=== PATIENT | male | born 1945 | race Asian ===

== ENCOUNTER 2017-02-04 17:58 | Inpatient (IN) | payer MEDICARE ==
[~2017-02-04] VITALS: Ht 177.8 cm; Wt 86.2 kg
[2017-02-04 18:11] VITALS: BP 103/67
[2017-02-04 18:32] LABS: BASOPHILS % (AUTO) 0.8 % (0.0-2.0); LYMPHOCYTES % (AUTO) 8.8 % (20.0-45.0); MEAN CORPUSCULAR VOLUME 91 FL (80-99); MEAN PLATELET VOLUME 8.2 FL (6.5-10.1); MONOCYTES % (AUTO) 5.2 % (1.0-10.0); NEUTROPHILS % (AUTO) 84.2 % (45.0-75.0); PLATELET COUNT 103 K/UL (150-450); RED BLOOD COUNT 3.04 M/UL (4.70-6.10); RED CELL DISTRIBUTION WIDTH 14.7 % (11.6-14.8); WHITE BLOOD COUNT 6.3 K/UL (4.8-10.8)
[2017-02-04 18:40] LABS: APPEARANCE,URINE CLEAR; KETONES,URINE 1+ (NEGATIVE); LEUKOCYTE ESTERASE ,URINE 1+ (NEGATIVE); NITRITE,URINE NEGATIVE (NEGATIVE); PH,URINE 6 (4.5-8.0); PROTEIN,URINE 2+ (NEGATIVE); UROBILINOGEN,URINE 8 MG/DL (0.0-1.0)
[2017-02-04 18:51] LABS: MUCUS,URINE FEW /LPF (NONE/OCC); RBC,URINE 15-20 /HPF (0 - 0)
[2017-02-04] MEDS ORDERED: Unasyn 3gm Inj ONE (18:53)
[2017-02-04 18:58] LABS: ABG ALLEN TEST POSITIVE; ABG PCO2 54.6 mmHg (35.0-45.0); ALANINE AMINOTRANSFERASE 36 U/L (3-41); ALBUMIN/GLOBULIN RATIO 0.9 (1.0-2.7); ANION GAP 12 (5-15); ASPARTATE AMINO TRANSFERASE 27 U/L (5-40); CALCIUM 8.3 mg/dL (8.6-10.2); CARBON DIOXIDE 31 mEQ/L (20-30); CHLORIDE 88 mEQ/L (98-107); CREATININE 0.3 mg/dL (0.7-1.2); HEMOLYSIS 19; POTASSIUM 3.6 mEQ/L (3.4-4.9); SODIUM 131 mEQ/L (135-145); TOTAL PROTEIN 5.5 g/dL (6.6-8.7); TROPONIN I < 0.30 ng/mL (<=0.30)
[2017-02-04] MEDS ORDERED: metroNIDAZOLE 500mg 100 ML IVPB ONE (19:00)
[2017-02-04] MEDS ORDERED: Ampicillin/Sulbactam Sod 3 GM in NS 110 ML IVPB ONE (19:00)
[2017-02-04 19:09] LABS: CKMB 5.5 ng/mL (< 6.7)
[2017-02-04] MEDS ORDERED: ACETAMINOPHEN325 M1 GT (19:16)
[2017-02-04] MEDS ORDERED: BENEPROTEIN1 EACH GT (19:17)
[2017-02-04] MEDS ORDERED: BISACODYL5 MG RECTAL (19:18)
[2017-02-04] MEDS ORDERED: LUBRICANT EYE1 EACH BOTH EYES (19:38)
[2017-02-04] MEDS ORDERED: DIGOXIN125 MCG GT (19:40)
[2017-02-04] MEDS ORDERED: CARVEDILOL3.125 MG GT (19:40)
[2017-02-04] MEDS ORDERED: DOCUSATE SODIU100 MG ORAL (19:41)
[2017-02-04 19:55] VITALS: BP 114/80
[2017-02-04] MEDS ORDERED: EPOGEN10000 UNIT SUBQ (19:58)
[2017-02-04] MEDS ORDERED: FERROUS SU220 MG/53 GT (20:00)
[2017-02-04] MEDS ORDERED: FUROSEMIDE20 M1 GT (20:00)
[2017-02-04] MEDS ORDERED: GLUCAGON EMERGEN1 MG IM (20:01)
[2017-02-04] MEDS ORDERED: NORCO 5-325 TA1 EAC1 GT (20:02)
[2017-02-04] MEDS ORDERED: INVANZ1 GM IV (20:03)
[2017-02-04] MEDS ORDERED: MAGNESIUM200 M1 GT (20:04)
[2017-02-04] MEDS ORDERED: MULTI-DELYN237 ML GT (20:05)
[2017-02-04] MEDS ORDERED: NOVOLIN R100 UNIT/1 SUBQ (20:17)
[2017-02-04] MEDS ORDERED: PROTONIX40 MG GT (20:18)
[2017-02-04] MEDS ORDERED: CARAFATE1 G1 GT (20:19)
[2017-02-04] MEDS ORDERED: VITAMIN C500 M1 GT (20:19)
[2017-02-04] MEDS ORDERED: Enoxaparin 80mg Inj SUBQ SCH (21:30)
--- NOTE | 2017-02-04 21:40 | Emergency Room Report ---
History of Present Illness General Chief Complaint: Dyspnea/Respdistress Source: Patient, EMS Present Illness HPI Patient is a 72-year-old male who presented after increased desaturation from the correction. Patient had recently been hospitalized at another facility and was sent to the correction subsequently. 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 Patient had prior spinal cord injury to the upper cervical spine. Patient was noted to be the having difficulty with bagging. The patient was suctioned. He was started on supplemental oxygen by EMS.He was not noted to have any fever.The patient previously been on anticoagulation Allergies: Coded Allergies: No Known Allergies (Unverified , 02/04/17) Patient History Past Medical History: see triage record Reviewed Nursing Documentation: PMH: Agreed, PSxH: Agreed Nursing Documentation-PMH Hx Cardiac Problems: Yes - HF, A-FIB, BRADYCARDIA, THROMBOCYTPENIA Hx Hypertension: Yes Review of Systems All Other Systems: negative except mentioned in HPI Physical Exam Vital Signs Date Time Temp Pulse Resp B/P Pulse Ox O2 Delivery O2 Flow Rate FiO2 02/04/17 17:52 75 23 105/75 89 02/04/17 18:02 40 02/04/17 18:02 Mechanical Ventilator 02/04/17 18:11 97.0 General Appearance: normal inspection, well appearing, no apparent distress, alert, GCS 15 Neck: tracheotomy Respiratory: normal inspection, chest non-tender, lungs clear Cardiovascular #1: normal inspection, normal peripheral pulses, regular rate, rhythm Gastrointestinal: non tender, soft Musculoskeletal: decreased range of motion Neurologic: alert, oriented x3, motor weakness Skin: normal inspection Medical Decision Making Diagnostic Impression: Primary Impression: Pulmonary embolism Additional Impressions: Quadriplegia Ventilator dependent ER Course Patient presented for shortness of breath. Differential included but was not limited to anemia, pneumonia, pneumothorax, myocardial infarction, pericardial effusion, congestive heart failure, acidosis. Because of complexity of patient' s case laboratory testing and imaging studies were ordered. Patient was noted to have ABG with relatively hypoxia. CT the chest was ordered due to possible pulmonary embolism. The patient was noted to have CT the chest read by radiologist with bilateral subsegmental pulmonary embolism. The patient noted be hemodynamically stable. Patient was given Lovenox. Dr. Charles was contacted for inpatient management Labs Test 02/04/17 18:05 White Blood Count 6.3 K/UL (4.8-10.8) Red Blood Count 3.04 M/UL (4.70-6.10) Hemoglobin 9.1 G/DL (14.2-18.0) Hematocrit 27.7 % (42.0-52.0) Mean Corpuscular Volume 91 FL (80-99) Mean Corpuscular Hemoglobin 30.0 PG (27.0-31.0) Mean Corpuscular Hemoglobin Concent 33.0 G/DL (32.0-36.0) Red Cell Distribution Width 14.7 % (11.6-14.8) Platelet Count 103 K/UL (150-450) Mean Platelet Volume 8.2 FL (6.5-10.1) Neutrophils (%) (Auto) 84.2 % (45.0-75.0) Lymphocytes (%) (Auto) 8.8 % (20.0-45.0) Monocytes (%) (Auto) 5.2 % (1.0-10.0) Eosinophils (%) (Auto) 1.0 % (0.0-3.0) Basophils (%) (Auto) 0.8 % (0.0-2.0) Urine Color Yellow Urine Appearance Clear Urine pH 6 (4.5-8.0) Urine Specific [place] 1.020 (1.005-1.035) Urine Protein 2+ (NEGATIVE) Urine Glucose (UA) Negative (NEGATIVE) Urine Ketones 1+ (NEGATIVE) Urine Occult Blood 4+ (NEGATIVE) Urine Nitrite Negative (NEGATIVE) Urine Bilirubin Negative (NEGATIVE) Urine Urobilinogen 8 MG/DL (0.0-1.0) Urine Leukocyte Esterase 1+ (NEGATIVE) Urine RBC 15-20 /HPF (0 - 0) Urine WBC 2-4 /HPF (0 - 0) Urine Squamous Epithelial Cells None /LPF (NONE/OCC) Urine Bacteria None /HPF (NONE) Urine Mucus Few /LPF (NONE/OCC) Arterial Blood pH 7.433 (7.350-7.450) Arterial Blood Partial Pressure CO2 54.6 mmHg (35.0-45.0) Arterial Blood Partial Pressure O2 137.0 mmHg (75.0-100.0) Arterial Blood HCO3 35.7 mmol/L (22.0-26.0) Arterial Blood Oxygen Saturation 98.2 % (92.0-98.0) Arterial Blood Base Excess 10.0 Reyes Test Positive Sodium Level 131 mEQ/L (135-145) Potassium Level 3.6 mEQ/L (3.4-4.9) Chloride Level 88 mEQ/L (98-107) Carbon Dioxide Level 31 mEQ/L (20-30) Anion Gap 12 (5-15) Blood Urea Nitrogen 20 mg/dL (7-23) Creatinine 0.3 mg/dL (0.7-1.2) Estimat Glomerular Filtration Rate mL/min (>60) Glucose Level 128 mg/dL (74-106) Lactic Acid Level 1.00 mmol/L (0.66-2.22) Calcium Level 8.3 mg/dL (8.6-10.2) Total Bilirubin 0.5 mg/dL (0.0-1.2) Aspartate Amino Transf (AST/SGOT) 27 U/L (5-40) Alanine Aminotransferase (ALT/SGPT) 36 U/L (3-41) Alkaline Phosphatase 95 U/L (40-129) Total Creatine Kinase 48 U/L (38-174) Creatine Kinase MB 5.5 ng/mL (< 6.7) Creatine Kinase MB Relative Index 11.4 Troponin I < 0.30 ng/mL (<=0.30) Pro-B-Type Natriuretic Peptide 1769 pg/mL (0-125) Total Protein 5.5 g/dL (6.6-8.7) Albumin 2.7 g/dL (3.5-5.2) Globulin 2.8 g/dL Albumin/Globulin Ratio 0.9 (1.0-2.7) EKG Diagnostic Results Rate: other - afib Rhythm: other - afib ST Segments: other - inferior, anterior t wave inversion Last Vital Signs Date Time Temp Pulse Resp B/P Pulse Ox O2 Delivery O2 Flow Rate FiO2 02/04/17 20:56 81 19 80 02/04/17 19:55 114/80 100 Mechanical Ventilator 02/04/17 18:11 97.0 Status: unchanged Disposition: ADMITTED INPATIENT Condition: Serious Referrals: MARGARETH CHARLES (PCP) Jurgen Garza Feb 04, 2017 21:39
[2017-02-04 22:00] VITALS: BP 115/75
[2017-02-04] MEDS ORDERED: Bisacodyl EC 5mg tab ORAL PRN (22:15)
[2017-02-05] VITALS: BP 110/56
[2017-02-05] MEDS: Norco 5mg/325mg tab GT SCH ×4 (00:12→18:41)
[2017-02-05 04:00] VITALS: BP 119/76
[2017-02-05] MEDS: NovoLOG Insulin Flexpen SUBQ SCH ×4 (05:42→18:43)
[2017-02-05] MEDS: Sucralfate 1gm tab GT SCH ×4 (05:46→21:04)
[2017-02-05 08:00] VITALS: BP 104/68
[2017-02-05] MEDS ORDERED: Digoxin 0.125mg tab ORAL SCH (09:00)
[2017-02-05] MEDS: Digoxin 0.125mg tab GT SCH (09:03)
[2017-02-05] MEDS: Ferrous Sulfate 300 MG/5 ML UDC NG SCH ×3 (09:03→18:36)
[2017-02-05] MEDS: Ascorbic Acid 500mg tab GT SCH (09:03)
[2017-02-05] MEDS: Lacri-Lube Opth Oint 3.5gm BOTH EYES SCH ×2 (09:04→20:56)
[2017-02-05] MEDS: Enoxaparin Sodium 300mg/3ml vial SUBQ SCH ×2 (09:13→20:59)
--- NOTE | 2017-02-05 10:06 | Diagnostic Imaging Report ---
Clinical history: Shortness of breath Technique: Portable AP chest radiograph was obtained. Comparison: None Findings: Tracheostomy tube is noted. Left chest single-lead pacemaker is noted. There is cardiomegaly with probable mild pulmonary edema. Small bilateral pleural effusions are identified. Groundglass opacities in the right mid and lower lung and patchy consolidation or mass at the left lung base noted. Please refer to the recently performed chest CT report. ACDF orthopedic hardware is partially imaged in the lower cervical spine. Impression: 1. Cardiomegaly with probable mild pulmonary edema and small effusions. Left chest pacemaker. 2. Ill-defined right and left basilar opacities suspicious for atelectasis or pneumonia. A left basilar mass is not excluded. Please refer to the recently performed chest CT report. 3. Tracheostomy tube and ACDF hardware noted.
--- NOTE | 2017-02-05 10:47 | Consultation ---
Consult Note Consult Note Patient is a 72-year-old male who presented after ongoing desaturation from the [facility]. Patient had recently been hospitalized at another facility and was sent to the [facility] subsequently for senior care subacute care and management. Patient noted be trach/vent dependent. Patient had prior spinal cord injury to the upper cervical spine with ACDF. Patient was noted to be the having difficulty with bagging and unable to maintain adequate oxygen saturations. He was brought over by paramedics.The patient had been previously on anticoagulation Allergies: No Known Allergies (Unverified , 02/04/17) Past Medical History: CHF, A-FIB, THROMBOCYTPENIA, HYPERTENSION, TRACH, GT, RESPIRATORY FAILURE, CARDIOMYOPATHY Physical Sp02 EP Interpretation: reviewed, normal General Appearance: normal inspection, well appearing, no apparent distress Head: normocephalic, atraumatic Neck: normal inspection, full range of motion, supple, no meningismus, carotid 2+ trach Respiratory: decreased breath sounds, no rhonchi Cardiovascular #1: regular rate, rhythm, no murmur without MRG Gastrointestinal: non tender, soft, non-distended, no guarding, no rebound Musculoskeletal: no CC; mild edema Neurologic: withdrawn Laboratory Tests Test 02/04/17 18:05 White Blood Count 6.3 K/UL (4.8-10.8) Red Blood Count 3.04 M/UL (4.70-6.10) L Hemoglobin 9.1 G/DL (14.2-18.0) L Hematocrit 27.7 % (42.0-52.0) L Mean Corpuscular Volume 91 FL (80-99) Mean Corpuscular Hemoglobin 30.0 PG (27.0-31.0) Mean Corpuscular Hemoglobin Concent 33.0 G/DL (32.0-36.0) Red Cell Distribution Width 14.7 % (11.6-14.8) Platelet Count 103 K/UL (150-450) L Mean Platelet Volume 8.2 FL (6.5-10.1) Neutrophils (%) (Auto) 84.2 % (45.0-75.0) H Lymphocytes (%) (Auto) 8.8 % (20.0-45.0) L Monocytes (%) (Auto) 5.2 % (1.0-10.0) Eosinophils (%) (Auto) 1.0 % (0.0-3.0) Basophils (%) (Auto) 0.8 % (0.0-2.0) Urine Color Yellow Urine Appearance Clear Urine pH 6 (4.5-8.0) Urine Specific [place] 1.020 (1.005-1.035) Urine Protein 2+ (NEGATIVE) H Urine Glucose (UA) Negative (NEGATIVE) Urine Ketones 1+ (NEGATIVE) H Urine Occult Blood 4+ (NEGATIVE) H Urine Nitrite Negative (NEGATIVE) Urine Bilirubin Negative (NEGATIVE) Urine Urobilinogen 8 MG/DL (0.0-1.0) H Urine Leukocyte Esterase 1+ (NEGATIVE) H Urine RBC 15-20 /HPF (0 - 0) H Urine WBC 2-4 /HPF (0 - 0) Urine Squamous Epithelial Cells None /LPF (NONE/OCC) Urine Bacteria None /HPF (NONE) Urine Mucus Few /LPF (NONE/OCC) H Arterial Blood pH 7.433 (7.350-7.450) Arterial Blood Partial Pressure CO2 54.6 mmHg (35.0-45.0) H Arterial Blood Partial Pressure O2 137.0 mmHg (75.0-100.0) H Arterial Blood HCO3 35.7 mmol/L (22.0-26.0) H Arterial Blood Oxygen Saturation 98.2 % (92.0-98.0) H Arterial Blood Base Excess 10.0 Reyes Test Positive Sodium Level 131 mEQ/L (135-145) L Potassium Level 3.6 mEQ/L (3.4-4.9) Chloride Level 88 mEQ/L (98-107) L Carbon Dioxide Level 31 mEQ/L (20-30) H Anion Gap 12 (5-15) Blood Urea Nitrogen 20 mg/dL (7-23) Creatinine 0.3 mg/dL (0.7-1.2) L Estimat Glomerular Filtration Rate mL/min (>60) Glucose Level 128 mg/dL (74-106) H Lactic Acid Level 1.00 mmol/L (0.66-2.22) Calcium Level 8.3 mg/dL (8.6-10.2) L Total Bilirubin 0.5 mg/dL (0.0-1.2) Aspartate Amino Transf (AST/SGOT) 27 U/L (5-40) Alanine Aminotransferase (ALT/SGPT) 36 U/L (3-41) Alkaline Phosphatase 95 U/L (40-129) Total Creatine Kinase 48 U/L (38-174) Creatine Kinase MB 5.5 ng/mL (< 6.7) Creatine Kinase MB Relative Index 11.4 Troponin I < 0.30 ng/mL (<=0.30) Pro-B-Type Natriuretic Peptide 1769 pg/mL (0-125) H Total Protein 5.5 g/dL (6.6-8.7) L Albumin 2.7 g/dL (3.5-5.2) L Globulin 2.8 g/dL Albumin/Globulin Ratio 0.9 (1.0-2.7) L IMPRESSION PE hypoxemia respiratory failure GT Trach thrombocytopenia PLAN Lovenox Xarelto resume meds nutrition feeds follow up care noted and reviewed impression, plan, and exam edited and reviewed in detail care discussed with MARGARETH BLAKE Feb 05, 2017 10:47
[2017-02-05 12:00] VITALS: BP 92/69
[2017-02-05 16:00] VITALS: BP 111/74
--- NOTE | 2017-02-05 16:18 | Wound Care Consultation ---
Wound Assessment Wound Assessment #1: Wound Present on Admission: Yes New Wound: No Status Change of Wound: No Wound Location Body Site Modif: mid Wound Location Body Site: other - sacrococcygeal Wound Type: pressure ulcer Myrna Test: Does not Myrna Pressure Ulcer Stage: IV/unstageable Wound Thickness: Full Thickness Wound Length: 4.5 Wound Width: 5.5 Wound Depth: utd Percent of Wound [place]/Red: 70 Percent of Wound Bed Yellow/Wh: 20 Percent of Wound Purple/Maroon: 10 Wound Drainage Description: Serosanguineous Wound Drainage Amount: Moderate Wound Drainage Odor: None/Absent Tissue Surrounding Wound: Macerated Wound General Appearance: Reddened, Draining Wound Assessment #2: Wound Number: #2 Wound Present on Admission: Yes New Wound: No Status Change of Wound: No Wound Location Body Site Modif: left Wound Location Body Site: ischial tuberosity Wound Type: pressure ulcer Myrna Test: Does not Myrna Pressure Ulcer Stage: III Wound Thickness: Full Thickness Wound Length: 3.0 Wound Width: 3.0 Wound Depth: 0.3 Percent of Wound [place]/Red: 100 Wound Drainage Description: Serosanguineous Wound Drainage Amount: Scant Wound Drainage Odor: None/Absent Tissue Surrounding Wound: Macerated Wound General Appearance: Reddened, Draining Wound Comment #1 Sacrococcygeal stage IV/unsageable pressure ulcer #2 Left ischial tuberosity stage III pressure ulcer Recommendation -Sacrococcygeal pressure ulcer Cleanse with saline, pat dry, apply Triad cream, cover with Biatain silicone drg daily and PRN soiled/dislodged -Left ischial tuberosity Cleanse with saline pat dry apply Triad cream cover with Biatain silicone daily and PRN soiled/dislodged -Turn and reposition -Keep clean and dry -Optimize nutrition -Low air loss overlay mattress -Heel protector on both heels -Offload both heels -Assess and f/u accordingly for any changes VICK RODRIGUEZ RN Feb 05, 2017 16:18
[2017-02-05 20:11] VITALS: BP 108/49
[2017-02-06] VITALS: BP 121/74
[2017-02-06] MEDS: Norco 5mg/325mg tab GT SCH ×4 (00:25→18:34)
[2017-02-06] MEDS: NovoLOG Insulin Flexpen SUBQ SCH ×5 (00:34→23:58)
[2017-02-06 04:00] VITALS: BP 118/65
[2017-02-06 05:28] LABS: EOSINOPHILS % (AUTO) 1.9 % (0.0-3.0); LYMPHOCYTES % (AUTO) 13.9 % (20.0-45.0); MEAN CORPUSCULAR HEMOGLOBIN 30.9 PG (27.0-31.0); MEAN CORPUSCULAR HGB CONC 33.4 G/DL (32.0-36.0); MEAN CORPUSCULAR VOLUME 93 FL (80-99); MEAN PLATELET VOLUME 8.1 FL (6.5-10.1); MONOCYTES % (AUTO) 7.2 % (1.0-10.0); NEUTROPHILS % (AUTO) 76.1 % (45.0-75.0); PLATELET COUNT 137 K/UL (150-450); RED BLOOD COUNT 2.91 M/UL (4.70-6.10); WHITE BLOOD COUNT 5.4 K/UL (4.8-10.8)
[2017-02-06 05:44] LABS: ANION GAP 9 (5-15); CARBON DIOXIDE 32 mEQ/L (20-30); CHLORIDE 94 mEQ/L (98-107); CREATININE 0.4 mg/dL (0.7-1.2); HEMOLYSIS 2; POTASSIUM 3.6 mEQ/L (3.4-4.9); SODIUM 135 mEQ/L (135-145)
[2017-02-06] MEDS: Sucralfate 1gm tab GT SCH ×4 (05:57→22:10)
[2017-02-06 08:00] VITALS: BP 123/78
--- NOTE | 2017-02-06 08:43 | Diagnostic Imaging Report ---
EXAM: CT Chest with contrast. HISTORY: Chest pain. TECHNIQUE: Serial 3.0 mm axial images were obtained from the thoracic inlet through the adrenals after the administration of intravenous contrast. Coronal and sagittal reformats were performed. COMPARISON: No prior study is available for comparison. Dose Estimate: Total DLP 799 mGycm CTDIvol 12 mGy FINDINGS: Mild ectasia of the distal descending aorta is noted. The remaining thoracic aorta and great vessels appear normal in caliber with mild scattered atherosclerotic vascular disease. An eccentric filling defect in a left upper lobe anterior segmental pulmonary artery branch is suspicious for pulmonary embolism. Left upper lobe subsegmental pulmonary embolism is suspected. There is cardiomegaly with marked enlargement of the right atrium. Left chest single lead pacemaker is identified. Trace pericardial fluid is identified. Tracheostomy tube terminates in the midtrachea. Ill-defined opacities in the upper trachea likely represent secretions. Moderate volume bilateral pleural effusions are identified with relaxation atelectasis at the bases. Ill-defined groundglass and patchy densities throughout the right lung and left lung base could represent pulmonary edema or multifocal pneumonia. There is no pneumothorax. No distinct mediastinal or hilar adenopathy. Mediastinal fluid is noted. Gastrostomy tube is noted in the mid stomach body. The stomach is decompressed and otherwise not optimally evaluated. Small volume ascites noted. Small probable cyst is present in the posterior right hepatic lobe and left hepatic lobe. Small gallstones are identified. The visualized bony structures appear intact. IMPRESSION: 1. Subsegmental pulmonary embolism involving the bilateral upper lobes, as described. 2. Cardiomegaly with marked right atrial enlargement. Left chest pacemaker identified. 3. Moderate bilateral pleural effusions with basilar atelectasis. Asymmetric pulmonary edema or multifocal pneumonia is suspected. 4. Tracheostomy tube. Probable secretions in the upper trachea. 5. Gastrostomy tube. 6. Small volume ascites. Probable liver cyst. Cholelithiasis.
--- NOTE | 2017-02-06 09:10 | Pulmonology Progress Note ---
Assessment/Plan Assessment/Plan PE cardiomyopathy respiratory failure hypoxemia trach gt chronic encephalopathy anemia PLAN care as is lovenox monitor for change convert to oral anticoag follow up [facility] anticoag needed dc in am if stable Subjective ROS Limited/Unobtainable: Yes Allergies: Coded Allergies: No Known Allergies (Unverified , 02/04/17) Objective Last 24 Hour Vital Signs Date Time Temp Pulse Resp B/P Pulse Ox O2 Delivery O2 Flow Rate FiO2 02/06/17 06:57 98.1 02/06/17 06:46 72 18 50 02/06/17 04:39 69 21 50 02/06/17 04:00 40 02/06/17 04:00 97.8 71 18 118/65 100 40 02/06/17 04:00 69 02/06/17 03:28 71 19 50 02/06/17 00:43 61 02/06/17 00:41 7 19 50 02/06/17 00:00 97.7 70 20 121/74 100 40 02/06/17 00:00 40 02/05/17 23:23 68 19 50 02/05/17 20:59 67 19 50 02/05/17 20:11 98.1 72 22 108/49 40 02/05/17 20:10 40 02/05/17 20:00 61 02/05/17 18:49 68 21 50 02/05/17 18:39 91 111/74 02/05/17 17:40 71 19 50 02/05/17 16:00 69 02/05/17 16:00 97.7 83 20 111/74 40 02/05/17 16:00 40 02/05/17 15:24 74 19 50 02/05/17 13:27 58 17 40 02/05/17 12:00 50 02/05/17 12:00 97.7 62 16 92/69 100 50 02/05/17 12:00 69 02/05/17 11:10 69 17 50 02/05/17 09:20 68 15 60 Intake and Output 02/05/17 02/06/17 19:00 07:00 Intake Total 590 ml 890 ml Output Total 250 ml 475 ml Balance 340 ml 415 ml Intake Free Water 80 ml 450 ml Tube Feeding 390 ml 440 ml Other 120 ml Output Urine Total 250 ml 475 ml # Bowel Movements 1 Objective WDWN NAD reduced breath sounds bilaterally without rhonchi or wheeze [id number] without MRG NABS nontender no HSM; GT no CC; minimal edema trach nonfocal Microbiology Date/Time Source Procedure Growth Status 02/04/17 18:05 Blood Blood Culture - Preliminary NO GROWTH AFTER 24 HOURS Resulted 02/04/17 17:56 Blood Blood Culture - Preliminary NO GROWTH AFTER 24 HOURS Resulted Laboratory Tests 02/06/17 04:06: White Blood Count 5.4, Red Blood Count 2.91L, Hemoglobin 9.0L, Hematocrit 27.0L , Mean Corpuscular Volume 93, Mean Corpuscular Hemoglobin 30.9, Mean Corpuscular Hemoglobin Concent 33.4, Red Cell Distribution Width 15.0H, Platelet Count 137L, Mean Platelet Volume 8.1, Neutrophils (%) (Auto) 76.1H, Lymphocytes (%) (Auto) 13.9L, Monocytes (%) (Auto) 7.2, Eosinophils (%) (Auto) 1.9, Basophils (%) (Auto) 1.0, Sodium Level 135, Potassium Level 3.6, Chloride Level 94L, Carbon Dioxide Level 32H, Anion Gap 9, Blood Urea Nitrogen 17, Creatinine 0.4L, Estimat Glomerular Filtration Rate , Glucose Level 102, Calcium Level 8.0L Current Medications Medications (Trade) Dose Ordered Sig/Kiet Route PRN Reason Start Time Stop Time Status Last Admin Dose Admin Acetaminophen (Tylenol) 325 mg Q6H PRN ORAL For Pain 02/04/17 22:15 03/06/17 22:14 Acetaminophen/ Hydrocodone Bitart ([place] 5/325) 1 tab Q6H GT 02/05/17 00:00 02/12/17 00:00 02/06/17 05:58 Artificial Tears (Lacri-Lube) 1 applic EVERY 12 HOURS BOTH EYES 02/05/17 09:00 03/07/17 08:59 02/05/17 20:56 Ascorbic Acid (Vitamin C) 500 mg DAILY GT 02/05/17 09:00 03/07/17 08:59 02/05/17 09:03 Bisacodyl (Dulcolax) 10 mg PRN PRN ORAL Constipation 02/04/17 22:15 03/06/17 22:14 Carvedilol (Coreg) 3.125 mg TWICE A DAY GT 02/05/17 09:00 03/07/17 08:59 02/05/17 18:39 Dextrose (Dextrose 50%) STAT PRN IV Hypoglycemia 02/04/17 22:15 03/06/17 22:14 Digoxin (Lanoxin) 0.125 mg DAILY GT 02/05/17 09:00 03/07/17 08:59 02/05/17 09:03 Enoxaparin Sodium (Lovenox) 90 mg EVERY 12 HOURS SUBQ 02/05/17 09:00 03/07/17 08:59 02/05/17 20:59 Epoetin Ambrose (Procrit (for non ESRD use)) 10,000 units MON-MON-MON SUBQ 02/06/17 21:00 03/08/17 20:59 Ferrous Sulfate (Feosol) 330 mg THREE TIMES A DAY NG 02/05/17 09:00 03/07/17 08:59 02/05/17 18:36 Furosemide (Lasix) 20 mg TWICE A DAY GT 02/05/17 09:00 03/07/17 08:59 02/05/17 18:37 Insulin Aspart (NovoLOG) EVERY 6 HOURS SUBQ 02/05/17 00:00 03/07/17 00:00 02/06/17 00:34 Multivitamins (Multivitamins) 1 tab DAILY ORAL 02/05/17 09:00 03/07/17 08:59 02/05/17 09:03 Pantoprazole (Protonix) 40 mg DAILY IVP 02/06/17 09:00 03/08/17 08:59 Sucralfate (Carafate) 1 gm AC+HS GT 02/05/17 06:30 03/07/17 06:29 02/06/17 05:57 MARGARETH VALENTINE Feb 06, 2017 09:10
[2017-02-06 09:13] LABS: ABG ALLEN TEST POSITIVE; ABG BASE EXCESS 8.8; ABG PCO2 48.9 mmHg (35.0-45.0)
[2017-02-06] MEDS: Lacri-Lube Opth Oint 3.5gm BOTH EYES SCH ×2 (09:22→22:10)
[2017-02-06] MEDS: Digoxin 0.125mg tab GT SCH (09:23)
[2017-02-06] MEDS: Ascorbic Acid 500mg tab GT SCH (09:23)
[2017-02-06] MEDS: Ferrous Sulfate 300 MG/5 ML UDC NG SCH ×3 (09:23→18:46)
[2017-02-06] MEDS: Pantoprazole Inj IVP SCH (09:24)
[2017-02-06] MEDS: Enoxaparin Sodium 300mg/3ml vial SUBQ SCH ×2 (09:37→22:12)
[2017-02-06 12:00] VITALS: BP 112/73
[2017-02-06 16:00] VITALS: BP 118/84
--- NOTE | 2017-02-06 16:11 | Diagnostic Imaging Report ---
Indication: DYSPNEA Technique: One view of the chest Comparison: 02/04/2017 Findings: There is a tracheostomy. The heart is enlarged. There are bilateral pleural effusions. There is bilateral basilar parenchymal disease as well. Tracheostomy, pacemaker again demonstrated. Right shoulder may be subluxed. Findings are overall unchanged Impression: Unchanged, over 2 days, findings as above. Note possible right shoulder subluxation, probably just an artifact of positioning. Correlate with clinical findings
[2017-02-06 19:00] VITALS: BP 124/79
[2017-02-06] MEDS: Epogen (for non ESRD use) SUBQ SCH (22:10)
[2017-02-07 00:36] VITALS: BP 128/78
[2017-02-07 04:00] VITALS: BP 145/86
[2017-02-07] MEDS: Norco 5mg/325mg tab GT SCH ×4 (05:43→17:40)
[2017-02-07] MEDS: NovoLOG Insulin Flexpen SUBQ SCH ×3 (05:45→17:42)
[2017-02-07] MEDS: Sucralfate 1gm tab GT SCH ×4 (05:53→20:04)
[2017-02-07 08:00] VITALS: BP 134/82
[2017-02-07] MEDS: Digoxin 0.125mg tab GT SCH (09:04)
[2017-02-07] MEDS: Lacri-Lube Opth Oint 3.5gm BOTH EYES SCH ×2 (09:04→20:03)
[2017-02-07] MEDS: Ascorbic Acid 500mg tab GT SCH (09:04)
[2017-02-07] MEDS: Ferrous Sulfate 300 MG/5 ML UDC NG SCH ×3 (09:05→17:39)
[2017-02-07] MEDS: Pantoprazole Inj IVP SCH (09:06)
[2017-02-07] MEDS: Enoxaparin Sodium 300mg/3ml vial SUBQ SCH ×2 (09:08→20:07)
[2017-02-07 12:00] VITALS: BP 123/72
--- NOTE | 2017-02-07 15:06 | Pulmonology Progress Note ---
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 if stable and shoulder xray negative Subjective Allergies: Coded Allergies: No Known Allergies (Unverified , 02/04/17) Objective Last 24 Hour Vital Signs Date Time Temp Pulse Resp B/P Pulse Ox O2 Delivery O2 Flow Rate FiO2 02/07/17 14:51 76 16 50 02/07/17 13:20 60 20 50 02/07/17 13:18 98.2 02/07/17 12:00 50 02/07/17 12:00 77 02/07/17 12:00 96.8 71 19 123/72 100 Mechanical Ventilator 40 02/07/17 11:12 64 18 50 02/07/17 09:30 68 21 50 02/07/17 09:05 76 134/82 02/07/17 09:04 76 02/07/17 08:00 61 02/07/17 08:00 50 02/07/17 08:00 97.9 76 21 134/82 100 Mechanical Ventilator 50 02/07/17 06:58 66 18 50 02/07/17 04:53 61 20 50 02/07/17 04:00 63 02/07/17 04:00 98.1 75 24 145/86 100 Mechanical Ventilator 50 02/07/17 04:00 50 02/07/17 03:17 64 20 60 02/07/17 00:36 98.1 64 22 128/78 100 Mechanical Ventilator 80 02/07/17 00:33 63 20 70 02/07/17 00:00 80 02/07/17 00:00 64 02/06/17 22:35 67 23 80 02/06/17 20:37 66 22 90 02/06/17 20:00 40 02/06/17 20:00 60 02/06/17 19:00 98.2 63 20 124/79 100 Mechanical Ventilator 100 02/06/17 18:47 74 118/84 02/06/17 18:40 62 24 95 02/06/17 17:09 67 20 100 02/06/17 16:00 74 02/06/17 16:00 40 02/06/17 16:00 98.1 74 20 118/84 100 Mechanical Ventilator 100 02/06/17 15:29 64 19 100 Intake and Output 02/06/17 02/07/17 19:00 07:00 Intake Total 540 ml 880 ml Output Total 900 ml 1000 ml Balance -360 ml -120 ml Intake Free Water 100 ml 400 ml Tube Feeding 440 ml 480 ml Output Urine Total 900 ml 1000 ml Objective WDWN NAD reduced breath sounds bilaterally without rhonchi or wheeze [id number] without MRG NABS nontender no HSM; GT no CC; minimal edema trach nonfocal Microbiology Date/Time Source Procedure Growth Status 02/04/17 18:05 Blood Blood Culture - Preliminary NO GROWTH AFTER 48 HOURS Resulted 02/04/17 17:56 Blood Blood Culture - Preliminary NO GROWTH AFTER 48 HOURS Resulted 02/05/17 13:30 Sacral Wound Gram Stain - Final Resulted 02/05/17 13:30 Wound Culture - Preliminary Gram Negative Bacillus 1 Resulted Current Medications Medications (Trade) Dose Ordered Sig/Kiet Route PRN Reason Start Time Stop Time Status Last Admin Dose Admin Acetaminophen (Tylenol) 325 mg Q6H PRN ORAL For Pain 02/04/17 22:15 03/06/17 22:14 Acetaminophen/ Hydrocodone Bitart ([place] 5/325) 1 tab Q6H GT 02/05/17 00:00 02/12/17 00:00 02/07/17 12:19 Artificial Tears (Lacri-Lube) 1 applic EVERY 12 HOURS BOTH EYES 02/05/17 09:00 03/07/17 08:59 02/07/17 09:04 Ascorbic Acid (Vitamin C) 500 mg DAILY GT 02/05/17 09:00 03/07/17 08:59 02/07/17 09:04 Bisacodyl (Dulcolax) 10 mg PRN PRN ORAL Constipation 02/04/17 22:15 03/06/17 22:14 Carvedilol (Coreg) 3.125 mg TWICE A DAY GT 02/05/17 09:00 03/07/17 08:59 02/07/17 09:05 Dextrose (Dextrose 50%) STAT PRN IV Hypoglycemia 02/04/17 22:15 03/06/17 22:14 Digoxin (Lanoxin) 0.125 mg DAILY GT 02/05/17 09:00 03/07/17 08:59 02/07/17 09:04 Enoxaparin Sodium (Lovenox) 90 mg EVERY 12 HOURS SUBQ 02/05/17 09:00 03/07/17 08:59 02/07/17 09:08 Epoetin Ambrose (Procrit (for non ESRD use)) 10,000 units MON-MON-MON SUBQ 02/06/17 21:00 03/08/17 20:59 02/06/17 22:10 Ferrous Sulfate (Feosol) 330 mg THREE TIMES A DAY NG 02/05/17 09:00 03/07/17 08:59 02/07/17 12:17 Furosemide (Lasix) 20 mg TWICE A DAY GT 02/05/17 09:00 03/07/17 08:59 02/07/17 09:05 Insulin Aspart (NovoLOG) EVERY 6 HOURS SUBQ 02/05/17 00:00 03/07/17 00:00 02/07/17 12:20 Multivitamins (Multivitamins) 1 tab DAILY ORAL 02/05/17 09:00 03/07/17 08:59 02/07/17 09:04 Pantoprazole (Protonix) 40 mg DAILY IVP 02/06/17 09:00 03/08/17 08:59 02/07/17 09:06 Sucralfate (Carafate) 1 gm AC+HS GT 02/05/17 06:30 03/07/17 06:29 02/07/17 12:17 MARGARETH VALENTINE Feb 07, 2017 15:06
[2017-02-07 16:00] VITALS: BP 124/77
--- NOTE | 2017-02-07 16:50 | Diagnostic Imaging Report ---
Indication: PAIN Technique: 3 views of the right shoulder Comparison: none Findings: There is inferior subluxation of the humeral head but no [place] dislocation. No acute fractures. Tracheostomy is incidentally noted Impression:Inferior subluxation of right shoulder, without [place] subluxation or fracture. Significance uncertain, possibly acute but more likely on the basis of chronic rotator cuff laxity. Correlate with clinical findings
[2017-02-07 20:00] VITALS: BP 101/75
[2017-02-08] VITALS: BP 128/83
[2017-02-08] MEDS: Norco 5mg/325mg tab GT SCH ×4 (01:22→17:36)
[2017-02-08] MEDS: NovoLOG Insulin Flexpen SUBQ SCH ×4 (01:28→17:47)
[2017-02-08 04:00] VITALS: BP 104/69
[2017-02-08] MEDS: Sucralfate 1gm tab GT SCH ×4 (06:08→21:23)
[2017-02-08 08:00] VITALS: BP 109/72
[2017-02-08 08:27] LABS: BASOPHILS % (AUTO) 0.5 % (0.0-2.0); EOSINOPHILS % (AUTO) 0.7 % (0.0-3.0); LYMPHOCYTES % (AUTO) 10.6 % (20.0-45.0); MEAN CORPUSCULAR HEMOGLOBIN 29.9 PG (27.0-31.0); MEAN CORPUSCULAR HGB CONC 32.3 G/DL (32.0-36.0); MEAN CORPUSCULAR VOLUME 92 FL (80-99); MEAN PLATELET VOLUME 7.1 FL (6.5-10.1); MONOCYTES % (AUTO) 4.5 % (1.0-10.0); NEUTROPHILS % (AUTO) 83.7 % (45.0-75.0); PLATELET COUNT 144 K/UL (150-450); RED BLOOD COUNT 3.11 M/UL (4.70-6.10); RED CELL DISTRIBUTION WIDTH 15.5 % (11.6-14.8); WHITE BLOOD COUNT 7.8 K/UL (4.8-10.8)
[2017-02-08 08:39] LABS: ANION GAP 10 (5-15); CARBON DIOXIDE 34 mEQ/L (20-30); CHLORIDE 89 mEQ/L (98-107); CREATININE 0.4 mg/dL (0.7-1.2); HEMOLYSIS 10; POTASSIUM 3.4 mEQ/L (3.4-4.9); SODIUM 133 mEQ/L (135-145)
[2017-02-08] MEDS: Ferrous Sulfate 300 MG/5 ML UDC NG SCH ×3 (09:23→17:34)
[2017-02-08] MEDS: Digoxin 0.125mg tab GT SCH (09:25)
[2017-02-08] MEDS: Ascorbic Acid 500mg tab GT SCH (09:25)
[2017-02-08] MEDS: Enoxaparin Sodium 300mg/3ml vial SUBQ SCH (09:27)
[2017-02-08] MEDS: Pantoprazole Inj IVP SCH (09:27)
[2017-02-08] MEDS: Lacri-Lube Opth Oint 3.5gm BOTH EYES SCH ×2 (09:27→21:24)
[2017-02-08 12:00] VITALS: BP 99/69
--- NOTE | 2017-02-08 12:25 | General Progress Note ---
Assessment/Plan Problem List: (1) Ventilator dependent ICD Codes: Z99.11 - Dependence on respirator [ventilator] status SNOMED: 090521740 (2) Quadriplegia ICD Codes: G82.50 - Quadriplegia, unspecified SNOMED: 84802969, 74090444 (3) Pulmonary embolism ICD Codes: I26.99 - Other pulmonary embolism without acute cor pulmonale SNOMED: 77868647, 25821087 Status: stable, progressing Assessment/Plan wean fio2 resp rx vent suctioning as needed abx d/w at the bedside Subjective ROS Limited/Unobtainable: Yes Constitutional: Reports: malaise, weakness HEENT: Reports: no symptoms Cardiovascular: Reports: no symptoms Respiratory: Reports: shortness of breath, sputum Gastrointestinal/Abdominal: Reports: difficulty swallowing Genitourinary: Reports: no symptoms Neurologic/Psychiatric: Reports: no symptoms Endocrine: Reports: no symptoms Hematologic/Lymphatic: Reports: anemia Allergies: Coded Allergies: No Known Allergies (Unverified , 02/04/17) All Systems: reviewed and negative except above Subjective hypoxic last night. was on 100% fio2. now down to 60. at the bedside. minimal bloody secretions. pt alert Objective Last 24 Hour Vital Signs Date Time Temp Pulse Resp B/P Pulse Ox O2 Delivery O2 Flow Rate FiO2 02/08/17 11:05 67 20 80 02/08/17 09:25 65 02/08/17 09:24 65 109/72 02/08/17 08:54 66 20 80 02/08/17 08:00 64 02/08/17 08:00 98.6 65 22 109/72 100 Mechanical Ventilator 80 02/08/17 08:00 10.0 80 02/08/17 06:30 65 21 80 02/08/17 04:41 62 21 80 02/08/17 04:00 10.0 40 02/08/17 04:00 98.0 66 18 104/69 100 Mechanical Ventilator 02/08/17 03:41 63 02/08/17 03:05 65 24 80 02/08/17 01:08 70 22 90 02/08/17 00:00 78 02/08/17 00:00 10.0 40 02/08/17 00:00 99.1 88 18 128/83 100 Trach Collar 02/07/17 23:08 67 18 35 02/07/17 20:30 74 17 35 02/07/17 20:29 74 17 35 02/07/17 20:00 97.9 84 18 101/75 100 Mechanical Ventilator 40 02/07/17 20:00 40 02/07/17 19:39 69 02/07/17 17:39 74 124/77 02/07/17 16:36 74 17 50 02/07/17 16:00 97.9 83 17 124/77 100 Mechanical Ventilator 40 02/07/17 16:00 40 02/07/17 15:27 69 02/07/17 14:51 76 16 50 02/07/17 13:20 60 20 50 02/07/17 13:18 98.2 Intake and Output 02/07/17 02/08/17 19:00 07:00 Intake Total 680 ml 360 ml Output Total 400 ml 700 ml Balance 280 ml -340 ml Intake Free Water 200 ml Tube Feeding 480 ml 360 ml Output Urine Total 400 ml 700 ml Laboratory Tests 02/08/17 08:00: White Blood Count 7.8, Red Blood Count 3.11L, Hemoglobin 9.3L, Hematocrit 28.7L , Mean Corpuscular Volume 92, Mean Corpuscular Hemoglobin 29.9, Mean Corpuscular Hemoglobin Concent 32.3, Red Cell Distribution Width 15.5H, Platelet Count 144L, Mean Platelet Volume 7.1, Neutrophils (%) (Auto) 83.7H, Lymphocytes (%) (Auto) 10.6L, Monocytes (%) (Auto) 4.5, Eosinophils (%) (Auto) 0.7, Basophils (%) (Auto) 0.5, Sodium Level 133L, Potassium Level 3.4, Chloride Level 89L, Carbon Dioxide Level 34H, Anion Gap 10, Blood Urea Nitrogen 14, Creatinine 0.4L, Estimat Glomerular Filtration Rate , Glucose Level 127H, Calcium Level 8.0L Height (Feet): 5 Height (Inches): 10.00 Weight (Pounds): 190 General Appearance: WD/WN, alert Neck: supple Cardiovascular: regular rhythm Respiratory/Chest: rhonchi - bilaterally Abdomen: normal bowel sounds, non tender, soft, no organomegaly Edema: no edema noted Arm (L), no edema noted Arm (R), no edema noted Leg (L), no edema noted Leg (R), no edema noted Pedal (L), no edema noted Pedal (R), no edema noted Generalized Neurologic: alert, responsive KAPIL ALVARADO Feb 08, 2017 12:24
--- NOTE | 2017-02-08 16:15 | Pulmonology Progress Note ---
Assessment/Plan Assessment/Plan PE cardiomyopathy respiratory failure hypoxemia trach gt chronic encephalopathy anemia PLAN care as is shoulder xray likely chronic lovenox; start Xarelto monitor for change follow up chest xr follow up [facility] anticoag needed dc in am if stable Subjective Allergies: Coded Allergies: No Known Allergies (Unverified , 02/04/17) Subjective still desaturating intermittently awake Objective Last 24 Hour Vital Signs Date Time Temp Pulse Resp B/P Pulse Ox O2 Delivery O2 Flow Rate FiO2 02/08/17 15:02 63 18 40 02/08/17 13:06 97.8 02/08/17 13:04 67 18 40 02/08/17 12:00 97.9 72 23 99/69 100 Mechanical Ventilator 60 02/08/17 12:00 66 02/08/17 12:00 10.0 60 02/08/17 11:05 67 20 60 02/08/17 09:25 65 02/08/17 09:24 65 109/72 02/08/17 08:54 66 20 80 02/08/17 08:00 64 02/08/17 08:00 98.6 65 22 109/72 100 Mechanical Ventilator 80 02/08/17 08:00 10.0 80 02/08/17 06:30 65 21 80 02/08/17 04:41 62 21 80 02/08/17 04:00 10.0 40 02/08/17 04:00 98.0 66 18 104/69 100 Mechanical Ventilator 02/08/17 03:41 63 02/08/17 03:05 65 24 80 02/08/17 01:08 70 22 90 02/08/17 00:00 78 02/08/17 00:00 10.0 40 02/08/17 00:00 99.1 88 18 128/83 100 Trach Collar 02/07/17 23:08 67 18 35 02/07/17 20:30 74 17 35 02/07/17 20:29 74 17 35 02/07/17 20:00 97.9 84 18 101/75 100 Mechanical Ventilator 40 02/07/17 20:00 40 02/07/17 19:39 69 02/07/17 17:39 74 124/77 02/07/17 16:36 74 17 50 Intake and Output 02/07/17 02/08/17 19:00 07:00 Intake Total 680 ml 360 ml Output Total 400 ml 700 ml Balance 280 ml -340 ml Intake Free Water 200 ml Tube Feeding 480 ml 360 ml Output Urine Total 400 ml 700 ml Objective WDWN NAD reduced breath sounds bilaterally without rhonchi or wheeze [id number] without MRG NABS nontender no HSM; GT no CC; minimal edema trach nonfocal Laboratory Tests 02/08/17 08:00: White Blood Count 7.8, Red Blood Count 3.11L, Hemoglobin 9.3L, Hematocrit 28.7L , Mean Corpuscular Volume 92, Mean Corpuscular Hemoglobin 29.9, Mean Corpuscular Hemoglobin Concent 32.3, Red Cell Distribution Width 15.5H, Platelet Count 144L, Mean Platelet Volume 7.1, Neutrophils (%) (Auto) 83.7H, Lymphocytes (%) (Auto) 10.6L, Monocytes (%) (Auto) 4.5, Eosinophils (%) (Auto) 0.7, Basophils (%) (Auto) 0.5, Sodium Level 133L, Potassium Level 3.4, Chloride Level 89L, Carbon Dioxide Level 34H, Anion Gap 10, Blood Urea Nitrogen 14, Creatinine 0.4L, Estimat Glomerular Filtration Rate , Glucose Level 127H, Calcium Level 8.0L Current Medications Medications (Trade) Dose Ordered Sig/Kiet Route PRN Reason Start Time Stop Time Status Last Admin Dose Admin Acetaminophen (Tylenol) 325 mg Q6H PRN ORAL For Pain 02/04/17 22:15 03/06/17 22:14 02/08/17 04:02 Acetaminophen/ Hydrocodone Bitart ([place] 5/325) 1 tab Q6H GT 02/05/17 00:00 02/12/17 00:00 02/08/17 12:07 Artificial Tears (Lacri-Lube) 1 applic EVERY 12 HOURS BOTH EYES 02/05/17 09:00 03/07/17 08:59 02/08/17 09:27 Ascorbic Acid (Vitamin C) 500 mg DAILY GT 02/05/17 09:00 03/07/17 08:59 02/08/17 09:25 Bisacodyl (Dulcolax) 10 mg PRN PRN ORAL Constipation 02/04/17 22:15 03/06/17 22:14 Carvedilol (Coreg) 3.125 mg TWICE A DAY GT 02/05/17 09:00 5/2/17 08:59 02/08/17 09:24 Dextrose (Dextrose 50%) STAT PRN IV Hypoglycemia 02/04/17 22:15 03/06/17 22:14 Digoxin (Lanoxin) 0.125 mg DAILY GT 02/05/17 09:00 03/07/17 08:59 02/08/17 09:25 Enoxaparin Sodium (Lovenox) 90 mg EVERY 12 HOURS SUBQ 02/05/17 09:00 03/07/17 08:59 02/08/17 09:27 Epoetin Ambrose (Procrit (for non ESRD use)) 10,000 units MON-MON-MON SUBQ 02/06/17 21:00 03/08/17 20:59 02/06/17 22:10 Ferrous Sulfate (Feosol) 330 mg THREE TIMES A DAY NG 02/05/17 09:00 03/07/17 08:59 02/08/17 12:07 Furosemide (Lasix) 20 mg TWICE A DAY GT 02/05/17 09:00 03/07/17 08:59 02/08/17 09:26 Insulin Aspart (NovoLOG) EVERY 6 HOURS SUBQ 02/05/17 00:00 03/07/17 00:00 02/08/17 12:09 Multivitamins (Multivitamins) 1 tab DAILY ORAL 02/05/17 09:00 03/07/17 08:59 02/08/17 09:25 Pantoprazole (Protonix) 40 mg DAILY IVP 02/06/17 09:00 03/08/17 08:59 02/08/17 09:27 Sucralfate (Carafate) 1 gm AC+HS GT 02/05/17 06:30 03/07/17 06:29 02/08/17 12:06 MARGARETH VALENTINE Feb 08, 2017 16:15
[2017-02-08 16:34] VITALS: BP 110/70
[2017-02-08] MEDS ORDERED: NS Irrig 1000ml ONE (18:17)
[2017-02-08 20:00] VITALS: BP 137/56
[2017-02-08] MEDS: Xarelto 15mg tab ORAL SCH (21:23)
[2017-02-08] MEDS: Epogen (for non ESRD use) SUBQ SCH (21:24)
[2017-02-09] VITALS: BP 103/60
[2017-02-09] MEDS: NovoLOG Insulin Flexpen SUBQ SCH ×3 (00:21→11:50)
[2017-02-09 04:00] VITALS: BP 138/70
[2017-02-09 05:10] LABS: MEAN CORPUSCULAR HEMOGLOBIN 30.5 PG (27.0-31.0); MEAN CORPUSCULAR HGB CONC 32.8 G/DL (32.0-36.0); MEAN CORPUSCULAR VOLUME 93 FL (80-99); MEAN PLATELET VOLUME 6.6 FL (6.5-10.1); PLATELET COUNT 136 K/UL (150-450); RED BLOOD COUNT 2.97 M/UL (4.70-6.10); RED CELL DISTRIBUTION WIDTH 15.6 % (11.6-14.8); WHITE BLOOD COUNT 9.7 K/UL (4.8-10.8)
[2017-02-09 05:33] LABS: ANION GAP 8 (5-15); CARBON DIOXIDE 33 mEQ/L (20-30); CHLORIDE 92 mEQ/L (98-107); CREATININE 0.4 mg/dL (0.7-1.2); HEMOLYSIS 3; POTASSIUM 3.5 mEQ/L (3.4-4.9); SODIUM 133 mEQ/L (135-145)
[2017-02-09] MEDS: Sucralfate 1gm tab GT SCH ×2 (06:12→11:43)
[2017-02-09] MEDS: Norco 5mg/325mg tab GT SCH ×3 (06:18→11:44)
--- NOTE | 2017-02-09 07:09 | General Progress Note ---
Assessment/Plan Problem List: (1) Ventilator dependent ICD Codes: Z99.11 - Dependence on respirator [ventilator] status SNOMED: 278079268 (2) Quadriplegia ICD Codes: G82.50 - Quadriplegia, unspecified SNOMED: 30655345, 47267747 (3) Pulmonary embolism ICD Codes: I26.99 - Other pulmonary embolism without acute cor pulmonale SNOMED: 36246520, 54203326 Status: stable Assessment/Plan wean fio2 resp rx vent suctioning as needed abx labs stable ok for dc from med standpoint Subjective ROS Limited/Unobtainable: No Constitutional: Reports: malaise, weakness HEENT: Reports: no symptoms Cardiovascular: Reports: no symptoms Respiratory: Reports: cough, sputum Gastrointestinal/Abdominal: Reports: no symptoms Genitourinary: Reports: no symptoms Neurologic/Psychiatric: Reports: pre-existing deficit Endocrine: Reports: no symptoms Hematologic/Lymphatic: Reports: anemia Allergies: Coded Allergies: No Known Allergies (Unverified , 02/04/17) All Systems: reviewed and negative except above Subjective intermittent desaturation. better than yesterday. on 40%. scant bleeding around the trach site. no hemoptysis. awake. Objective Last 24 Hour Vital Signs Date Time Temp Pulse Resp B/P Pulse Ox O2 Delivery O2 Flow Rate FiO2 02/09/17 04:55 69 17 40 02/09/17 04:00 40 02/09/17 03:48 66 02/09/17 02:57 71 20 40 02/09/17 01:13 71 20 40 02/09/17 00:00 40 02/09/17 00:00 98.4 78 23 103/60 92 Mechanical Ventilator 40 02/08/17 23:44 70 02/08/17 23:14 72 22 40 02/08/17 20:56 60 19 40 02/08/17 20:00 40 02/08/17 20:00 98.1 63 19 137/56 99 Room Air 02/08/17 19:47 60 02/08/17 18:55 64 19 40 02/08/17 17:35 62 112/70 02/08/17 17:20 60 20 40 02/08/17 16:34 97.9 71 18 110/70 99 Mechanical Ventilator 02/08/17 16:00 40 02/08/17 15:40 66 02/08/17 15:02 63 18 40 02/08/17 13:06 97.8 02/08/17 13:04 67 18 40 02/08/17 12:00 97.9 72 23 99/69 100 Mechanical Ventilator 60 02/08/17 12:00 66 02/08/17 12:00 10.0 60 02/08/17 11:05 67 20 60 02/08/17 09:25 65 02/08/17 09:24 65 109/72 02/08/17 08:54 66 20 80 02/08/17 08:00 64 02/08/17 08:00 98.6 65 22 109/72 100 Mechanical Ventilator 80 02/08/17 08:00 10.0 80 Intake and Output 02/08/17 02/09/17 19:00 07:00 Intake Total 900 ml 500 ml Output Total 225 ml 275 ml Balance 675 ml 225 ml Intake Free Water 400 ml 200 ml Tube Feeding 440 ml 240 ml Other 60 ml 60 ml Output Urine Total 225 ml 275 ml Laboratory Tests 02/08/17 08:00: White Blood Count 7.8, Red Blood Count 3.11L, Hemoglobin 9.3L, Hematocrit 28.7L , Mean Corpuscular Volume 92, Mean Corpuscular Hemoglobin 29.9, Mean Corpuscular Hemoglobin Concent 32.3, Red Cell Distribution Width 15.5H, Platelet Count 144L, Mean Platelet Volume 7.1, Neutrophils (%) (Auto) 83.7H, Lymphocytes (%) (Auto) 10.6L, Monocytes (%) (Auto) 4.5, Eosinophils (%) (Auto) 0.7, Basophils (%) (Auto) 0.5, Sodium Level 133L, Potassium Level 3.4, Chloride Level 89L, Carbon Dioxide Level 34H, Anion Gap 10, Blood Urea Nitrogen 14, Creatinine 0.4L, Estimat Glomerular Filtration Rate , Glucose Level 127H, Calcium Level 8.0L 02/08/17 08:21: Pro-B-Type Natriuretic Peptide 2502H 02/09/17 04:40: White Blood Count 9.7, Red Blood Count 2.97L, Hemoglobin 9.0L, Hematocrit 27.6L , Mean Corpuscular Volume 93, Mean Corpuscular Hemoglobin 30.5, Mean Corpuscular Hemoglobin Concent 32.8, Red Cell Distribution Width 15.6H, Platelet Count 136L, Mean Platelet Volume 6.6, Neutrophils (%) (Auto) , Lymphocytes (%) (Auto) , Monocytes (%) (Auto) , Eosinophils (%) (Auto) , Basophils (%) (Auto) , Sodium Level 133L, Potassium Level 3.5, Chloride Level 92L, Carbon Dioxide Level 33H, Anion Gap 8, Blood Urea Nitrogen 16, Creatinine 0.4L, Estimat Glomerular Filtration Rate , Glucose Level 105, Calcium Level 8.0L , Neutrophils % (Manual) [Pending], Lymphocytes % (Manual) [Pending], Platelet Estimate [Pending], Platelet Morphology [Pending] Height (Feet): 5 Height (Inches): 10.00 Weight (Pounds): 190 General Appearance: WD/WN, alert Neck: supple Cardiovascular: regular rhythm Respiratory/Chest: rhonchi - bilaterally Abdomen: normal bowel sounds, non tender, soft, no organomegaly, no mass Edema: no edema noted Arm (L), no edema noted Arm (R), no edema noted Leg (L), no edema noted Leg (R), no edema noted Pedal (L), no edema noted Pedal (R), no edema noted Generalized Neurologic: alert, responsive Skin: normal pigmentation KAPIL ALVARADO Feb 09, 2017 07:09
[2017-02-09 08:00] VITALS: BP 103/71
[2017-02-09] MEDS: Lacri-Lube Opth Oint 3.5gm BOTH EYES SCH (08:10)
[2017-02-09] MEDS: Ferrous Sulfate 300 MG/5 ML UDC NG SCH ×2 (08:11→13:02)
[2017-02-09] MEDS: Pantoprazole Inj IVP SCH (08:11)
[2017-02-09] MEDS: Ascorbic Acid 500mg tab GT SCH (08:12)
[2017-02-09] MEDS: Digoxin 0.125mg tab GT SCH (08:12)
[2017-02-09] MEDS: Xarelto 15mg tab ORAL SCH (08:12)
--- NOTE | 2017-02-09 08:12 | Pulmonology Progress Note ---
Assessment/Plan Assessment/Plan PE cardiomyopathy respiratory failure hypoxemia trach gt chronic encephalopathy anemia wound infection PLAN care as is shoulder xray likely chronic on Xarelto monitor for change follow up chest xr pending follow up [facility] term care anticoag needed dc today cipro added Subjective Allergies: Coded Allergies: No Known Allergies (Unverified , 02/04/17) Subjective improved on 40% and stable Objective Last 24 Hour Vital Signs Date Time Temp Pulse Resp B/P Pulse Ox O2 Delivery O2 Flow Rate FiO2 02/09/17 07:22 65 17 40 02/09/17 04:55 69 17 40 02/09/17 04:00 40 02/09/17 04:00 98.0 64 18 138/70 95 Mechanical Ventilator 40 02/09/17 04:00 98.0 64 18 138/70 95 Mechanical Ventilator 40 02/09/17 03:48 66 02/09/17 02:57 71 20 40 02/09/17 01:13 71 20 40 02/09/17 00:00 40 02/09/17 00:00 98.4 78 23 103/60 92 Mechanical Ventilator 40 02/08/17 23:44 70 02/08/17 23:14 72 22 40 02/08/17 20:56 60 19 40 02/08/17 20:00 40 02/08/17 20:00 98.1 63 19 137/56 99 Room Air 02/08/17 19:47 60 02/08/17 18:55 64 19 40 02/08/17 17:35 62 112/70 02/08/17 17:20 60 20 40 02/08/17 16:34 97.9 71 18 110/70 99 Mechanical Ventilator 02/08/17 16:00 40 02/08/17 15:40 66 02/08/17 15:02 63 18 40 02/08/17 13:06 97.8 02/08/17 13:04 67 18 40 02/08/17 12:00 97.9 72 23 99/69 100 Mechanical Ventilator 60 02/08/17 12:00 66 02/08/17 12:00 10.0 60 02/08/17 11:05 67 20 60 02/08/17 09:25 65 02/08/17 09:24 65 109/72 02/08/17 08:54 66 20 80 Intake and Output 02/08/17 02/09/17 18:59 06:59 Intake Total 900 ml 820 ml Output Total 225 ml 275 ml Balance 675 ml 545 ml Intake Free Water 400 ml 400 ml Tube Feeding 440 ml 360 ml Other 60 ml 60 ml Output Urine Total 225 ml 275 ml Objective WDWN NAD reduced breath sounds bilaterally without rhonchi or wheeze [id number] without MRG NABS nontender no HSM; GT no CC; minimal edema trach nonfocal Laboratory Tests 02/08/17 08:21: Pro-B-Type Natriuretic Peptide 2502H 02/09/17 04:40: White Blood Count 9.7, Red Blood Count 2.97L, Hemoglobin 9.0L, Hematocrit 27.6L , Mean Corpuscular Volume 93, Mean Corpuscular Hemoglobin 30.5, Mean Corpuscular Hemoglobin Concent 32.8, Red Cell Distribution Width 15.6H, Platelet Count 136L, Mean Platelet Volume 6.6, Neutrophils (%) (Auto) , Lymphocytes (%) (Auto) , Monocytes (%) (Auto) , Eosinophils (%) (Auto) , Basophils (%) (Auto) , Neutrophils % (Manual) [Pending], Lymphocytes % (Manual) [Pending], Platelet Estimate [Pending], Platelet Morphology [Pending], Sodium Level 133L, Potassium Level 3.5, Chloride Level 92L, Carbon Dioxide Level 33H, Anion Gap 8, Blood Urea Nitrogen 16, Creatinine 0.4L, Estimat Glomerular Filtration Rate , Glucose Level 105, Calcium Level 8.0L Current Medications Medications (Trade) Dose Ordered Sig/Kiet Route PRN Reason Start Time Stop Time Status Last Admin Dose Admin Acetaminophen (Tylenol) 325 mg Q6H PRN ORAL For Pain 02/04/17 22:15 03/06/17 22:14 02/08/17 04:02 Acetaminophen/ Hydrocodone Bitart ([place] 5/325) 1 tab Q6H GT 02/05/17 00:00 02/12/17 00:00 02/09/17 06:18 Artificial Tears (Lacri-Lube) 1 applic EVERY 12 HOURS BOTH EYES 02/05/17 09:00 03/07/17 08:59 02/08/17 21:24 Ascorbic Acid (Vitamin C) 500 mg DAILY GT 02/05/17 09:00 03/07/17 08:59 02/08/17 09:25 Bisacodyl (Dulcolax) 10 mg PRN PRN ORAL Constipation 02/04/17 22:15 03/06/17 22:14 02/08/17 16:19 Carvedilol (Coreg) 3.125 mg TWICE A DAY GT 02/05/17 09:00 03/07/17 08:59 02/08/17 17:35 Dextrose (Dextrose 50%) STAT PRN IV Hypoglycemia 02/04/17 22:15 03/06/17 22:14 Digoxin (Lanoxin) 0.125 mg DAILY GT 02/05/17 09:00 03/07/17 08:59 02/08/17 09:25 Epoetin Ambrose (Procrit (for non ESRD use)) 10,000 units MON- SUBQ 02/06/17 21:00 03/08/17 20:59 02/08/17 21:24 Ferrous Sulfate (Feosol) 330 mg THREE TIMES A DAY NG 02/05/17 09:00 03/07/17 08:59 02/08/17 17:34 Furosemide (Lasix) 20 mg TWICE A DAY GT 02/05/17 09:00 03/07/17 08:59 02/08/17 17:34 Insulin Aspart (NovoLOG) EVERY 6 HOURS SUBQ 02/05/17 00:00 03/07/17 00:00 02/09/17 06:13 Multivitamins (Multivitamins) 1 tab DAILY ORAL 02/05/17 09:00 03/07/17 08:59 02/08/17 09:25 Pantoprazole (Protonix) 40 mg DAILY IVP 02/06/17 09:00 03/08/17 08:59 02/08/17 09:27 Rivaroxaban (Xarelto) 15 mg Q12HR ORAL 02/08/17 21:00 03/10/17 20:59 02/08/17 21:23 Sucralfate (Carafate) 1 gm AC+HS GT 02/05/17 06:30 03/07/17 06:29 02/09/17 06:12 MARGARETH VALENTINE Feb 09, 2017 08:12
[2017-02-09] MEDS ORDERED: Ciprofloxacin 500mg tab ORAL SCH (09:00)
[2017-02-09 09:30] LABS: LYMPHOCYTES % (MANUAL) 5 % (20-45); NEUTROPHILS % (MANUAL) 93 % (45-75); TOTAL CELLS COUNTED 100
[2017-02-09 09:31] LABS: ANISOCYTOSIS 1+; BAND NEUTROPHILS % (MANUAL) 0 % (0-8); BASOPHILS % (MANUAL) 0 % (0-2); EOSINOPHILS % (MANUAL) 0 % (0-3); HYPOCHROMASIA 1+; PLATELET ESTIMATE DECREASED; PLATELET MORPHOLOGY NORMAL
--- NOTE | 2017-02-09 10:55 | Diagnostic Imaging Report ---
Indication: SOB Technique: One view of the chest Comparison: 02/06/2017 Findings: Patient is rotated to the right. There is increased opacity of the right lung base, probably increasing large right pleural effusion, right lower lobe atelectasis is also a possibility. The heart is enlarged. There is marked improvement of previously demonstrated left retrocardiac opacity. There is a small pleural effusion still present on the left. Left chest unifocal pacemaker, tracheostomy remain Impression: Increased right basilar opacity, most likely large right pleural effusion, atelectasis also a possibility, three-phase Improving left basilar parenchymal disease. Residual small left pleural effusion Cardiomegaly
[2017-02-09 12:00] VITALS: BP_SYST 103; BP_SYST 113; BP_DIAS 71
--- NOTE | 2017-02-09 19:26 | Cardiology Report ---
APPROVED REPORT EXAM: Two-dimensional and M-mode echocardiogram with Doppler and color Doppler. INDICATION Shortness of Breath M-Mode DIMENSIONS IVSd1.3 (0.7-1.1cm)Left Atrium (MM)3.2 (1.6-4.0cm) LVDd4.8 (3.5-5.6cm)Aortic Root3.1 (2.0-3.7cm) PWd1.8 (0.7-1.1cm)Aortic Cusp Exc.1.7 (1.5-2.0cm) LVDs3.9 (2.5-4.0cm) PWs2.2 cm Technically difficult study due to poor acoustic windows. Study quality precludes accurate assessment of regional wall motion to extent visualized. Normal left ventricular chamber size. Basal to mid septal wall akinesia with over left ventricular ejection fraction estimated to be 40-45%. Mild left ventricular hypertrophy. Anterior Echo-free space, may be due to pericardial fat or effusion. All other cardiac chamber sizes are within normal limits. Mild focal aortic valve sclerosis with adequate cusp excursion. Mildly thickened mitral valve leaflets with normal excursion. Mild mitral annulus and aortic root calcification. Pulmonic valve not well visualized. Normal tricuspid valve structure. A color flow and spectral Doppler study was performed and revealed: No aortic regurgitation. Severe mitral regurgitation. Mitral diastolic velocities suggest reduced left ventricular relaxation (Grade I). Trace tricuspid regurgitation. Tricuspid systolic velocities suggests peak right ventricular systolic pressure of 26 mmHg. No pulmonic regurgitation present.
--- NOTE | 2017-02-10 17:12 | Discharge Summary ---
Discharge Summary Hospital Course Date of Admission Feb 04, 2017 at 19:18 Date of Discharge Feb 09, 2017 at 15:45 Admitting Diagnosis desaturation, vent dependent HPI Padmini Martinez is a 72 year old male who was admitted on Feb 04, 2017 at 19:18 for Desaturation,Vent Dependent Hospital Course [id number] Discharge Discharge Disposition Patient was discharged to SNF/Subacute Facility(03) Discharge Diagnoses: Zina Dior NP Feb 10, 2017 17:12
--- NOTE | 2017-02-11 01:48 | Discharge Summary 2 SIG ---
DATE OF ADMISSION: 02/04/2017 DATE OF DISCHARGE: 02/09/2017 COMPUTER APPLICATIONS INSTRUCTOR: Praveen Gold M.D. BRIEF HOSPITAL COURSE: The patient is a 72-year-old male, who presented to ED for dyspnea and respiratory distress with increased desaturation from the long term. The patient had recently been hospitalized at another facility and was sent to a long term. 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 On evaluation at ED, the patient had ABG with relatively hypoxia. CT of the chest showed bilateral subsegmental pulmonary embolism. The patient was given Lovenox and was admitted for further care. He was given pulmonary support. Shoulder x-ray showed inferior subluxation of the right shoulder without subluxation or fracture. Echocardiogram showed basal to mid septal wall akinesia with left ventricular ejection fraction 40% to 45%. He came in with a sacrococcygeal stage IV/unstageable pressure ulcer and a left ischial tuberosity stage III pressure ulcer. Chest x-ray showed increased right basilar opacity. Ciprofloxacin was added to the patient's regimen and the patient was discharged to [facility]. FINAL DIAGNOSES: 1. Acute pulmonary embolism. 2. Acute on chronic respiratory failure. 3. Cardiomyopathy. 4. Tracheostomy status. 5. Gastrostomy tube. 6. Chronic encephalopathy. 7. Anemia. 8. Sacrococcygeal stage IV/unstageable pressure ulcer and left ischial tuberosity stage III pressure ulcer, present on admission. 9. Functional quadriplegia. [place] Charles M.D. I have been assigned to dictate discharge summary on this account and I was not involved in the patient's management. Zina Dior N.P. DR: KELVIN JOB#: [id number] CC: TAYLOR
== END 2017-02-09 15:45 | DRG 207 ==
LOC: EDBD 17:58 → EMR 18:29 → EDBEDREQ 19:11 → 2W 19:18 → EDBEDREQ 21:04
PROC: 5A1955Z Respiratory Ventilation, Greater than 96 Consecutive Hours (ICD-10-PCS; principal; 2017-02-04)
DX: I26.99 Other pulmonary embolism without acute cor pulmonale (principal); G93.40 Encephalopathy, unspecified; L89.154 Pressure ulcer of sacral region, stage 4; I42.9 Cardiomyopathy, unspecified; D69.6 Thrombocytopenia, unspecified; J96.20 Acute and chronic respiratory failure, unspecified whether with hypoxia or hypercapnia; R53.2 Functional quadriplegia; L89.323 Pressure ulcer of left buttock, stage 3; Z43.1 Encounter for attention to gastrostomy; Z99.11 Dependence on respirator [ventilator] status; S14.109S Unspecified injury at unspecified level of cervical spinal cord, sequela; D64.9 Anemia, unspecified; Z43.0 Encounter for attention to tracheostomy; V89.2XXS Person injured in unspecified motor-vehicle accident, traffic, sequela
CPT/HCPCS: 36415; 36600; 71010; 71275; 80048; 80053; 81003; 82550; 82553; 82803; 82962; 83605; 83880; 84484; 85007; 85025; 87040; 87070; 87181; 87205; 93005; 93306; 94002; 94003; J1815

== ENCOUNTER 2017-03-03 22:39 | Inpatient (IN) | payer MEDICARE ==
[~2017-03-03] VITALS: Ht 185.4 cm; Wt 83.9 kg
[~2017-03-03 22:39] MED LIST: ACETAMINOPHEN325 M1 GT; BENEPROTEIN1 EACH GT; BISACODYL5 MG RECTAL; CARAFATE1 G1 GT; CARVEDILOL3.125 MG GT; DIGOXIN125 MCG GT; DOCUSATE SODIU100 MG ORAL; EPOGEN10000 UNIT SUBQ; FERROUS SU220 MG/53 GT; FUROSEMIDE20 M1 GT; GLUCAGON EMERGEN1 MG IM; INVANZ1 GM IV; LUBRICANT EYE1 EACH BOTH EYES; MAGNESIUM200 M1 GT; MULTI-DELYN237 ML GT; NORCO 5-325 TA1 EAC1 GT; NOVOLIN R100 UNIT/1 SUBQ; PROTONIX40 MG GT; VITAMIN C500 M1 GT
[2017-03-03 23:22] LABS: MEAN CORPUSCULAR HEMOGLOBIN 32.3 PG (27.0-31.0); MEAN CORPUSCULAR HGB CONC 33.1 G/DL (32.0-36.0); MEAN CORPUSCULAR VOLUME 98 FL (80-99); MEAN PLATELET VOLUME 5.9 FL (6.5-10.1); PLATELET COUNT 179 K/UL (150-450); RED BLOOD COUNT 2.92 M/UL (4.70-6.10); RED CELL DISTRIBUTION WIDTH 17.3 % (11.6-14.8); WHITE BLOOD COUNT 12.9 K/UL (4.8-10.8)
[2017-03-03 23:33] LABS: TROPONIN I < 0.30 ng/mL (<=0.30)
[2017-03-03 23:37] LABS: ALANINE AMINOTRANSFERASE 18 U/L (3-41); ALBUMIN/GLOBULIN RATIO 0.7 (1.0-2.7); ANION GAP 5 (5-15); ASPARTATE AMINO TRANSFERASE 25 U/L (5-40); CALCIUM 8.7 mg/dL (8.6-10.2); CARBON DIOXIDE 40 mEQ/L (20-30); CHLORIDE 87 mEQ/L (98-107); CREATININE 0.4 mg/dL (0.7-1.2); HEMOLYSIS 3; LIPASE 42 U/L (< 60); POTASSIUM 4.6 mEQ/L (3.4-4.9); SODIUM 132 mEQ/L (135-145); TOTAL PROTEIN 6.5 g/dL (6.6-8.7)
--- NOTE | 2017-03-03 23:40 | Emergency Room Report ---
History of Present Illness General Chief Complaint: Dyspnea/Respdistress Source: Medical Record Present Illness HPI Patient sent from nursing facility with complaints of shortness of breath Patient has been on tracheostomy reportedly desaturated to 80% Patient himself is nonverbal cannot provide any history This does limit the history of present illness No obvious reports of vomiting or diarrhea unknown regarding fevers Allergies: Coded Allergies: No Known Allergies (Unverified , 02/04/17) Patient History Limited by: medical condition Past Medical History: see triage record Pertinent Family History: unable to obtain Reviewed Nursing Documentation: PMH: Agreed, PSxH: Agreed Nursing Documentation-PMH Past Medical History: No History, Except For Hx Cardiac Problems: Yes - HF, A-FIB, BRADYCARDIA, THROMBOCYTPENIA Hx Hypertension: Yes Hx COPD: Yes - PNEUMONIA Hx Diabetes: Yes Hx Cancer: No Hx Neurological Problems: No Review of Systems All Other Systems: limited - Other than the ones mentioned in the history of present illness all others are reviewed however they do stay limited due to the patient's mental status Physical Exam Vital Signs Date Time Temp Pulse Resp B/P Pulse Ox O2 Delivery O2 Flow Rate FiO2 03/03/17 22:37 98.8 84 17 132/74 100 Mechanical Ventilator 15.0 03/03/17 22:40 40 Sp02 EP Interpretation: reviewed, normal General Appearance: no apparent distress Head: normocephalic, atraumatic Eyes: bilateral eye EOMI, bilateral eye PERRL ENT: hearing grossly normal, normal pharynx, TMs + canals normal, uvula midline Neck: supple, no meningismus, no bony tend, other - tracheostomy in place Respiratory: lungs clear, normal breath sounds, no rhonchi, no respiratory distress, no retraction, no accessory muscle use Cardiovascular #1: normal peripheral pulses, regular rate, rhythm, no edema, no gallop, no JVD, no murmur Gastrointestinal: normal bowel sounds, non tender, soft, no mass, no organomegaly, non-distended, no guarding, no hernia, no pulsatile mass, no rebound Genitourinary: no CVA tenderness Musculoskeletal: other - Patient chronically debilitated, difficult evaluation Neurologic: sensory intact, other - Responsive to physical stimuli Psychiatric: mood/affect normal Skin: other - Both lower extremities in stockings and compression dressings, significant abnormalities Lymphatic: no adenopathy Medical Decision Making Diagnostic Impression: Primary Impression: Pneumonia Additional Impressions: Hypoxia UTI (urinary tract infection) ER Course Patient is a fairly complex patient with multiple differential to consideration including but not limited to cardiac cardiopulmonary and vascular emergencies Patient's x-ray today reveals markings in the left lower lobe there were not present on previous x-ray Patient remains otherwise appropriate with oxygenation her Thoughts patient antibiotics initiated and patient admitted for further care Labs Test 03/03/17 22:50 03/04/17 00:00 White Blood Count 12.9 K/UL (4.8-10.8) Red Blood Count 2.92 M/UL (4.70-6.10) Hemoglobin 9.4 G/DL (14.2-18.0) Hematocrit 28.5 % (42.0-52.0) Mean Corpuscular Volume 98 FL (80-99) Mean Corpuscular Hemoglobin 32.3 PG (27.0-31.0) Mean Corpuscular Hemoglobin Concent 33.1 G/DL (32.0-36.0) Red Cell Distribution Width 17.3 % (11.6-14.8) Platelet Count 179 K/UL (150-450) Mean Platelet Volume 5.9 FL (6.5-10.1) Neutrophils (%) (Auto) % (45.0-75.0) Lymphocytes (%) (Auto) % (20.0-45.0) Monocytes (%) (Auto) % (1.0-10.0) Eosinophils (%) (Auto) % (0.0-3.0) Basophils (%) (Auto) % (0.0-2.0) Differential Total Cells Counted 100 Neutrophils % (Manual) 86 % (45-75) Lymphocytes % (Manual) 5 % (20-45) Monocytes % (Manual) 1 % (1-10) Eosinophils % (Manual) 0 % (0-3) Basophils % (Manual) 1 % (0-2) Band Neutrophils 7 % (0-8) Platelet Estimate Adequate Platelet Morphology Normal Red Blood Cell Morphology Normal Sodium Level 132 mEQ/L (135-145) Potassium Level 4.6 mEQ/L (3.4-4.9) Chloride Level 87 mEQ/L (98-107) Carbon Dioxide Level 40 mEQ/L (20-30) Anion Gap 5 (5-15) Blood Urea Nitrogen 20 mg/dL (7-23) Creatinine 0.4 mg/dL (0.7-1.2) Estimat Glomerular Filtration Rate mL/min (>60) Glucose Level 143 mg/dL (74-106) Lactic Acid Level 0.70 mmol/L (0.66-2.22) Calcium Level 8.7 mg/dL (8.6-10.2) Total Bilirubin 0.6 mg/dL (0.0-1.2) Aspartate Amino Transf (AST/SGOT) 25 U/L (5-40) Alanine Aminotransferase (ALT/SGPT) 18 U/L (3-41) Alkaline Phosphatase 100 U/L (40-129) Total Creatine Kinase 25 U/L (38-174) Creatine Kinase MB 1.7 ng/mL (< 6.7) Creatine Kinase MB Relative Index 6.8 Troponin I < 0.30 ng/mL (<=0.30) Total Protein 6.5 g/dL (6.6-8.7) Albumin 2.8 g/dL (3.5-5.2) Globulin 3.7 g/dL Albumin/Globulin Ratio 0.7 (1.0-2.7) Lipase 42 U/L (< 60) Urine Color Yellow Urine Appearance Cloudy Urine pH 8 (4.5-8.0) Urine Specific [place] 1.015 (1.005-1.035) Urine Protein 3+ (NEGATIVE) Urine Glucose (UA) Negative (NEGATIVE) Urine Ketones 1+ (NEGATIVE) Urine Occult Blood 5+ (NEGATIVE) Urine Nitrite Positive (NEGATIVE) Urine Bilirubin Negative (NEGATIVE) Urine Urobilinogen 8 MG/DL (0.0-1.0) Urine Leukocyte Esterase 3+ (NEGATIVE) Urine RBC 40-60 /HPF (0 - 0) Urine WBC Tntc /HPF (0 - 0) Urine Squamous Epithelial Cells None /LPF (NONE/OCC) Urine Triple Phosphate Crystals Few /LPF (NONE) Urine Bacteria Many /HPF (NONE) Rhythm Strip Diag. Results EP Interpretation: yes Rate: 88 Rhythm: NSR, no PVC's, no ectopy Chest X-Ray Diagnostic Results EP Interpretation: Yes Findings: no effusion, no pneumothorax, other - Large right-sided effusion similar to previous, left lower lobe markings new compared to previous Number of Views: 1 Last Vital Signs Date Time Temp Pulse Resp B/P Pulse Ox O2 Delivery O2 Flow Rate FiO2 4/28/17 22:50 105 20 40 03/03/17 22:40 Mechanical Ventilator 15.0 03/03/17 22:37 98.8 132/74 100 Status: improved Disposition: ADMITTED INPATIENT Condition: Serious FREDDIE ESTRELLA D.O. Mar 03, 2017 23:40
[2017-03-03 23:47] LABS: CKMB 1.7 ng/mL (< 6.7)
[2017-03-04] VITALS (8 sets, daily range): BP systolic 116–157; BP diastolic 68–87
[2017-03-04] MEDS ORDERED: Piperacillin/Tazobactam 3.375 GM in NS 110 ML IVPB ONE ×2
[2017-03-04] MEDS ORDERED: Tubing IV Cassette IV ONE (00:02)
[2017-03-04] MEDS ORDERED: NS 55 ML IV ONE (00:02)
[2017-03-04] MEDS ORDERED: Zosyn 3.375gm inj ONE (00:02)
[2017-03-04 00:39] LABS: BAND NEUTROPHILS % (MANUAL) 7 % (0-8); BASOPHILS % (MANUAL) 1 % (0-2); EOSINOPHILS % (MANUAL) 0 % (0-3); LYMPHOCYTES % (MANUAL) 5 % (20-45); NEUTROPHILS % (MANUAL) 86 % (45-75); PLATELET ESTIMATE ADEQUATE; PLATELET MORPHOLOGY NORMAL; TOTAL CELLS COUNTED 100
[2017-03-04] MEDS ORDERED: ARTIFICIAL TEAR15 ML BOTH EYES (00:52)
[2017-03-04] MEDS ORDERED: NORCO 5-325 TA1 EACH GT (00:52)
[2017-03-04] MEDS ORDERED: SIMETHICONE80 MG GT (00:54)
[2017-03-04] MEDS ORDERED: AMIKACIN S1000 MG/4 IJ (00:54)
[2017-03-04 01:08] LABS: APPEARANCE,URINE CLOUDY; KETONES,URINE 1+ (NEGATIVE); LEUKOCYTE ESTERASE ,URINE 3+ (NEGATIVE); NITRITE,URINE POSITIVE (NEGATIVE); PH,URINE 8 (4.5-8.0); PROTEIN,URINE 3+ (NEGATIVE); UROBILINOGEN,URINE 8 MG/DL (0.0-1.0)
[2017-03-04 01:40] LABS: RBC,URINE 40-60 /HPF (0 - 0); WBC,URINE TNTC /HPF (0 - 0)
[2017-03-04 01:41] LABS: BACTERIA,URINE MANY /HPF; TRIPLE PHOSPHATE CRYSTAL,UR FEW /LPF
[2017-03-04] MEDS ORDERED: Bisacodyl EC 5mg tab ORAL PRN (07:15)
[2017-03-04] MEDS ORDERED: Artificial Tears 1.4% Op Soln BOTH EYES SCH (07:15)
[2017-03-04] MEDS ORDERED: Artificial Tears 1.4% Op Soln BOTH EYES PRN (08:15)
[2017-03-04] MEDS ORDERED: Vancomycin 1.5 GM in D5W 325 ML IVPB ONE (09:00)
[2017-03-04] MEDS: Ascorbic Acid 500mg tab GT SCH (09:01)
[2017-03-04] MEDS: Digoxin 0.125mg tab GT SCH (09:01)
[2017-03-04 09:23] LABS: MEAN CORPUSCULAR HEMOGLOBIN 29.5 PG (27.0-31.0); MEAN CORPUSCULAR VOLUME 95 FL (80-99); MEAN PLATELET VOLUME 6.6 FL (6.5-10.1); PLATELET COUNT 185 K/UL (150-450); RED BLOOD COUNT 3.17 M/UL (4.70-6.10); RED CELL DISTRIBUTION WIDTH 17.3 % (11.6-14.8); WHITE BLOOD COUNT 12.1 K/UL (4.8-10.8)
[2017-03-04 09:59] LABS: ANION GAP 8 (5-15); CALCIUM 8.6 mg/dL (8.6-10.2); CARBON DIOXIDE 37 mEQ/L (20-30); CHLORIDE 89 mEQ/L (98-107); CREATININE 0.4 mg/dL (0.7-1.2); HEMOLYSIS 6; POTASSIUM 3.9 mEQ/L (3.4-4.9); SODIUM 134 mEQ/L (135-145)
--- NOTE | 2017-03-04 10:08 | Diagnostic Imaging Report ---
Indication: Chest pain Technique: One view of the chest Comparison: 02/08/2017 Findings: There is increased opacity in the left lung base, likely reflecting increased pleural fluid, probably some associated atelectasis and possibly consolidation. Large right pleural effusion persists. There is increasing interstitial and alveolar congestive changes in the right lung. The heart is massively enlarged. Tracheostomy remains. Left chest unifocal pacemaker is again demonstrated Impression: New finding of moderate left pleural effusion and likely underlying parenchymal atelectasis and consolidation, since 02/08/2017 Persistent large right pleural effusion Increasing right lung parenchymal disease This agrees with the preliminary interpretation provided by the emergency room physician
--- NOTE | 2017-03-04 10:53 | Diagnostic Imaging Report ---
Indication: SOB Technique: One view of the chest Comparison: 03/03/2017 Findings: Better inspiration on the current exam. There is elevation of the right hemidiaphragm again demonstrated. There appears to be decreased pleural fluid bilaterally. Decreased parenchymal opacity is seen on the right The heart remains enlarged. Left chest pacemaker, tracheostomy are again demonstrated. Impression: Decreased bilateral pleural effusions, over one day Apparent decreased right lung parenchymal opacity, may be an artifact of improved inspiration on the current exam Other stable findings as described
[2017-03-04 11:07] LABS: TOTAL CELLS COUNTED 100
[2017-03-04 11:08] LABS: ANISOCYTOSIS 1+; BAND NEUTROPHILS % (MANUAL) 0 % (0-8); BASOPHILS % (MANUAL) 0 % (0-2); EOSINOPHILS % (MANUAL) 1 % (0-3); LYMPHOCYTES % (MANUAL) 10 % (20-45); NEUTROPHILS % (MANUAL) 85 % (45-75); PLATELET ESTIMATE ADEQUATE; PLATELET MORPHOLOGY NORMAL
[2017-03-04 11:09] LABS: MICROCYTES OCCASIONAL
[2017-03-04] MEDS ORDERED: NovoLOG Insulin Flexpen SUBQ SCH (11:50)
[2017-03-04] MEDS: Sucralfate 1gm tab GT SCH ×3 (11:57→20:54)
[2017-03-04] MEDS: Piperacillin/Tazobactam 3.375 GM in D5W 110 ML IVPB SCH ×2 (11:57→20:54)
--- NOTE | 2017-03-04 11:58 | History and Physical Report ---
DATE OF ADMISSION: 03/03/2017 CHIEF COMPLAINT: Shortness of breath and pneumonia. HISTORY OF PRESENT ILLNESS: The patient is a 72-year-old male. He has a history of chronic respiratory failure, spinal cord injury, anemia, and CHF. He presented from a assisted facility with hypoxemia and shortness of breath. The patient is a poor historian. history of a subacute. The patient then was short of breath and hypoxic with saturation in the 80s. The patient was suctioned, received breathing treatments, but did not improve. On evaluation in the emergency room, the patient had x-ray, evidence of pneumonia. He has been pancultured and started on broad-spectrum antibiotics and now admitted for further evaluation and care. PAST MEDICAL HISTORY: As above. PAST SURGICAL HISTORY: Includes a prior history of trach and a G-tube and history of ACDF of the cervical spine. MEDICATIONS: Current medications reconciled and reviewed. ALLERGIES: None. SOCIAL HISTORY: Negative for tobacco, ethanol, or drugs. FAMILY HISTORY: None. REVIEW OF SYSTEMS: Unobtainable as the patient is confused. PHYSICAL EXAMINATION: VITAL SIGNS: Temperature 97.4 degrees, pulse 72, respirations 16, and blood pressure 132/78. GENERAL: The patient is a thin, chronically ill-appearing male, in no apparent distress. HEART: Regular rate and rhythm. LUNGS: Significant scattered rhonchi . ABDOMEN: Soft, nontender, and nondistended. EXTREMITIES: Without clubbing or cyanosis. There is a stage IV sacral wound noted. LABORATORY AND DIAGNOSTIC DATA: White count 70085, hemoglobin 9.4, hematocrit 28, and platelets of 179,000. Sodium 132, potassium 4.6, and creatinine was 0.4. UA showed too numerous count WBCs. X-ray showed evidence of pneumonia. ASSESSMENT: This is an unfortunate male with, 1. History of chronic respiratory failure. 2. History of spinal cord injury. 3. Congestive heart failure. 4. Sacral wound admitted with pneumonia pneumonia 5. Sepsis. 6. Urinary tract infection. 7. Functional quadriplegia. 8. History of congestive heart failure. PLAN: IV antibiotics. Followup cultures. Vent support respiratory treatments. Continue G-tube feeds. Continue local wound care. Praveen Gold M.D. DR: Bharat JOB#: [id number] CC:
[2017-03-04] MEDS: NovoLOG Insulin Flexpen SUBQ SCH ×3 (12:01→21:05)
--- NOTE | 2017-03-04 16:38 | Pulmonology Progress Note ---
Assessment/Plan Assessment/Plan 1. Chronic respiratory failure. 2. History of spinal cord injury. 3. Congestive heart failure. 4. Pneumonia 5. Sepsis. 6. Urinary tract infection. 7. Functional quadriplegia. 8. PE PLAN IV anibiotics respiratory care oxgyen nutrition wound care ID evaluation stabilize ventilatory support as is Subjective ROS Limited/Unobtainable: Yes Allergies: Coded Allergies: No Known Allergies (Unverified , 02/04/17) Subjective care noted events noted readmitted for pneumonia Objective Last 24 Hour Vital Signs Date Time Temp Pulse Resp B/P Pulse Ox O2 Delivery O2 Flow Rate FiO2 03/04/17 16:00 40 03/04/17 14:44 104 22 40 03/04/17 13:26 71 20 40 03/04/17 12:00 70 03/04/17 12:00 99.9 76 19 116/68 100 Mechanical Ventilator 40 03/04/17 12:00 40 03/04/17 11:14 75 20 40 03/04/17 09:06 78 21 40 03/04/17 09:01 91 03/04/17 09:01 91 151/84 03/04/17 08:00 98.1 91 20 151/87 100 Mechanical Ventilator 40 03/04/17 08:00 40 03/04/17 08:00 79 03/04/17 06:56 99 29 40 03/04/17 04:51 72 19 40 03/04/17 04:00 40 03/04/17 04:00 97.4 72 16 132/78 98 Mechanical Ventilator 40 03/04/17 04:00 83 03/04/17 02:45 99.8 84 16 136/80 98 Mechanical Ventilator 40 03/04/17 02:42 63 18 40 03/04/17 02:37 99.6 78 21 120/70 100 Mechanical Ventilator 15.0 40 03/04/17 02:00 101.7 78 14 130/71 100 Mechanical Ventilator 40 03/04/17 00:51 74 21 40 03/04/17 00:16 99.6 93 14 120/70 100 Mechanical Ventilator 40 03/03/17 22:50 105 20 40 03/03/17 22:40 84 17 Mechanical Ventilator 15.0 03/03/17 22:40 40 03/03/17 22:37 98.8 84 17 132/74 100 Mechanical Ventilator 15.0 Intake and Output 03/03/17 03/04/17 19:00 07:00 Intake Total 110 ml Output Total 200 ml Balance -90 ml Intake IV Total 110 ml Output Urine Total 200 ml # Bowel Movements 2 Objective GENERAL: The patient is a thin, chronically ill-appearing male, in no apparent distress. HEART: Regular rate and rhythm. LUNGS: scattered rhonchi . ABDOMEN: Soft, nontender, and nondistended. EXTREMITIES: Without clubbing or cyanosis. skin: stage IV sacral wound noted. Laboratory Tests 03/03/17 22:50: White Blood Count 12.9H, Red Blood Count 2.92L, Hemoglobin 9.4L, Hematocrit 28.5L, Mean Corpuscular Volume 98, Mean Corpuscular Hemoglobin 32.3H, Mean Corpuscular Hemoglobin Concent 33.1, Red Cell Distribution Width 17.3H, Platelet Count 179, Mean Platelet Volume 5.9L, Neutrophils (%) (Auto) , Lymphocytes (%) (Auto) , Monocytes (%) (Auto) , Eosinophils (%) (Auto) , Basophils (%) (Auto) , Differential Total Cells Counted 100, Neutrophils % ( Manual) 86H, Lymphocytes % (Manual) 5L, Monocytes % (Manual) 1, Eosinophils % ( Manual) 0, Basophils % (Manual) 1, Band Neutrophils 7, Platelet Estimate Adequate, Platelet Morphology Normal, Red Blood Cell Morphology Normal, Sodium Level 132L, Potassium Level 4.6, Chloride Level 87L, Carbon Dioxide Level 40H, Anion Gap 5, Blood Urea Nitrogen 20, Creatinine 0.4L, Estimat Glomerular Filtration Rate , Glucose Level 143H, Lactic Acid Level 0.70, Calcium Level 8.7 , Total Bilirubin 0.6, Aspartate Amino Transf (AST/SGOT) 25, Alanine Aminotransferase (ALT/SGPT) 18, Alkaline Phosphatase 100, Total Creatine Kinase 25L, Creatine Kinase MB 1.7, Creatine Kinase MB Relative Index 6.8, Troponin I < 0.30, Total Protein 6.5L, Albumin 2.8L, Globulin 3.7, Albumin/Globulin Ratio 0.7L, Lipase 42 03/04/17 00:00: Urine Color Yellow, Urine Appearance Cloudy, Urine pH 8, Urine Specific [place] 1.015, Urine Protein 3+H, Urine Glucose (UA) Negative, Urine Ketones 1+H, Urine Occult Blood 5+H, Urine Nitrite PositiveH, Urine Bilirubin Negative, Urine Urobilinogen 8H, Urine Leukocyte Esterase 3+H, Urine RBC 40-60H, Urine WBC TntcH , Urine Squamous Epithelial Cells None, Urine Triple Phosphate Crystals FewH, Urine Bacteria ManyH 03/04/17 07:45: White Blood Count 12.1H, Red Blood Count 3.17L, Hemoglobin 9.4L, Hematocrit 30.2L, Mean Corpuscular Volume 95, Mean Corpuscular Hemoglobin 29.5, Mean Corpuscular Hemoglobin Concent 31.0L, Red Cell Distribution Width 17.3H, Platelet Count 185, Mean Platelet Volume 6.6, Neutrophils (%) (Auto) , Lymphocytes (%) (Auto) , Monocytes (%) (Auto) , Eosinophils (%) (Auto) , Basophils (%) (Auto) , Differential Total Cells Counted 100, Neutrophils % ( Manual) 85H, Lymphocytes % (Manual) 10L, Monocytes % (Manual) 4, Eosinophils % ( Manual) 1, Basophils % (Manual) 0, Band Neutrophils 0, Platelet Estimate Adequate, Platelet Morphology Normal, Sodium Level 134L, Potassium Level 3.9, Chloride Level 89L, Carbon Dioxide Level 37H, Anion Gap 8, Blood Urea Nitrogen 19, Creatinine 0.4L, Estimat Glomerular Filtration Rate , Glucose Level 91, Calcium Level 8.6, Anisocytosis 1+, Microcytosis Occasional, Hemoglobin A1c 5.2 Current Medications Medications (Trade) Dose Ordered Sig/Kiet Route PRN Reason Start Time Stop Time Status Last Admin Dose Admin Acetaminophen (Tylenol) 325 mg Q6H PRN ORAL For Pain 03/04/17 07:15 04/03/17 07:14 Acetaminophen (Tylenol) 650 mg Q6H PRN ORAL Mild Pain/Temp > 100.5 03/04/17 02:30 04/03/17 02:29 03/04/17 02:34 Artificial Tears (Akwa-Tears) 1 drop Q12H PRN BOTH EYES Dry Eyes 03/04/17 08:15 04/03/17 07:14 Ascorbic Acid (Vitamin C) 500 mg DAILY GT 03/04/17 09:00 04/03/17 08:59 03/04/17 09:01 Bisacodyl (Dulcolax) 10 mg DAILY PRN RECTAL Constipation 03/04/17 08:15 04/03/17 08:14 Carvedilol (Coreg) 3.125 mg TWICE A DAY GT 03/04/17 09:00 04/03/17 08:59 03/04/17 09:01 Dextrose (Dextrose 50%) STAT PRN IV Hypoglycemia 03/04/17 07:15 04/03/17 07:14 Digoxin (Lanoxin) 0.125 mg DAILY GT 03/04/17 09:00 04/03/17 08:59 03/04/17 09:01 Furosemide (Lasix) 20 mg TWICE A DAY GT 03/04/17 09:00 04/03/17 08:59 03/04/17 09:01 Insulin Aspart (NovoLOG) BEFORE MEALS AND HS SUBQ 03/04/17 11:30 04/03/17 11:29 03/04/17 15:59 Lansoprazole (Prevacid) 30 mg DAILY GT 03/04/17 09:00 04/03/17 08:59 03/04/17 09:01 Piperacillin Sod/ Tazobactam Sod/ Dextrose (Zosyn/D5W) 110 ml @ 27.5 mls/hr Q8H IVPB 03/04/17 12:00 03/11/17 11:59 03/04/17 11:57 Sucralfate 1 gm 1 gm AC+HS GT 03/04/17 11:30 04/03/17 11:29 03/04/17 15:57 Vancomycin HCl 1 ea 1 ea DAILY PRN MISC Per rx protocol 03/04/17 06:45 04/03/17 06:44 Vancomycin HCl/ Dextrose (Vancomycin/D5W) 275 ml @ 183.708 mls/hr Q12H IVPB 03/04/17 21:00 03/09/17 20:59 MARGARETH VALENTINE Mar 04, 2017 16:38
[2017-03-04] MEDS: Vancomycin 1gm/D5W 275ml IVPB SCH ×2 (20:54)
[2017-03-05] VITALS (7 sets, daily range): BP systolic 105–138; BP diastolic 68–78
[2017-03-05] MEDS: Piperacillin/Tazobactam 3.375 GM in D5W 110 ML IVPB SCH ×3 (03:10→19:30)
[2017-03-05] MEDS: NovoLOG Insulin Flexpen SUBQ SCH ×4 (05:34→23:15)
[2017-03-05] MEDS: Sucralfate 1gm tab GT SCH ×4 (05:34→21:00)
--- NOTE | 2017-03-05 08:39 | General Progress Note ---
Assessment/Plan Problem List: (1) Respiratory distress ICD Codes: R06.00 - Dyspnea, unspecified SNOMED: 837351630 (2) Pneumonia ICD Codes: J18.9 - Pneumonia, unspecified organism SNOMED: 099321515, 03357611 (3) Dyspnea ICD Codes: R06.00 - Dyspnea, unspecified SNOMED: 605014542 (4) UTI (urinary tract infection) ICD Codes: N39.0 - Urinary tract infection, site not specified SNOMED: 86831577, 64454310 (5) Hypoxia ICD Codes: R09.02 - Hypoxemia SNOMED: 480054016, 68569360 Status: stable, progressing Assessment/Plan iv abx follow up cultures resp care/sucitoning gt feeds wound care dvt/stress ulcer prophylaxis. Subjective ROS Limited/Unobtainable: No Constitutional: Reports: malaise, weakness HEENT: Reports: no symptoms Respiratory: Reports: cough, shortness of breath, sputum Gastrointestinal/Abdominal: Reports: difficulty swallowing Genitourinary: Reports: no symptoms Neurologic/Psychiatric: Reports: pre-existing deficit, weakness Endocrine: Reports: no symptoms Hematologic/Lymphatic: Reports: anemia Allergies: Coded Allergies: No Known Allergies (Unverified , 02/04/17) All Systems: reviewed and negative except above Subjective no events. w/o complaints. mildly congested. on the vent. no fevers or chills. on iv abx Objective Last 24 Hour Vital Signs Date Time Temp Pulse Resp B/P Pulse Ox O2 Delivery O2 Flow Rate FiO2 03/05/17 08:00 40 03/05/17 04:36 71 19 40 03/05/17 04:00 69 03/05/17 04:00 99.0 86 20 138/76 99 Mechanical Ventilator 40 03/05/17 04:00 40 03/05/17 03:00 91 18 40 03/05/17 01:01 98 19 40 03/05/17 00:00 40 03/05/17 00:00 81 03/05/17 00:00 97.7 88 20 132/77 98 Mechanical Ventilator 40 03/04/17 23:49 97.6 03/04/17 23:49 97.6 03/04/17 22:50 99.2 03/04/17 22:38 80 20 40 03/04/17 20:43 80 19 40 03/04/17 20:00 99.3 87 21 157/78 100 Mechanical Ventilator 40 03/04/17 20:00 82 03/04/17 20:00 40 03/04/17 19:35 98 20 40 03/04/17 17:15 68 125/73 03/04/17 16:38 68 19 40 03/04/17 16:00 99.5 78 19 125/73 98 Mechanical Ventilator 40 03/04/17 16:00 40 03/04/17 16:00 81 03/04/17 14:44 104 22 40 03/04/17 13:26 71 20 40 03/04/17 12:00 70 03/04/17 12:00 99.9 76 19 116/68 100 Mechanical Ventilator 40 03/04/17 12:00 40 03/04/17 11:14 75 20 40 03/04/17 09:06 78 21 40 03/04/17 09:01 91 03/04/17 09:01 91 151/84 Intake and Output 03/04/17 03/05/17 19:00 07:00 Intake Total 840.0 ml 897.4 ml Output Total 1200 ml 1000 ml Balance -360.0 ml -102.6 ml Intake Free Water 50 ml IV Total 435.0 ml 367.4 ml Tube Feeding 360 ml 480 ml Other 45 ml Output Urine Total 1200 ml 1000 ml # Bowel Movements 2 1 Height (Feet): 6 Height (Inches): 1.00 Weight (Pounds): 185 General Appearance: WD/WN, lethargic, confused Neck: supple Cardiovascular: normal rate, regular rhythm Respiratory/Chest: rhonchi - bilaterally Edema: no edema noted Arm (L), no edema noted Arm (R), no edema noted Leg (L), no edema noted Leg (R), no edema noted Pedal (L), no edema noted Pedal (R), no edema noted Generalized KAPIL ALVARADO Mar 05, 2017 08:39
[2017-03-05] MEDS: Ascorbic Acid 500mg tab GT SCH (08:59)
[2017-03-05] MEDS: Digoxin 0.125mg tab GT SCH (08:59)
[2017-03-05] MEDS: Vancomycin 1gm/D5W 275ml IVPB SCH ×4 (09:00→21:00)
[2017-03-05] MEDS ORDERED: Tubing IV Secondary IV ONE (09:55)
[2017-03-05] MEDS ORDERED: NS 275ml ONE (09:55)
--- NOTE | 2017-03-05 18:18 | Pulmonology Progress Note ---
Assessment/Plan Assessment/Plan 1. Chronic respiratory failure. 2. History of spinal cord injury. 3. Congestive heart failure. 4. Pneumonia 5. Sepsis. 6. Urinary tract infection. 7. Functional quadriplegia. 8. PE PLAN IV antibiotics and titrate respiratory care oxygen and monitor needs nutrition wound care ID evaluation stabilize ventilatory support as is guarded Subjective ROS Limited/Unobtainable: Yes Allergies: Coded Allergies: No Known Allergies (Unverified , 02/04/17) Subjective care noted events noted on abx for pneumonia Objective Last 24 Hour Vital Signs Date Time Temp Pulse Resp B/P Pulse Ox O2 Delivery O2 Flow Rate FiO2 03/05/17 17:35 101 101/75 03/05/17 17:00 77 21 40 03/05/17 16:00 90 03/05/17 16:00 40 03/05/17 16:00 98.2 89 20 105/68 98 Mechanical Ventilator 40 03/05/17 15:24 88 22 40 03/05/17 12:49 69 19 40 03/05/17 12:00 40 03/05/17 12:00 80 03/05/17 12:00 98.4 95 20 134/77 100 Mechanical Ventilator 40 03/05/17 10:53 86 17 40 03/05/17 09:27 71 19 40 03/05/17 09:00 75 110/78 03/05/17 08:59 75 03/05/17 08:00 40 03/05/17 08:00 78 03/05/17 08:00 98.2 75 18 110/78 99 Mechanical Ventilator 40 03/05/17 06:42 77 20 40 03/05/17 04:36 71 19 40 03/05/17 04:00 69 03/05/17 04:00 99.0 86 20 138/76 99 Mechanical Ventilator 40 03/05/17 04:00 40 03/05/17 03:00 91 18 40 03/05/17 01:01 98 19 40 03/05/17 00:00 40 03/05/17 00:00 81 03/05/17 00:00 97.7 88 20 132/77 98 Mechanical Ventilator 40 03/04/17 23:49 97.6 03/04/17 23:49 97.6 03/04/17 22:50 99.2 03/04/17 22:38 80 20 40 03/04/17 20:43 80 19 40 03/04/17 20:00 99.3 87 21 157/78 100 Mechanical Ventilator 40 03/04/17 20:00 82 03/04/17 20:00 40 03/04/17 19:35 98 20 40 Intake and Output 03/04/17 03/05/17 19:00 07:00 Intake Total 840.0 ml 897.4 ml Output Total 1200 ml 1000 ml Balance -360.0 ml -102.6 ml Intake Free Water 50 ml IV Total 435.0 ml 367.4 ml Tube Feeding 360 ml 480 ml Other 45 ml Output Urine Total 1200 ml 1000 ml # Bowel Movements 2 1 Objective GENERAL: The patient is a thin, chronically ill-appearing male, in no apparent distress. HEART: Regular rate and rhythm. LUNGS: scattered rhonchi . ABDOMEN: Soft, nontender, and nondistended. EXTREMITIES: Without clubbing or cyanosis. skin: stage IV sacral wound noted. Microbiology Date/Time Source Procedure Growth Status 03/03/17 23:00 Blood Blood Culture - Preliminary NO GROWTH AFTER 24 HOURS Resulted 03/03/17 22:50 Blood Blood Culture - Preliminary NO GROWTH AFTER 24 HOURS Resulted 03/04/17 00:00 Urine,Clean Catch Urine Culture - Preliminary Gram Negative Hubert Resulted Current Medications Medications (Trade) Dose Ordered Sig/Kiet Route PRN Reason Start Time Stop Time Status Last Admin Dose Admin Acetaminophen (Tylenol) 325 mg Q6H PRN ORAL For Pain 03/04/17 07:15 04/03/17 07:14 Artificial Tears (Akwa-Tears) 1 drop Q12H PRN BOTH EYES Dry Eyes 03/04/17 08:15 04/03/17 07:14 Ascorbic Acid (Vitamin C) 500 mg DAILY GT 03/04/17 09:00 04/03/17 08:59 03/05/17 08:59 Bisacodyl (Dulcolax) 10 mg DAILY PRN RECTAL Constipation 03/04/17 08:15 04/03/17 08:14 Carvedilol (Coreg) 3.125 mg TWICE A DAY GT 03/04/17 09:00 04/03/17 08:59 03/04/17 17:15 Dextrose (Dextrose 50%) STAT PRN IV Hypoglycemia 03/04/17 07:15 04/03/17 07:14 Digoxin (Lanoxin) 0.125 mg DAILY GT 03/04/17 09:00 04/03/17 08:59 03/05/17 08:59 Furosemide (Lasix) 20 mg TWICE A DAY GT 03/04/17 09:00 04/03/17 08:59 03/05/17 17:36 Insulin Aspart (NovoLOG) Q6HR SUBQ 03/06/17 00:00 04/05/17 00:00 Lansoprazole (Prevacid) 30 mg DAILY GT 03/04/17 09:00 04/03/17 08:59 03/05/17 08:59 Piperacillin Sod/ Tazobactam Sod/ Dextrose (Zosyn/D5W) 110 ml @ 27.5 mls/hr Q8H IVPB 03/04/17 12:00 03/11/17 11:59 03/05/17 11:51 Sucralfate 1 gm 1 gm AC+HS GT 03/04/17 11:30 04/03/17 11:29 03/05/17 15:53 Vancomycin HCl 1 ea 1 ea DAILY PRN MISC Per rx protocol 03/04/17 06:45 04/03/17 06:44 Vancomycin HCl/ Dextrose (Vancomycin/D5W) 275 ml @ 183.708 mls/hr Q12H IVPB 03/04/17 21:00 03/09/17 20:59 03/05/17 09:00 MARGARETH VALENTINE Mar 05, 2017 18:18
[2017-03-06] MEDS: Piperacillin/Tazobactam 3.375 GM in D5W 110 ML IVPB SCH ×2 (03:00→12:45)
[2017-03-06 04:00] VITALS: BP 115/65
[2017-03-06] MEDS: NovoLOG Insulin Flexpen SUBQ SCH ×4 (05:51→23:23)
[2017-03-06] MEDS: Sucralfate 1gm tab GT SCH ×4 (05:51→21:16)
[2017-03-06 08:00] VITALS: BP 129/89
--- NOTE | 2017-03-06 08:57 | Pulmonology Progress Note ---
Assessment/Plan Assessment/Plan 1. Chronic respiratory failure. 2. History of spinal cord injury. 3. Congestive heart failure. 4. Pneumonia 5. Sepsis. 6. Urinary tract infection. 7. Functional quadriplegia. 8. PE PLAN IV antibiotics and titrate pending final cultures respiratory care oxygen and monitor needs nutrition wound care recheck chest xr stabilize ventilatory support as is guarded dc planning once improved Subjective ROS Limited/Unobtainable: Yes Allergies: Coded Allergies: No Known Allergies (Unverified , 02/04/17) Subjective care noted events noted on abx for pneumonia Objective Last 24 Hour Vital Signs Date Time Temp Pulse Resp B/P Pulse Ox O2 Delivery O2 Flow Rate FiO2 03/06/17 08:32 71 18 40 03/06/17 08:00 77 03/06/17 08:00 15.0 40 03/06/17 06:53 69 18 40 03/06/17 05:15 74 18 40 03/06/17 04:00 40 03/06/17 04:00 99.4 80 17 115/65 100 03/06/17 04:00 66 03/06/17 02:45 81 16 40 03/06/17 00:55 68 17 40 03/06/17 00:00 75 03/06/17 00:00 40 03/05/17 23:56 97.9 72 18 124/78 100 03/05/17 23:17 74 19 40 03/05/17 20:36 66 19 40 03/05/17 20:00 97.7 86 26 112/71 100 03/05/17 20:00 88 03/05/17 20:00 40 03/05/17 18:48 82 26 40 03/05/17 17:35 101 101/75 03/05/17 17:00 77 21 40 03/05/17 16:00 90 03/05/17 16:00 40 03/05/17 16:00 98.2 89 20 105/68 98 Mechanical Ventilator 40 03/05/17 15:24 88 22 40 03/05/17 12:49 69 19 40 03/05/17 12:00 40 03/05/17 12:00 80 03/05/17 12:00 98.4 95 20 134/77 100 Mechanical Ventilator 40 03/05/17 10:53 86 17 40 03/05/17 09:27 71 19 40 03/05/17 09:00 75 110/78 03/05/17 08:59 75 Intake and Output 03/05/17 03/06/17 19:00 07:00 Intake Total 915.000 ml 1192.4 ml Output Total 650 ml 475 ml Balance 265.000 ml 717.4 ml Intake Free Water 50 ml 100 ml IV Total 385.000 ml 532.4 ml Tube Feeding 480 ml 560 ml Output Urine Total 650 ml 475 ml # Bowel Movements 2 Objective GENERAL: The patient is a thin, chronically ill-appearing male, in no apparent distress. HEART: Regular rate and rhythm. LUNGS: scattered rhonchi . ABDOMEN: Soft, nontender, and nondistended. EXTREMITIES: Without clubbing or cyanosis. skin: stage IV sacral wound noted. Microbiology Date/Time Source Procedure Growth Status 03/03/17 23:00 Blood Blood Culture - Preliminary NO GROWTH AFTER 48 HOURS Resulted 03/03/17 22:50 Blood Blood Culture - Preliminary NO GROWTH AFTER 48 HOURS Resulted 03/04/17 00:00 Urine,Clean Catch Urine Culture - Preliminary Gram Negative Hubert Resulted Laboratory Tests 03/06/17 08:20: Vancomycin Level Trough [Pending] Current Medications Medications (Trade) Dose Ordered Sig/Kiet Route PRN Reason Start Time Stop Time Status Last Admin Dose Admin Acetaminophen (Tylenol) 325 mg Q6H PRN ORAL For Pain 03/04/17 07:15 04/03/17 07:14 03/06/17 03:17 Artificial Tears (Akwa-Tears) 1 drop Q12H PRN BOTH EYES Dry Eyes 03/04/17 08:15 04/03/17 07:14 Ascorbic Acid (Vitamin C) 500 mg DAILY GT 03/04/17 09:00 04/03/17 08:59 03/05/17 08:59 Bisacodyl (Dulcolax) 10 mg DAILY PRN RECTAL Constipation 03/04/17 08:15 04/03/17 08:14 Carvedilol (Coreg) 3.125 mg TWICE A DAY GT 03/04/17 09:00 04/03/17 08:59 03/04/17 17:15 Dextrose (Dextrose 50%) STAT PRN IV Hypoglycemia 03/04/17 07:15 04/03/17 07:14 Digoxin (Lanoxin) 0.125 mg DAILY GT 03/04/17 09:00 04/03/17 08:59 03/05/17 08:59 Furosemide (Lasix) 20 mg TWICE A DAY GT 03/04/17 09:00 04/03/17 08:59 03/05/17 17:36 Insulin Aspart (NovoLOG) Q6HR SUBQ 03/06/17 00:00 04/05/17 00:00 03/06/17 05:51 Lansoprazole (Prevacid) 30 mg DAILY GT 03/04/17 09:00 04/03/17 08:59 03/05/17 08:59 Piperacillin Sod/ Tazobactam Sod/ Dextrose (Zosyn/D5W) 110 ml @ 27.5 mls/hr Q8H IVPB 03/04/17 12:00 03/11/17 11:59 03/06/17 03:00 Sucralfate 1 gm 1 gm AC+HS GT 03/04/17 11:30 04/03/17 11:29 03/06/17 05:51 Vancomycin HCl 1 ea 1 ea DAILY PRN MISC Per rx protocol 03/04/17 06:45 04/03/17 06:44 Vancomycin HCl/ Dextrose (Vancomycin/D5W) 275 ml @ 183.708 mls/hr Q12H IVPB 03/04/17 21:00 03/09/17 20:59 03/05/17 21:00 MARGARETH VALENTINE March 06, 2017 08:57
[2017-03-06 09:16] LABS: ANION GAP 9 (5-15); CARBON DIOXIDE 36 mEQ/L (20-30); CHLORIDE 88 mEQ/L (98-107); CREATININE 0.4 mg/dL (0.7-1.2); HEMOLYSIS 5; POTASSIUM 3.6 mEQ/L (3.4-4.9); SODIUM 133 mEQ/L (135-145)
[2017-03-06 09:26] LABS: DIGOXIN 0.7 ng/mL (0.5-2.0)
[2017-03-06] MEDS: Ascorbic Acid 500mg tab GT SCH (10:01)
[2017-03-06] MEDS: Digoxin 0.125mg tab GT SCH (10:04)
[2017-03-06] MEDS: Xarelto 15mg tab ORAL SCH ×2 (10:08→19:09)
[2017-03-06 10:45] LABS: MEAN CORPUSCULAR HEMOGLOBIN 29.7 PG (27.0-31.0); MEAN CORPUSCULAR HGB CONC 31.9 G/DL (32.0-36.0); MEAN CORPUSCULAR VOLUME 93 FL (80-99); MEAN PLATELET VOLUME 5.9 FL (6.5-10.1); PLATELET COUNT 155 K/UL (150-450); RED BLOOD COUNT 2.82 M/UL (4.70-6.10); WHITE BLOOD COUNT 13.6 K/UL (4.8-10.8)
[2017-03-06 11:33] LABS: ANISOCYTOSIS 1+; BAND NEUTROPHILS % (MANUAL) 0 % (0-8); BASOPHILS % (MANUAL) 0 % (0-2); EOSINOPHILS % (MANUAL) 0 % (0-3); HYPOCHROMASIA 1+; LYMPHOCYTES % (MANUAL) 4 % (20-45); NEUTROPHILS % (MANUAL) 92 % (45-75); PLATELET ESTIMATE ADEQUATE; PLATELET MORPHOLOGY NORMAL; TOTAL CELLS COUNTED 100
--- NOTE | 2017-03-06 11:48 | Diagnostic Imaging Report ---
Indication: SOB Technique: One view of the chest Comparison: 03/04/2017 Findings: The heart is enlarged. Left-sided pleural effusion, right lung volume loss with elevation right hemidiaphragm persists. Tracheostomy and left chest pacemaker again demonstrated. Some consolidation in the right perihilar region persists, unchanged Impression: Unchanged, over one day, findings as above.
[2017-03-06 12:00] VITALS: BP 103/62
[2017-03-06] MEDS: Vancomycin 750 MG in D5W 275 ML IVPB SCH ×2 (12:45→22:23)
--- NOTE | 2017-03-06 14:08 | General Progress Note ---
Assessment/Plan Problem List: (1) Respiratory distress ICD Codes: R06.00 - Dyspnea, unspecified SNOMED: 484046127 (2) Pneumonia ICD Codes: J18.9 - Pneumonia, unspecified organism SNOMED: 747119144, 03043156 (3) Dyspnea ICD Codes: R06.00 - Dyspnea, unspecified SNOMED: 496697021 (4) UTI (urinary tract infection) ICD Codes: N39.0 - Urinary tract infection, site not specified SNOMED: 51400912, 69359664 (5) Hypoxia ICD Codes: R09.02 - Hypoxemia SNOMED: 606673548, 57167399 Status: stable, progressing Assessment/Plan iv abx follow up cultures resp care/sucitoning monitor cxr gt feeds wound care dvt/stress ulcer prophylaxis. Subjective ROS Limited/Unobtainable: Yes Constitutional: Reports: malaise, weakness HEENT: Reports: no symptoms Cardiovascular: Reports: no symptoms Respiratory: Reports: sputum Gastrointestinal/Abdominal: Reports: difficulty swallowing Genitourinary: Reports: no symptoms Neurologic/Psychiatric: Reports: no symptoms Endocrine: Reports: no symptoms Hematologic/Lymphatic: Reports: anemia Allergies: Coded Allergies: No Known Allergies (Unverified , 02/04/17) All Systems: reviewed and negative except above Subjective no events. w/o complaints. mildly congested. on the vent. no fevers or chills. on iv abx cxr still with left sided effusion and right perihilar infiltrate Objective Last 24 Hour Vital Signs Date Time Temp Pulse Resp B/P Pulse Ox O2 Delivery O2 Flow Rate FiO2 03/06/17 13:01 72 18 40 03/06/17 10:42 70 18 40 03/06/17 10:04 68 03/06/17 10:03 68 129/69 03/06/17 08:32 71 18 40 03/06/17 08:00 77 03/06/17 08:00 98.3 75 22 129/89 100 Mechanical Ventilator 40 03/06/17 08:00 15.0 40 03/06/17 06:53 69 18 40 03/06/17 05:15 74 18 40 03/06/17 04:00 40 03/06/17 04:00 99.4 80 17 115/65 100 03/06/17 04:00 66 03/06/17 02:45 81 16 40 03/06/17 00:55 68 17 40 03/06/17 00:00 75 03/06/17 00:00 40 03/05/17 23:56 97.9 72 18 124/78 100 03/05/17 23:17 74 19 40 03/05/17 20:36 66 19 40 03/05/17 20:00 97.7 86 26 112/71 100 03/05/17 20:00 88 03/05/17 20:00 40 03/05/17 18:48 82 26 40 03/05/17 17:35 101 101/75 03/05/17 17:00 77 21 40 03/05/17 16:00 90 03/05/17 16:00 40 03/05/17 16:00 98.2 89 20 105/68 98 Mechanical Ventilator 40 03/05/17 15:24 88 22 40 Intake and Output 03/05/17 03/06/17 19:00 07:00 Intake Total 915.000 ml 1192.4 ml Output Total 650 ml 475 ml Balance 265.000 ml 717.4 ml Intake Free Water 50 ml 100 ml IV Total 385.000 ml 532.4 ml Tube Feeding 480 ml 560 ml Output Urine Total 650 ml 475 ml # Bowel Movements 2 Laboratory Tests 03/06/17 08:20: Sodium Level 133L, Potassium Level 3.6, Chloride Level 88L, Carbon Dioxide Level 36H, Anion Gap 9, Blood Urea Nitrogen 18, Creatinine 0.4L, Estimat Glomerular Filtration Rate , Glucose Level 126H, Calcium Level 8.0L, Vancomycin Level Trough 21.5H, Digoxin Level 0.7 03/06/17 09:55: White Blood Count 13.6H, Red Blood Count 2.82L, Hemoglobin 8.4L, Hematocrit 26.3L, Mean Corpuscular Volume 93, Mean Corpuscular Hemoglobin 29.7, Mean Corpuscular Hemoglobin Concent 31.9L, Red Cell Distribution Width 17.0H, Platelet Count 155, Mean Platelet Volume 5.9L, Neutrophils (%) (Auto) , Lymphocytes (%) (Auto) , Monocytes (%) (Auto) , Eosinophils (%) (Auto) , Basophils (%) (Auto) , Differential Total Cells Counted 100, Neutrophils % ( Manual) 92H, Lymphocytes % (Manual) 4L, Monocytes % (Manual) 4, Eosinophils % ( Manual) 0, Basophils % (Manual) 0, Band Neutrophils 0, Platelet Estimate Adequate, Platelet Morphology Normal, Hypochromasia 1+, Anisocytosis 1+ Height (Feet): 6 Height (Inches): 1.00 Weight (Pounds): 185 Objective General Appearance: WD/WN, lethargic, confused Neck: supple Cardiovascular: normal rate, regular rhythm Respiratory/Chest: rhonchi - bilaterally Edema: no edema noted Arm (L), no edema noted Arm (R), no edema noted Leg (L), no edema noted Leg (R), no edema noted Pedal (L), no edema noted Pedal (R), no edema noted Generalized KAPIL ALVARADO March 06, 2017 14:08
--- NOTE | 2017-03-06 14:18 | Wound Care Consultation ---
Wound Assessment Wound Assessment #1: Wound Number: #1 Wound Present on Admission: Yes New Wound: No Status Change of Wound: No Wound Location Body Site Modif: mid Wound Location Body Site: sacral Wound Type: pressure ulcer Myrna Test: Does not Myrna Pressure Ulcer Stage: IV/unstageable Wound Thickness: Full Thickness Wound Length: 7.5 Wound Width: 6.0 Wound Depth: utd Percent of Wound Bed Yellow/Wh: 100% - yellow, [place]. Other Colors Identified: surrounding alison wound tissue noted maroon in color. Wound Drainage Description: Serosanguineous Wound Drainage Amount: Copious Wound Drainage Odor: None/Absent Tissue Surrounding Wound: Macerated Wound General Appearance: Necrotic Wound Assessment #2: Wound Number: #2 Wound Present on Admission: Yes New Wound: No Status Change of Wound: No Wound Location Body Site Modif: left Wound Location Body Site: ischial tuberosity Wound Type: pressure ulcer Myrna Test: Does not Myrna Pressure Ulcer Stage: IV/unstageable Wound Thickness: Full Thickness Wound Length: 5.0 Wound Width: 4.0 Wound Depth: utd Percent of Wound [place]/Red: 10 Percent of Wound Bed Yellow/Wh: 80 Percent of Wound Purple/Maroon: 10 Other Colors Identified: noted full thickness scar tissue to surrounding wound site Wound Drainage Description: Serosanguineous Wound Drainage Amount: Moderate Wound Drainage Odor: None/Absent Tissue Surrounding Wound: Macerated Wound General Appearance: Reddened - maroon, Necrotic Wound Assessment #3: Wound Number: #3 Wound Present on Admission: Yes New Wound: No Status Change of Wound: No Wound Location Body Site Modif: right, lower, lateral Wound Location Body Site: leg Wound Type: pressure ulcer Myrna Test: Does not Myrna Pressure Ulcer Stage: IV/unstageable Wound Thickness: Full Thickness Wound Length: 3.0 Wound Width: 1.5 Wound Depth: utd Percent of Wound [place]/Red: 20 Percent of Wound Bed Yellow/Wh: 80 Wound Drainage Description: Serosanguineous Wound Drainage Amount: Moderate Wound Drainage Odor: None/Absent Tissue Surrounding Wound: Macerated Wound General Appearance: Reddened, Necrotic Wound Assessment #4: Wound Number: #4 Wound Present on Admission: Yes New Wound: No Status Change of Wound: No Wound Location Body Site Modif: right Wound Location Body Site: ischial tuberosity Wound Type: pressure ulcer Myrna Test: Does not Myrna Pressure Ulcer Stage: deep tissue injury Wound Thickness: Full Thickness Wound Length: 3.5 Wound Width: 3.5 Wound Depth: utd Percent of Wound Purple/Maroon: 100 Wound Drainage Amount: None Wound Drainage Odor: None/Absent Tissue Surrounding Wound: Erythemic Wound General Appearance: Reddened - maroon Wound Comment #1 Sacral pressure ulcer pressure ulcer stage IV/Unstageable. #2 Left ischial tuberosity pressure ulcer stage IV/Unstageable. #3 Right lower lateral leg pressure ulcer stage IV/Unstageable. #4 Right ischial tuberosity pressure ulcer deep tissue injury. Recommendation. -Low air loss mattress with AP p200. -Turn and reposition. -Keep clean and dry. -Optimize nutrition. -Offload affected sites. -Offload heels and both feet. -Local wound care as ordered. -Avoid shear and friction. -Assess and notify MD for any changes of condition in skin. RICO PEREZ March 06, 2017 14:18
[2017-03-06] MEDS: Meropenem 1gm/NS 110ml IVPB SCH ×4 (15:49→21:17)
[2017-03-06 16:00] VITALS: BP 122/72
[2017-03-06 20:00] VITALS: BP 127/63
[2017-03-07] VITALS: BP 106/66
[2017-03-07 04:00] VITALS: BP 133/75
[2017-03-07] MEDS: Sucralfate 1gm tab GT SCH ×4 (05:32→21:22)
[2017-03-07] MEDS: Meropenem 1gm/NS 110ml IVPB SCH ×6 (05:32→21:22)
[2017-03-07] MEDS: NovoLOG Insulin Flexpen SUBQ SCH ×4 (05:35→23:48)
[2017-03-07 08:00] VITALS: BP 124/80
--- NOTE | 2017-03-07 08:35 | Pulmonology Progress Note ---
Assessment/Plan Assessment/Plan 1. Chronic respiratory failure. 2. History of spinal cord injury. 3. Congestive heart failure. 4. Pneumonia 5. Sepsis. 6. Urinary tract infection. 7. Functional quadriplegia. 8. PE PLAN IV antibiotics and titrate pending final cultures respiratory care consider cpt oxygen and monitor needs nutrition wound care recheck chest xr today and in am stabilize ventilatory support as is guarded dc planning once improved hope in am Subjective ROS Limited/Unobtainable: Yes Allergies: Coded Allergies: No Known Allergies (Unverified , 02/04/17) Subjective care noted events noted on abx for pneumonia cxr with some atelectasis and pneumonia Objective Last 24 Hour Vital Signs Date Time Temp Pulse Resp B/P Pulse Ox O2 Delivery O2 Flow Rate FiO2 03/07/17 07:04 72 25 40 03/07/17 04:45 71 23 40 03/07/17 04:00 84 03/07/17 04:00 15.0 40 03/07/17 04:00 100.5 84 28 133/75 100 Mechanical Ventilator 40 03/07/17 03:36 99.0 03/07/17 02:33 87 21 40 03/07/17 00:33 108 23 40 03/07/17 00:00 15.0 40 03/07/17 00:00 76 03/07/17 00:00 99.0 75 20 106/66 97 Mechanical Ventilator 40 03/06/17 22:38 81 21 40 03/06/17 20:31 80 22 40 03/06/17 20:00 83 03/06/17 20:00 98.8 74 18 127/63 99 Mechanical Ventilator 40 03/06/17 20:00 15.0 40 03/06/17 19:08 136/79 03/06/17 18:53 70 18 40 03/06/17 17:04 74 20 40 03/06/17 16:00 98.2 75 18 122/72 99 Mechanical Ventilator 40 03/06/17 16:00 15.0 40 03/06/17 16:00 69 03/06/17 14:58 71 18 40 03/06/17 13:01 72 18 40 03/06/17 12:00 40 03/06/17 12:00 68 03/06/17 12:00 99.1 77 22 103/62 99 Mechanical Ventilator 40 03/06/17 10:42 70 18 40 03/06/17 10:04 68 03/06/17 10:03 68 129/69 Intake and Output 03/06/17 03/07/17 19:00 07:00 Intake Total 440 ml 660 ml Output Total 850 ml 1000 ml Balance -410 ml -340 ml IV Total 385 ml Tube Feeding 55 ml 660 ml Output Urine Total 850 ml 1000 ml # Bowel Movements 1 Objective GENERAL: The patient is a thin, chronically ill-appearing male, in no apparent distress. HEART: Regular rate and rhythm. LUNGS: scattered rhonchi . ABDOMEN: Soft, nontender, and nondistended. EXTREMITIES: Without clubbing or cyanosis. skin: stage IV sacral wound noted. Laboratory Tests 03/06/17 09:55: White Blood Count 13.6H, Red Blood Count 2.82L, Hemoglobin 8.4L, Hematocrit 26.3L, Mean Corpuscular Volume 93, Mean Corpuscular Hemoglobin 29.7, Mean Corpuscular Hemoglobin Concent 31.9L, Red Cell Distribution Width 17.0H, Platelet Count 155, Mean Platelet Volume 5.9L, Neutrophils (%) (Auto) , Lymphocytes (%) (Auto) , Monocytes (%) (Auto) , Eosinophils (%) (Auto) , Basophils (%) (Auto) , Differential Total Cells Counted 100, Neutrophils % ( Manual) 92H, Lymphocytes % (Manual) 4L, Monocytes % (Manual) 4, Eosinophils % ( Manual) 0, Basophils % (Manual) 0, Band Neutrophils 0, Platelet Estimate Adequate, Platelet Morphology Normal, Hypochromasia 1+, Anisocytosis 1+ Current Medications Medications (Trade) Dose Ordered Sig/Kiet Route PRN Reason Start Time Stop Time Status Last Admin Dose Admin Acetaminophen (Tylenol) 325 mg Q6H PRN ORAL For Pain 03/04/17 07:15 04/03/17 07:14 03/07/17 02:37 Artificial Tears (Akwa-Tears) 1 drop Q12H PRN BOTH EYES Dry Eyes 03/04/17 08:15 04/03/17 07:14 Ascorbic Acid (Vitamin C) 500 mg DAILY GT 03/04/17 09:00 04/03/17 08:59 03/06/17 10:01 Bisacodyl (Dulcolax) 10 mg DAILY PRN RECTAL Constipation 03/04/17 08:15 04/03/17 08:14 Carvedilol (Coreg) 3.125 mg TWICE A DAY GT 03/04/17 09:00 04/03/17 08:59 03/06/17 19:08 Collagenase (Santyl) 1 applic DAILY TOPIC 03/07/17 09:00 04/06/17 08:59 Dextrose (Dextrose 50%) STAT PRN IV Hypoglycemia 03/04/17 07:15 04/03/17 07:14 Digoxin (Lanoxin) 0.125 mg DAILY GT 03/04/17 09:00 04/03/17 08:59 03/06/17 10:04 Furosemide (Lasix) 20 mg TWICE A DAY GT 03/04/17 09:00 04/03/17 08:59 03/06/17 19:08 Insulin Aspart (NovoLOG) Q6HR SUBQ 03/06/17 00:00 04/05/17 00:00 03/07/17 05:35 Lansoprazole (Prevacid) 30 mg DAILY GT 03/04/17 09:00 04/03/17 08:59 03/06/17 10:01 Meropenem/Sodium Chloride (Merrem/Sodium Chloride) 110 ml @ 220 mls/hr Q8HR@0600,1400,2200 IVPB 03/06/17 14:30 03/11/17 14:29 03/07/17 05:32 Rivaroxaban 15 mg 15 mg BID ORAL 03/06/17 10:00 04/05/17 09:59 03/06/17 19:09 Sucralfate (Carafate) 1 gm AC+HS GT 03/04/17 11:30 04/03/17 11:29 03/07/17 05:32 Vancomycin HCl (Vanco rx to dose) 1 ea DAILY PRN MISC Per rx protocol 03/04/17 06:45 04/03/17 06:44 Vancomycin HCl 750 mg/Dextrose 275 ml @ 183.708 mls/hr Q12HR@1100,2300 IVPB 03/06/17 11:00 03/09/17 10:59 03/06/17 22:23 MARGARETH VALENTINE March 07, 2017 08:35
[2017-03-07] MEDS: Xarelto 15mg tab ORAL SCH ×2 (09:00→17:49)
[2017-03-07] MEDS: Ascorbic Acid 500mg tab GT SCH (09:27)
[2017-03-07] MEDS: Digoxin 0.125mg tab GT SCH (09:29)
[2017-03-07] MEDS: Vancomycin 750 MG in D5W 275 ML IVPB SCH ×3 (11:39→23:30)
--- NOTE | 2017-03-07 11:44 | General Progress Note ---
Assessment/Plan Problem List: (1) Respiratory distress ICD Codes: R06.00 - Dyspnea, unspecified SNOMED: 549570799 (2) Pneumonia ICD Codes: J18.9 - Pneumonia, unspecified organism SNOMED: 067922302, 73217861 (3) Dyspnea ICD Codes: R06.00 - Dyspnea, unspecified SNOMED: 864562419 (4) UTI (urinary tract infection) ICD Codes: N39.0 - Urinary tract infection, site not specified SNOMED: 73157663, 70883334 (5) Hypoxia ICD Codes: R09.02 - Hypoxemia SNOMED: 639787786, 16123230 Assessment/Plan iv abx follow up cultures resp care/sucitoning monitor cxr tylenol for fever repeat labs in am gt feeds wound care dvt/stress ulcer prophylaxis. Subjective ROS Limited/Unobtainable: No Constitutional: Reports: fever, malaise, weakness HEENT: Reports: no symptoms Cardiovascular: Reports: no symptoms Respiratory: Reports: cough, sputum Gastrointestinal/Abdominal: Reports: difficulty swallowing Genitourinary: Reports: no symptoms Neurologic/Psychiatric: Reports: pre-existing deficit Endocrine: Reports: no symptoms Hematologic/Lymphatic: Reports: anemia Allergies: Coded Allergies: No Known Allergies (Unverified , 02/04/17) All Systems: reviewed and negative except above Subjective fever to 100.7. w/o complaints. mildly congested. on the vent. no fevers or chills. on iv abx cxr still with left sided effusion and right perihilar infiltrate. son at the bedside Objective Last 24 Hour Vital Signs Date Time Temp Pulse Resp B/P Pulse Ox O2 Delivery O2 Flow Rate FiO2 03/07/17 10:38 63 23 40 03/07/17 09:29 83 03/07/17 09:29 83 124/80 03/07/17 08:48 71 25 40 03/07/17 08:00 100.7 83 24 124/80 100 Mechanical Ventilator 40 03/07/17 07:04 72 25 40 03/07/17 04:45 71 23 40 03/07/17 04:00 84 03/07/17 04:00 15.0 40 03/07/17 04:00 100.5 84 28 133/75 100 Mechanical Ventilator 40 03/07/17 03:36 99.0 03/07/17 02:33 87 21 40 03/07/17 00:33 108 23 40 03/07/17 00:00 15.0 40 03/07/17 00:00 76 03/07/17 00:00 99.0 75 20 106/66 97 Mechanical Ventilator 40 03/06/17 22:38 81 21 40 03/06/17 20:31 80 22 40 03/06/17 20:00 83 03/06/17 20:00 98.8 74 18 127/63 99 Mechanical Ventilator 40 03/06/17 20:00 15.0 40 03/06/17 19:08 136/79 03/06/17 18:53 70 18 40 03/06/17 17:04 74 20 40 03/06/17 16:00 98.2 75 18 122/72 99 Mechanical Ventilator 40 03/06/17 16:00 15.0 40 03/06/17 16:00 69 03/06/17 14:58 71 18 40 03/06/17 13:01 72 18 40 03/06/17 12:00 40 03/06/17 12:00 68 03/06/17 12:00 99.1 77 22 103/62 99 Mechanical Ventilator 40 Intake and Output 03/06/17 03/07/17 18:59 06:59 Intake Total 435 ml 660 ml Output Total 850 ml 1000 ml Balance -415 ml -340 ml IV Total 385 ml Tube Feeding 50 ml 660 ml Output Urine Total 850 ml 1000 ml # Bowel Movements 1 Height (Feet): 6 Height (Inches): 1.00 Weight (Pounds): 185 Objective General Appearance: WD/WN, lethargic, confused Neck: supple Cardiovascular: normal rate, regular rhythm Respiratory/Chest: rhonchi - bilaterally Edema: no edema noted Arm (L), no edema noted Arm (R), no edema noted Leg (L), no edema noted Leg (R), no edema noted Pedal (L), no edema noted Pedal (R), no edema noted Generalized KAPIL ALVARADO March 07, 2017 11:44
[2017-03-07 12:00] VITALS: BP 118/72
--- NOTE | 2017-03-07 12:11 | Diagnostic Imaging Report ---
Indication: Dyspnea Comparison: 03/06/17 A single view chest radiograph was obtained. Findings: Tracheostomy and left-sided pacemaker noted. Cardiomegaly is present. Hazy groundglass basilar opacities are present likely pleural effusions. Interstitial edema suspected. Bones are slightly osteopenic. Impression: Interstitial edema/CHF suspected. Bilateral pleural effusion suspected
[2017-03-07 16:00] VITALS: BP 111/71
[2017-03-07] MEDS ORDERED: NS 275ml ONE (17:54)
--- NOTE | 2017-03-07 18:38 | Consultation ---
DATE OF CONSULTATION: 03/07/2017 INFECTIOUS DISEASE CONSULTATION REFERRING PHYSICIAN: Rio Charles M.D. REASON FOR CONSULTATION: Pneumonia. HISTORY OF PRESENTING ILLNESS: This is a 72-year-old gentleman with history of chronic respiratory failure, status post tracheostomy, who came in from a half-way facility with shortness of breath and hypoxia. He was found to have a pneumonia and an Infectious Diseases consultation has been obtained for antibiotics. PAST MEDICAL HISTORY: 1. History of respiratory failure status post tracheostomy. 2. Status post G-tube placement. 3. History of spinal cord injury. 4. History of anemia. 5. Congestive heart failure. MEDICATIONS: As an inpatient, the patient is on collagenase, vancomycin, meropenem, Xarelto, insulin, sucralfate, ascorbic acid, Coreg, digoxin, Lasix, lansoprazole, artificial tears, Dulcolax and Tylenol. ALLERGIES: No known drug allergies. SOCIAL HISTORY: He does not smoke, drink, or use drugs. FAMILY HISTORY: Noncontributory. REVIEW OF SYSTEMS: Unable to obtain currently. PHYSICAL EXAMINATION: VITAL SIGNS: T-max of 100.7 degrees, pulse of 63, respiratory of 23, blood pressure 124/80 and O2 saturation of 100%. HEENT: Pupils equally reactive to light and accommodation. Mouth appears clean without thrush. NECK: Supple. No adenopathy. No JVD. CARDIOVASCULAR: Regular rate and rhythm. No murmurs. LUNGS: Clear to auscultation bilaterally. No crackles. No wheezes. ABDOMEN: Soft and nontender. No organomegaly. G-tube site appears clean. EXTREMITIES: No cyanosis. No clubbing. Edema noted bilaterally. LABORATORY AND DIAGNOSTIC DATA: White count 13.6, hemoglobin 8.4, hematocrit 26.3, MCV 93 and platelet count of 155,000 with neutrophils of 92%. Sodium 133, potassium 3.6, chloride 88, bicarbonate 26, BUN 18, creatinine 0.4 and glucose 126. Calcium 8. On 03/03/2017, total bilirubin 0.6. AST 25, ALT 18 and alkaline phosphatase 100. CK of 25 and CK-MB 1.7. Total protein 6.5. Albumin 2.8. Lipase of 42. Urinalysis showing too numerous to count white cells. On 03/04/2017, urine culture is growing Klebsiella, which is imipenem susceptible and ertapenem susceptible. Blood cultures are negative. Sacral wound has a gram-negative kaitlyn. Nasal swab was negative for MRSA. Chest x-ray showing interstitial edema, congestive heart failure and bilateral pleural effusions noted. ASSESSMENT: This is a 72-year-old gentleman with history of respiratory failure, status post tracheostomy who comes in with 1. Klebsiella urinary tract infection, which is an extended-spectrum beta-lactamases. 2. We would also like to rule out pneumonia as a possibility. 3. Respiratory failure. PLAN: 1. Continue vancomycin and meropenem. 2. We will order sputum for Gram-stain and culture. 3. We will follow up cultures and adjust antibiotics accordingly. I would like to thank, Dr. Charles, for this consultation. Livan Dallas M.D. DR: LENORE JOB#: [id number] CC: Rio Charles M.D.
[2017-03-07 20:00] VITALS: BP 106/58
[2017-03-07] MEDS ORDERED: Acetaminophen 650mg/20.3ml GT PRN (22:45)
[2017-03-08 00:21] VITALS: BP 111/54
[2017-03-08 04:00] VITALS: BP 115/60
[2017-03-08] MEDS: Meropenem 1gm/NS 110ml IVPB SCH ×6 (05:25→22:06)
[2017-03-08] MEDS: NovoLOG Insulin Flexpen SUBQ SCH ×3 (05:28→17:52)
[2017-03-08] MEDS: Sucralfate 1gm tab GT SCH ×4 (05:31→22:05)
[2017-03-08 05:50] LABS: MEAN CORPUSCULAR HEMOGLOBIN 30.4 PG (27.0-31.0); MEAN CORPUSCULAR HGB CONC 32.6 G/DL (32.0-36.0); MEAN CORPUSCULAR VOLUME 93 FL (80-99); MEAN PLATELET VOLUME 6.3 FL (6.5-10.1); PLATELET COUNT 134 K/UL (150-450); RED BLOOD COUNT 2.61 M/UL (4.70-6.10); RED CELL DISTRIBUTION WIDTH 17.2 % (11.6-14.8); WHITE BLOOD COUNT 10.8 K/UL (4.8-10.8)
[2017-03-08 06:03] LABS: ALANINE AMINOTRANSFERASE 17 U/L (3-41); ALBUMIN/GLOBULIN RATIO 0.6 (1.0-2.7); ANION GAP 6 (5-15); ASPARTATE AMINO TRANSFERASE 23 U/L (5-40); CARBON DIOXIDE 35 mEQ/L (20-30); CHLORIDE 90 mEQ/L (98-107); CREATININE 0.3 mg/dL (0.7-1.2); HEMOLYSIS 2; SODIUM 131 mEQ/L (135-145); TOTAL PROTEIN 5.8 g/dL (6.6-8.7)
[2017-03-08 08:00] VITALS: BP 124/71
[2017-03-08 08:10] LABS: ANISOCYTOSIS 1+; BAND NEUTROPHILS % (MANUAL) 0 % (0-8); BASOPHILS % (MANUAL) 0 % (0-2); EOSINOPHILS % (MANUAL) 0 % (0-3); HYPOCHROMASIA 1+; LYMPHOCYTES % (MANUAL) 5 % (20-45); NEUTROPHILS % (MANUAL) 91 % (45-75); PLATELET ESTIMATE DECREASED; PLATELET MORPHOLOGY NORMAL; TOTAL CELLS COUNTED 100
[2017-03-08] MEDS: Xarelto 15mg tab ORAL SCH ×2 (08:19→17:51)
[2017-03-08] MEDS: Ascorbic Acid 500mg tab GT SCH (08:19)
[2017-03-08] MEDS: Digoxin 0.125mg tab GT SCH (08:19)
--- NOTE | 2017-03-08 08:33 | Pulmonology Progress Note ---
Assessment/Plan Assessment/Plan 1. Chronic respiratory failure. 2. History of spinal cord injury. 3. Congestive heart failure. 4. Pneumonia 5. Sepsis. 6. Urinary tract infection. 7. Functional quadriplegia. 8. PE 9. anemia PLAN IV antibiotics per ID transfuse check BNP with ? chf respiratory care monitor congestion oxygen and monitor needs nutrition wound care recheck chest xr for change stabilize ventilatory support as is guarded dc planning on hold Subjective ROS Limited/Unobtainable: Yes Allergies: Coded Allergies: No Known Allergies (Unverified , 02/04/17) Subjective care noted anemic possible pulmonary edema Objective Last 24 Hour Vital Signs Date Time Temp Pulse Resp B/P Pulse Ox O2 Delivery O2 Flow Rate FiO2 03/08/17 08:19 74 03/08/17 08:19 74 124/71 03/08/17 06:44 94 20 40 03/08/17 05:09 100 18 40 03/08/17 04:00 15.0 40 03/08/17 04:00 80 03/08/17 04:00 98.0 80 19 115/60 97 Mechanical Ventilator 03/08/17 03:00 72 17 40 03/08/17 01:12 73 20 40 03/08/17 00:21 97.9 85 18 111/54 98 Mechanical Ventilator 03/08/17 00:00 77 03/08/17 00:00 15.0 40 03/07/17 23:29 72 20 40 03/07/17 21:25 76 20 40 03/07/17 20:30 98.1 03/07/17 20:30 98.1 03/07/17 20:00 100.0 72 19 106/58 98 Mechanical Ventilator 03/07/17 20:00 71 03/07/17 20:00 15.0 40 03/07/17 19:25 72 21 40 03/07/17 17:51 111/71 03/07/17 16:46 77 24 40 03/07/17 16:00 15.0 40 03/07/17 16:00 99.5 78 21 111/71 98 Mechanical Ventilator 40 03/07/17 16:00 78 03/07/17 14:32 70 20 40 03/07/17 12:38 75 22 40 03/07/17 12:00 63 03/07/17 12:00 98.9 81 21 118/72 98 Mechanical Ventilator 40 03/07/17 12:00 15.0 40 03/07/17 10:38 63 23 40 03/07/17 09:29 83 03/07/17 09:29 83 124/80 03/07/17 08:48 71 25 40 Intake and Output 03/07/17 03/08/17 19:00 07:00 Intake Total 440 ml 1237.4 ml Output Total 1000 ml 700 ml Balance -560 ml 537.4 ml Intake Free Water 100 ml IV Total 385 ml 477.4 ml Tube Feeding 55 ml 660 ml Output Urine Total 1000 ml 700 ml # Voids 1 # Bowel Movements 4 2 Objective GENERAL: The patient is a thin, chronically ill-appearing male, in no apparent distress. HEART: Regular rate and rhythm. LUNGS: scattered rhonchi . ABDOMEN: Soft, nontender, and nondistended. EXTREMITIES: Without clubbing or cyanosis. skin: stage IV sacral wound noted. Laboratory Tests 03/07/17 22:10: Vancomycin Level Trough 15.3H 03/08/17 03:45: White Blood Count 10.8, Red Blood Count 2.61L, Hemoglobin 7.9L, Hematocrit 24.4L , Mean Corpuscular Volume 93, Mean Corpuscular Hemoglobin 30.4, Mean Corpuscular Hemoglobin Concent 32.6, Red Cell Distribution Width 17.2H, Platelet Count 134L, Mean Platelet Volume 6.3L, Neutrophils (%) (Auto) , Lymphocytes (%) (Auto) , Monocytes (%) (Auto) , Eosinophils (%) (Auto) , Basophils (%) (Auto) , Differential Total Cells Counted 100, Neutrophils % ( Manual) 91H, Lymphocytes % (Manual) 5L, Monocytes % (Manual) 4, Eosinophils % ( Manual) 0, Basophils % (Manual) 0, Band Neutrophils 0, Platelet Estimate DecreasedL, Platelet Morphology Normal, Hypochromasia 1+, Anisocytosis 1+, Sodium Level 131L, Potassium Level 4.0, Chloride Level 90L, Carbon Dioxide Level 35H, Anion Gap 6, Blood Urea Nitrogen 20, Creatinine 0.3L, Estimat Glomerular Filtration Rate , Glucose Level 110H, Calcium Level 8.0L, Total Bilirubin 0.7, Aspartate Amino Transf (AST/SGOT) 23, Alanine Aminotransferase ( ALT/SGPT) 17, Alkaline Phosphatase 94, Total Protein 5.8L, Albumin 2.2L, Globulin 3.6, Albumin/Globulin Ratio 0.6L Current Medications Medications (Trade) Dose Ordered Sig/Kiet Route PRN Reason Start Time Stop Time Status Last Admin Dose Admin Acetaminophen (Tylenol) 650 mg Q4H PRN GT Mild Pain/Temp > 100.5 03/07/17 22:45 04/06/17 22:44 Artificial Tears (Akwa-Tears) 1 drop Q12H PRN BOTH EYES Dry Eyes 03/04/17 08:15 04/03/17 07:14 Ascorbic Acid (Vitamin C) 500 mg DAILY GT 03/04/17 09:00 04/03/17 08:59 03/08/17 08:19 Bisacodyl (Dulcolax) 10 mg DAILY PRN RECTAL Constipation 03/04/17 08:15 04/03/17 08:14 Carvedilol (Coreg) 3.125 mg TWICE A DAY GT 03/04/17 09:00 04/03/17 08:59 03/08/17 08:19 Collagenase (Santyl) 1 applic DAILY TOPIC 03/07/17 09:00 04/06/17 08:59 03/08/17 08:19 Dextrose (Dextrose 50%) STAT PRN IV Hypoglycemia 03/04/17 07:15 04/03/17 07:14 Digoxin (Lanoxin) 0.125 mg DAILY GT 03/04/17 09:00 04/03/17 08:59 03/08/17 08:19 Furosemide (Lasix) 20 mg TWICE A DAY GT 03/04/17 09:00 04/03/17 08:59 03/08/17 08:18 Insulin Aspart (NovoLOG) Q6HR SUBQ 03/06/17 00:00 04/05/17 00:00 03/08/17 05:28 Lansoprazole (Prevacid) 30 mg DAILY GT 03/04/17 09:00 04/03/17 08:59 03/08/17 08:19 Meropenem/Sodium Chloride (Merrem/Sodium Chloride) 110 ml @ 220 mls/hr Q8HR@0600,1400,2200 IVPB 03/06/17 14:30 03/11/17 14:29 03/08/17 05:25 Rivaroxaban 15 mg 15 mg BID ORAL 03/06/17 10:00 04/05/17 09:59 03/08/17 08:19 Sucralfate (Carafate) 1 gm AC+HS GT 03/04/17 11:30 04/03/17 11:29 03/08/17 05:31 Vancomycin HCl (Vanco rx to dose) 1 ea DAILY PRN MISC Per rx protocol 03/04/17 06:45 04/03/17 06:44 Vancomycin HCl 750 mg/Dextrose 275 ml @ 183.708 mls/hr Q12HR@1100,2300 IVPB 03/06/17 11:00 03/09/17 10:59 03/07/17 23:30 MARGAERTH VALENTINE March 08, 2017 08:33
--- NOTE | 2017-03-08 09:15 | General Progress Note ---
Assessment/Plan Problem List: (1) Respiratory distress ICD Codes: R06.00 - Dyspnea, unspecified SNOMED: 035609402 (2) Pneumonia ICD Codes: J18.9 - Pneumonia, unspecified organism SNOMED: 538529374, 14133136 (3) Dyspnea ICD Codes: R06.00 - Dyspnea, unspecified SNOMED: 819981399 (4) UTI (urinary tract infection) ICD Codes: N39.0 - Urinary tract infection, site not specified SNOMED: 14569716, 35724540 (5) Hypoxia ICD Codes: R09.02 - Hypoxemia SNOMED: 326770935, 91621464 Status: stable Assessment/Plan iv abx per id follow up cultures resp care/sucitoning vent monitor cxr/bnp consider diuresis tylenol for fever repeat labs in am gt feeds wound care dvt/stress ulcer prophylaxis. Subjective ROS Limited/Unobtainable: No Constitutional: Reports: malaise, weakness HEENT: Reports: no symptoms Cardiovascular: Reports: no symptoms Respiratory: Reports: cough, shortness of breath Gastrointestinal/Abdominal: Reports: difficulty swallowing Genitourinary: Reports: no symptoms Neurologic/Psychiatric: Reports: pre-existing deficit Endocrine: Reports: no symptoms Hematologic/Lymphatic: Reports: anemia Allergies: Coded Allergies: No Known Allergies (Unverified , 02/04/17) All Systems: reviewed and negative except above Subjective no fevers. alert. nods to questions. cxr noted-chf vs bilateral pna. sputum with gnr. on the vent. decrease h/h noted. on iv abx. bnp pending. Objective Last 24 Hour Vital Signs Date Time Temp Pulse Resp B/P Pulse Ox O2 Delivery O2 Flow Rate FiO2 03/08/17 08:46 83 20 40 03/08/17 08:19 74 03/08/17 08:19 74 124/71 03/08/17 08:00 15.0 40 03/08/17 06:44 94 20 40 03/08/17 05:09 100 18 40 03/08/17 04:00 15.0 40 03/08/17 04:00 80 03/08/17 04:00 98.0 80 19 115/60 97 Mechanical Ventilator 03/08/17 03:00 72 17 40 03/08/17 01:12 73 20 40 03/08/17 00:21 97.9 85 18 111/54 98 Mechanical Ventilator 03/08/17 00:00 77 03/08/17 00:00 15.0 40 03/07/17 23:29 72 20 40 03/07/17 21:25 76 20 40 03/07/17 20:30 98.1 03/07/17 20:30 98.1 03/07/17 20:00 100.0 72 19 106/58 98 Mechanical Ventilator 03/07/17 20:00 71 03/07/17 20:00 15.0 40 03/07/17 19:25 72 21 40 03/07/17 17:51 111/71 03/07/17 16:46 77 24 40 03/07/17 16:00 15.0 40 03/07/17 16:00 99.5 78 21 111/71 98 Mechanical Ventilator 40 03/07/17 16:00 78 03/07/17 14:32 70 20 40 03/07/17 12:38 75 22 40 03/07/17 12:00 63 03/07/17 12:00 98.9 81 21 118/72 98 Mechanical Ventilator 40 03/07/17 12:00 15.0 40 03/07/17 10:38 63 23 40 03/07/17 09:29 83 03/07/17 09:29 83 124/80 Intake and Output 03/07/17 03/08/17 19:00 07:00 Intake Total 440 ml 1237.4 ml Output Total 1000 ml 700 ml Balance -560 ml 537.4 ml Intake Free Water 100 ml IV Total 385 ml 477.4 ml Tube Feeding 55 ml 660 ml Output Urine Total 1000 ml 700 ml # Voids 1 # Bowel Movements 4 2 Laboratory Tests 03/07/17 22:10: Vancomycin Level Trough 15.3H 03/08/17 03:45: White Blood Count 10.8, Red Blood Count 2.61L, Hemoglobin 7.9L, Hematocrit 24.4L , Mean Corpuscular Volume 93, Mean Corpuscular Hemoglobin 30.4, Mean Corpuscular Hemoglobin Concent 32.6, Red Cell Distribution Width 17.2H, Platelet Count 134L, Mean Platelet Volume 6.3L, Neutrophils (%) (Auto) , Lymphocytes (%) (Auto) , Monocytes (%) (Auto) , Eosinophils (%) (Auto) , Basophils (%) (Auto) , Differential Total Cells Counted 100, Neutrophils % ( Manual) 91H, Lymphocytes % (Manual) 5L, Monocytes % (Manual) 4, Eosinophils % ( Manual) 0, Basophils % (Manual) 0, Band Neutrophils 0, Platelet Estimate DecreasedL, Platelet Morphology Normal, Hypochromasia 1+, Anisocytosis 1+, Sodium Level 131L, Potassium Level 4.0, Chloride Level 90L, Carbon Dioxide Level 35H, Anion Gap 6, Blood Urea Nitrogen 20, Creatinine 0.3L, Estimat Glomerular Filtration Rate , Glucose Level 110H, Calcium Level 8.0L, Total Bilirubin 0.7, Aspartate Amino Transf (AST/SGOT) 23, Alanine Aminotransferase ( ALT/SGPT) 17, Alkaline Phosphatase 94, Pro-B-Type Natriuretic Peptide [Pending] , Total Protein 5.8L, Albumin 2.2L, Globulin 3.6, Albumin/Globulin Ratio 0.6L Height (Feet): 6 Height (Inches): 1.00 Weight (Pounds): 185 Objective General Appearance: WD/WN, lethargic, confused Neck: supple Cardiovascular: normal rate, regular rhythm Respiratory/Chest: rhonchi - bilaterally Edema: no edema noted Arm (L), no edema noted Arm (R), no edema noted Leg (L), no edema noted Leg (R), no edema noted Pedal (L), no edema noted Pedal (R), no edema noted Generalized KAPIL ALVARADO March 08, 2017 09:14
[2017-03-08] MEDS: Vancomycin 750 MG in D5W 275 ML IVPB SCH ×2 (10:16→23:55)
--- NOTE | 2017-03-08 11:57 | Infectious Diseases Prog Note ---
Assessment/Plan Assessment/Plan antibiotics : vancomycin iv, meropenem A 1. klebsiella UTI 2. pneumonia 3. respiratory failure 4. CHF P 1. continue vancomycin iv, meropenem 2. will follow up cultures Subjective ROS Limited/Unobtainable: Yes Allergies: Coded Allergies: No Known Allergies (Unverified , 02/04/17) Objective Vital Signs Last 24 Hour Vital Signs Date Time Temp Pulse Resp B/P Pulse Ox O2 Delivery O2 Flow Rate FiO2 03/08/17 10:35 71 22 40 03/08/17 08:46 83 20 40 03/08/17 08:19 74 03/08/17 08:19 74 124/71 03/08/17 08:00 68 03/08/17 08:00 99.7 74 21 124/71 98 Mechanical Ventilator 40 03/08/17 08:00 15.0 40 03/08/17 06:44 94 20 40 03/08/17 05:09 100 18 40 03/08/17 04:00 15.0 40 03/08/17 04:00 80 03/08/17 04:00 98.0 80 19 115/60 97 Mechanical Ventilator 03/08/17 03:00 72 17 40 03/08/17 01:12 73 20 40 03/08/17 00:21 97.9 85 18 111/54 98 Mechanical Ventilator 03/08/17 00:00 77 03/08/17 00:00 15.0 40 03/07/17 23:29 72 20 40 03/07/17 21:25 76 20 40 03/07/17 20:30 98.1 03/07/17 20:30 98.1 03/07/17 20:00 100.0 72 19 106/58 98 Mechanical Ventilator 03/07/17 20:00 71 03/07/17 20:00 15.0 40 03/07/17 19:25 72 21 40 03/07/17 17:51 111/71 03/07/17 16:46 77 24 40 03/07/17 16:00 15.0 40 03/07/17 16:00 99.5 78 21 111/71 98 Mechanical Ventilator 40 03/07/17 16:00 78 03/07/17 14:32 70 20 40 03/07/17 12:38 75 22 40 03/07/17 12:00 63 5/2/17 12:00 98.9 81 21 118/72 98 Mechanical Ventilator 40 03/07/17 12:00 15.0 40 Height (Feet): 6 Height (Inches): 1.00 Weight (Pounds): 185 HEENT: status post trach Respiratory/Chest: lungs clear Cardiovascular: normal rate, regular rhythm, no gallop/murmur Abdomen: soft, non tender, other - GT Extremities: no edema Laboratory Tests Test 03/07/17 22:10 03/08/17 03:45 Vancomycin Level Trough 15.3 ug/mL (5.0-12.0) H White Blood Count 10.8 K/UL (4.8-10.8) Red Blood Count 2.61 M/UL (4.70-6.10) L Hemoglobin 7.9 G/DL (14.2-18.0) L Hematocrit 24.4 % (42.0-52.0) L Mean Corpuscular Volume 93 FL (80-99) Mean Corpuscular Hemoglobin 30.4 PG (27.0-31.0) Mean Corpuscular Hemoglobin Concent 32.6 G/DL (32.0-36.0) Red Cell Distribution Width 17.2 % (11.6-14.8) H Platelet Count 134 K/UL (150-450) L Mean Platelet Volume 6.3 FL (6.5-10.1) L Neutrophils (%) (Auto) % (45.0-75.0) Lymphocytes (%) (Auto) % (20.0-45.0) Monocytes (%) (Auto) % (1.0-10.0) Eosinophils (%) (Auto) % (0.0-3.0) Basophils (%) (Auto) % (0.0-2.0) Differential Total Cells Counted 100 Neutrophils % (Manual) 91 % (45-75) H Lymphocytes % (Manual) 5 % (20-45) L Monocytes % (Manual) 4 % (1-10) Eosinophils % (Manual) 0 % (0-3) Basophils % (Manual) 0 % (0-2) Band Neutrophils 0 % (0-8) Platelet Estimate Decreased L Platelet Morphology Normal Hypochromasia 1+ Anisocytosis 1+ Sodium Level 131 mEQ/L (135-145) L Potassium Level 4.0 mEQ/L (3.4-4.9) Chloride Level 90 mEQ/L (98-107) L Carbon Dioxide Level 35 mEQ/L (20-30) H Anion Gap 6 (5-15) Blood Urea Nitrogen 20 mg/dL (7-23) Creatinine 0.3 mg/dL (0.7-1.2) L Estimat Glomerular Filtration Rate mL/min (>60) Glucose Level 110 mg/dL (74-106) H Calcium Level 8.0 mg/dL (8.6-10.2) L Total Bilirubin 0.7 mg/dL (0.0-1.2) Aspartate Amino Transf (AST/SGOT) 23 U/L (5-40) Alanine Aminotransferase (ALT/SGPT) 17 U/L (3-41) Alkaline Phosphatase 94 U/L (40-129) Pro-B-Type Natriuretic Peptide 3629 pg/mL (0-125) H Total Protein 5.8 g/dL (6.6-8.7) L Albumin 2.2 g/dL (3.5-5.2) L Globulin 3.6 g/dL Albumin/Globulin Ratio 0.6 (1.0-2.7) L SALONI GAMA March 08, 2017 11:57
[2017-03-08 12:00] VITALS: BP 112/75
[2017-03-08 16:00] VITALS: BP 115/71
[2017-03-08 20:00] VITALS: BP 123/74
[2017-03-09] VITALS: BP 126/77
[2017-03-09 04:00] VITALS: BP 119/67
[2017-03-09] MEDS: Sucralfate 1gm tab GT SCH ×2 (06:20→12:11)
[2017-03-09] MEDS: NovoLOG Insulin Flexpen SUBQ SCH ×3 (06:20→12:12)
[2017-03-09] MEDS: Meropenem 1gm/NS 110ml IVPB SCH ×2 (06:20)
[2017-03-09 08:00] VITALS: BP 121/77
--- NOTE | 2017-03-09 08:17 | Pulmonology Progress Note ---
Assessment/Plan Assessment/Plan 1. Chronic respiratory failure. 2. History of spinal cord injury. 3. Congestive heart failure. 4. Pneumonia 5. Sepsis. 6. Urinary tract infection. 7. Functional quadriplegia. 8. PE 9. anemia PLAN IV antibiotics per ID- complete at snf transfuse check BNP; elevated; on lasix- will follow up after dc respiratory care monitor congestion oxygen and monitor needs nutrition wound care recheck chest xr after dc stabilize ventilatory support as is guarded dc planning today monitor HH Subjective ROS Limited/Unobtainable: Yes Allergies: Coded Allergies: No Known Allergies (Unverified , 02/04/17) Subjective care noted anemic s/p transfusion Objective Last 24 Hour Vital Signs Date Time Temp Pulse Resp B/P Pulse Ox O2 Delivery O2 Flow Rate FiO2 03/09/17 06:52 71 21 40 03/09/17 05:25 69 16 40 03/09/17 04:00 15.0 40 03/09/17 04:00 97.8 87 18 119/67 99 Mechanical Ventilator 40 03/09/17 04:00 64 03/09/17 03:08 71 19 40 03/09/17 01:19 66 18 40 03/09/17 00:00 97.6 76 18 126/77 99 Mechanical Ventilator 40 03/09/17 00:00 15.0 40 03/09/17 00:00 79 03/08/17 23:05 73 18 40 03/08/17 21:03 71 18 40 03/08/17 20:16 68 23 40 03/08/17 20:00 78 03/08/17 20:00 15.0 40 03/08/17 20:00 97.0 70 18 123/74 99 Mechanical Ventilator 40 03/08/17 18:20 99.0 03/08/17 17:51 75 115/71 03/08/17 16:57 75 21 40 03/08/17 16:00 15.0 40 03/08/17 16:00 100.8 66 22 115/71 98 Mechanical Ventilator 40 03/08/17 16:00 73 03/08/17 14:34 78 21 40 03/08/17 12:56 74 23 40 03/08/17 12:00 75 03/08/17 12:00 98.4 73 17 112/75 99 Mechanical Ventilator 40 03/08/17 12:00 15.0 40 03/08/17 10:35 71 22 40 03/08/17 08:46 83 20 40 03/08/17 08:19 74 03/08/17 08:19 74 124/71 Intake and Output 03/08/17 03/09/17 19:00 07:00 Intake Total 1635.000 ml 1095 ml Output Total 800 ml 950 ml Balance 835.000 ml 145 ml IV Total 385.000 ml 385 ml Tube Feeding 660 ml 660 ml Blood Product 500 ml Other 90 ml 50 ml Output Urine Total 800 ml 950 ml # Bowel Movements 5 2 Objective GENERAL: The patient is a thin, chronically ill-appearing male, in no apparent distress. HEART: Regular rate and rhythm. LUNGS: scattered rhonchi . ABDOMEN: Soft, nontender, and nondistended. EXTREMITIES: Without clubbing or cyanosis. skin: stage IV sacral wound noted. Current Medications Medications (Trade) Dose Ordered Sig/Kiet Route PRN Reason Start Time Stop Time Status Last Admin Dose Admin Acetaminophen (Tylenol) 650 mg Q4H PRN GT Mild Pain/Temp > 100.5 03/07/17 22:45 04/06/17 22:44 03/08/17 17:51 Artificial Tears (Akwa-Tears) 1 drop Q12H PRN BOTH EYES Dry Eyes 03/04/17 08:15 04/03/17 07:14 Ascorbic Acid (Vitamin C) 500 mg DAILY GT 03/04/17 09:00 04/03/17 08:59 03/08/17 08:19 Bisacodyl (Dulcolax) 10 mg DAILY PRN RECTAL Constipation 03/04/17 08:15 04/03/17 08:14 Carvedilol (Coreg) 3.125 mg TWICE A DAY GT 03/04/17 09:00 04/03/17 08:59 03/08/17 17:51 Collagenase (Santyl) 1 applic DAILY TOPIC 03/07/17 09:00 04/06/17 08:59 03/08/17 08:19 Dextrose (Dextrose 50%) STAT PRN IV Hypoglycemia 03/04/17 07:15 04/03/17 07:14 Digoxin (Lanoxin) 0.125 mg DAILY GT 03/04/17 09:00 04/03/17 08:59 03/08/17 08:19 Furosemide (Lasix) 20 mg TWICE A DAY GT 03/04/17 09:00 04/03/17 08:59 03/08/17 17:51 Insulin Aspart (NovoLOG) Q6HR SUBQ 03/06/17 00:00 04/05/17 00:00 03/09/17 06:20 Lansoprazole (Prevacid) 30 mg DAILY GT 03/04/17 09:00 04/03/17 08:59 03/08/17 08:19 Meropenem/Sodium Chloride (Merrem/Sodium Chloride) 110 ml @ 220 mls/hr Q8HR@0600,1400,2200 IVPB 03/06/17 14:30 03/11/17 14:29 03/09/17 06:20 Rivaroxaban 15 mg 15 mg BID ORAL 03/06/17 10:00 04/05/17 09:59 03/08/17 17:51 Sucralfate (Carafate) 1 gm AC+HS GT 03/04/17 11:30 04/03/17 11:29 03/09/17 06:20 Vancomycin HCl (Vanco rx to dose) 1 ea DAILY PRN MISC Per rx protocol 03/04/17 06:45 04/03/17 06:44 Vancomycin HCl 750 mg/Dextrose 275 ml @ 183.708 mls/hr Q12HR@1100,2300 IVPB 03/06/17 11:00 03/13/17 10:59 03/08/17 23:55 MARGARETH VALENTINE March 09, 2017 08:17
--- NOTE | 2017-03-09 08:41 | Diagnostic Imaging Report ---
Indication: SOB Technique: One view of the chest Comparison: 03/07/2017 Findings: Bilateral pleural effusions are again demonstrated. The heart is enlarged. There is a left chest pacemaker. Tracheostomy remains. Impression: Unchanged, over one day, findings as above.
[2017-03-09] MEDS: Ascorbic Acid 500mg tab GT SCH (09:15)
[2017-03-09] MEDS: Digoxin 0.125mg tab GT SCH (09:16)
[2017-03-09] MEDS: Xarelto 15mg tab ORAL SCH (09:16)
[2017-03-09 09:23] LABS: ALANINE AMINOTRANSFERASE 31 U/L (3-41); ALBUMIN/GLOBULIN RATIO 0.7 (1.0-2.7); ANION GAP 8 (5-15); ASPARTATE AMINO TRANSFERASE 39 U/L (5-40); CARBON DIOXIDE 35 mEQ/L (20-30); CHLORIDE 92 mEQ/L (98-107); CREATININE 0.3 mg/dL (0.7-1.2); HEMOLYSIS 1; MAGNESIUM 1.9 mg/dL (1.7-2.5); POTASSIUM 4.2 mEQ/L (3.4-4.9); SODIUM 135 mEQ/L (135-145)
[2017-03-09 09:31] LABS: BASOPHILS % (AUTO) 0.7 % (0.0-2.0); EOSINOPHILS % (AUTO) 2.5 % (0.0-3.0); LYMPHOCYTES % (AUTO) 5.2 % (20.0-45.0); MEAN CORPUSCULAR HGB CONC 34.7 G/DL (32.0-36.0); MEAN CORPUSCULAR VOLUME 95 FL (80-99); MEAN PLATELET VOLUME 7.1 FL (6.5-10.1); MONOCYTES % (AUTO) 7.2 % (1.0-10.0); NEUTROPHILS % (AUTO) 84.3 % (45.0-75.0); PLATELET COUNT 118 K/UL (150-450); RED BLOOD COUNT 3.24 M/UL (4.70-6.10); RED CELL DISTRIBUTION WIDTH 16.5 % (11.6-14.8); WHITE BLOOD COUNT 10.1 K/UL (4.8-10.8)
[2017-03-09] MEDS: Vancomycin 750 MG in D5W 275 ML IVPB SCH (11:24)
[2017-03-09 12:00] VITALS: BP 126/72
--- NOTE | 2017-03-09 13:09 | Infectious Diseases Prog Note ---
Assessment/Plan Assessment/Plan A 1. klebsiella UTI 2. pneumonia 3. respiratory failure, on ventilator 4. CHF P 1. continue vancomycin iv, meropenem 2. will follow up cultures Subjective ROS Limited/Unobtainable: Yes Musculoskeletal: Reports: no symptoms Allergies: Coded Allergies: No Known Allergies (Unverified , 02/04/17) Objective Vital Signs Last 24 Hour Vital Signs Date Time Temp Pulse Resp B/P Pulse Ox O2 Delivery O2 Flow Rate FiO2 03/09/17 12:56 74 18 40 03/09/17 12:00 97.9 71 20 126/72 99 Mechanical Ventilator 40 03/09/17 12:00 40 03/09/17 10:32 70 17 40 03/09/17 09:16 86 03/09/17 09:15 86 121/77 03/09/17 09:05 73 19 40 03/09/17 08:00 40 03/09/17 08:00 97.9 86 18 121/77 99 Mechanical Ventilator 40 03/09/17 07:34 77 03/09/17 06:52 71 21 40 03/09/17 05:25 69 16 40 03/09/17 04:00 15.0 40 03/09/17 04:00 97.8 87 18 119/67 99 Mechanical Ventilator 40 03/09/17 04:00 64 03/09/17 03:08 71 19 40 03/09/17 01:19 66 18 40 03/09/17 00:00 97.6 76 18 126/77 99 Mechanical Ventilator 40 03/09/17 00:00 15.0 40 03/09/17 00:00 79 03/08/17 23:05 73 18 40 03/08/17 21:03 71 18 40 03/08/17 20:16 68 23 40 03/08/17 20:00 78 03/08/17 20:00 15.0 40 03/08/17 20:00 97.0 70 18 123/74 99 Mechanical Ventilator 40 03/08/17 18:20 99.0 03/08/17 17:51 75 115/71 03/08/17 16:57 75 21 40 03/08/17 16:00 15.0 40 03/08/17 16:00 100.8 66 22 115/71 98 Mechanical Ventilator 40 03/08/17 16:00 73 03/08/17 14:34 78 21 40 Height (Feet): 6 Height (Inches): 1.00 Weight (Pounds): 185 General Appearance: no acute distress HEENT: status post trach Respiratory/Chest: rhonchi - bilaterally, other - on venilaor Cardiovascular: normal rate, pacemaker/AICD Abdomen: soft, non tender, other - tube feeding Extremities: no edema Neurologic/Psychiatric: alert, responsive Laboratory Tests Test 03/09/17 08:30 White Blood Count 10.1 K/UL (4.8-10.8) Red Blood Count 3.24 M/UL (4.70-6.10) L Hemoglobin 10.7 G/DL (14.2-18.0) #L Hematocrit 30.8 % (42.0-52.0) L Mean Corpuscular Volume 95 FL (80-99) Mean Corpuscular Hemoglobin 33.0 PG (27.0-31.0) H Mean Corpuscular Hemoglobin Concent 34.7 G/DL (32.0-36.0) Red Cell Distribution Width 16.5 % (11.6-14.8) H Platelet Count 118 K/UL (150-450) L Mean Platelet Volume 7.1 FL (6.5-10.1) Neutrophils (%) (Auto) 84.3 % (45.0-75.0) H Lymphocytes (%) (Auto) 5.2 % (20.0-45.0) L Monocytes (%) (Auto) 7.2 % (1.0-10.0) Eosinophils (%) (Auto) 2.5 % (0.0-3.0) Basophils (%) (Auto) 0.7 % (0.0-2.0) Sodium Level 135 mEQ/L (135-145) Potassium Level 4.2 mEQ/L (3.4-4.9) Chloride Level 92 mEQ/L (98-107) L Carbon Dioxide Level 35 mEQ/L (20-30) H Anion Gap 8 (5-15) Blood Urea Nitrogen 20 mg/dL (7-23) Creatinine 0.3 mg/dL (0.7-1.2) L Estimat Glomerular Filtration Rate mL/min (>60) Glucose Level 121 mg/dL (74-106) H Calcium Level 8.0 mg/dL (8.6-10.2) L Magnesium Level 1.9 mg/dL (1.7-2.5) Total Bilirubin 0.6 mg/dL (0.0-1.2) Aspartate Amino Transf (AST/SGOT) 39 U/L (5-40) Alanine Aminotransferase (ALT/SGPT) 31 U/L (3-41) Alkaline Phosphatase 74 U/L (40-129) Total Protein 6.0 g/dL (6.6-8.7) L Albumin 2.5 g/dL (3.5-5.2) L Globulin 3.5 g/dL Albumin/Globulin Ratio 0.7 (1.0-2.7) L Current Medications Medications (Trade) Dose Ordered Sig/Kiet Route PRN Reason Start Time Stop Time Status Last Admin Dose Admin Acetaminophen (Tylenol) 650 mg Q4H PRN GT Mild Pain/Temp > 100.5 03/07/17 22:45 04/06/17 22:44 03/08/17 17:51 Artificial Tears (Akwa-Tears) 1 drop Q12H PRN BOTH EYES Dry Eyes 03/04/17 08:15 04/03/17 07:14 Ascorbic Acid (Vitamin C) 500 mg DAILY GT 03/04/17 09:00 04/03/17 08:59 03/09/17 09:15 Bisacodyl (Dulcolax) 10 mg DAILY PRN RECTAL Constipation 03/04/17 08:15 04/03/17 08:14 Carvedilol (Coreg) 3.125 mg TWICE A DAY GT 03/04/17 09:00 04/03/17 08:59 03/09/17 09:15 Collagenase (Santyl) 1 applic DAILY TOPIC 03/07/17 09:00 04/06/17 08:59 03/09/17 12:10 Dextrose (Dextrose 50%) STAT PRN IV Hypoglycemia 03/04/17 07:15 04/03/17 07:14 Digoxin (Lanoxin) 0.125 mg DAILY GT 03/04/17 09:00 04/03/17 08:59 03/09/17 09:16 Furosemide (Lasix) 20 mg TWICE A DAY GT 03/04/17 09:00 04/03/17 08:59 03/09/17 09:17 Insulin Aspart (NovoLOG) Q6HR SUBQ 03/06/17 00:00 04/05/17 00:00 03/09/17 12:12 Lansoprazole (Prevacid) 30 mg DAILY GT 03/04/17 09:00 04/03/17 08:59 03/09/17 09:16 Meropenem/Sodium Chloride (Merrem/Sodium Chloride) 110 ml @ 220 mls/hr Q8HR@0600,1400,2200 IVPB 03/06/17 14:30 03/11/17 14:29 03/09/17 06:20 Rivaroxaban 15 mg 15 mg BID ORAL 03/06/17 10:00 04/05/17 09:59 03/09/17 09:16 Sucralfate (Carafate) 1 gm AC+HS GT 03/04/17 11:30 04/03/17 11:29 03/09/17 12:11 Vancomycin HCl (Vanco rx to dose) 1 ea DAILY PRN MISC Per rx protocol 03/04/17 06:45 04/03/17 06:44 Vancomycin HCl 750 mg/Dextrose 275 ml @ 183.708 mls/hr Q12HR@1100,2300 IVPB 03/06/17 11:00 03/13/17 10:59 03/09/17 11:24 HELENA KIM March 09, 2017 13:09
--- NOTE | 2017-03-09 13:36 | General Progress Note ---
Assessment/Plan Problem List: (1) Respiratory distress ICD Codes: R06.00 - Dyspnea, unspecified SNOMED: 243494668 (2) Pneumonia ICD Codes: J18.9 - Pneumonia, unspecified organism SNOMED: 078429281, 35266758 (3) Dyspnea ICD Codes: R06.00 - Dyspnea, unspecified SNOMED: 515680372 (4) UTI (urinary tract infection) ICD Codes: N39.0 - Urinary tract infection, site not specified SNOMED: 65648274, 08965268 (5) Hypoxia ICD Codes: R09.02 - Hypoxemia SNOMED: 648804253, 46206081 Status: stable, progressing Assessment/Plan iv abx per id resp care/sucitoning vent monitor cxr/bnp tylenol for fever gt feeds wound care dvt/stress ulcer prophylaxis. dc planning Subjective ROS Limited/Unobtainable: No Constitutional: Reports: malaise, weakness HEENT: Reports: no symptoms Cardiovascular: Reports: no symptoms Respiratory: Reports: cough, sputum Gastrointestinal/Abdominal: Reports: difficulty swallowing Genitourinary: Reports: no symptoms Neurologic/Psychiatric: Reports: pre-existing deficit Endocrine: Reports: no symptoms Hematologic/Lymphatic: Reports: anemia Allergies: Coded Allergies: No Known Allergies (Unverified , 02/04/17) All Systems: reviewed and negative except above Subjective no fevers. alert. nods to questions. denies cp/sob. on iv abx. Objective Last 24 Hour Vital Signs Date Time Temp Pulse Resp B/P Pulse Ox O2 Delivery O2 Flow Rate FiO2 03/09/17 12:56 74 18 40 03/09/17 12:00 97.9 71 20 126/72 99 Mechanical Ventilator 40 03/09/17 12:00 40 03/09/17 10:32 70 17 40 03/09/17 09:16 86 03/09/17 09:15 86 121/77 03/09/17 09:05 73 19 40 03/09/17 08:00 40 03/09/17 08:00 97.9 86 18 121/77 99 Mechanical Ventilator 40 03/09/17 07:34 77 03/09/17 06:52 71 21 40 03/09/17 05:25 69 16 40 03/09/17 04:00 15.0 40 03/09/17 04:00 97.8 87 18 119/67 99 Mechanical Ventilator 40 03/09/17 04:00 64 03/09/17 03:08 71 19 40 03/09/17 01:19 66 18 40 03/09/17 00:00 97.6 76 18 126/77 99 Mechanical Ventilator 40 03/09/17 00:00 15.0 40 03/09/17 00:00 79 03/08/17 23:05 73 18 40 03/08/17 21:03 71 18 40 03/08/17 20:16 68 23 40 03/08/17 20:00 78 03/08/17 20:00 15.0 40 03/08/17 20:00 97.0 70 18 123/74 99 Mechanical Ventilator 40 03/08/17 18:20 99.0 03/08/17 17:51 75 115/71 03/08/17 16:57 75 21 40 03/08/17 16:00 15.0 40 03/08/17 16:00 100.8 66 22 115/71 98 Mechanical Ventilator 40 03/08/17 16:00 73 03/08/17 14:34 78 21 40 Intake and Output 03/08/17 03/09/17 19:00 07:00 Intake Total 1635.000 ml 1095 ml Output Total 800 ml 950 ml Balance 835.000 ml 145 ml IV Total 385.000 ml 385 ml Tube Feeding 660 ml 660 ml Blood Product 500 ml Other 90 ml 50 ml Output Urine Total 800 ml 950 ml # Bowel Movements 5 2 Laboratory Tests 03/09/17 08:30: White Blood Count 10.1, Red Blood Count 3.24L, Hemoglobin 10.7#L, Hematocrit 30.8L, Mean Corpuscular Volume 95, Mean Corpuscular Hemoglobin 33.0H, Mean Corpuscular Hemoglobin Concent 34.7, Red Cell Distribution Width 16.5H, Platelet Count 118L, Mean Platelet Volume 7.1, Neutrophils (%) (Auto) 84.3H, Lymphocytes (%) (Auto) 5.2L, Monocytes (%) (Auto) 7.2, Eosinophils (%) (Auto) 2.5, Basophils (%) (Auto) 0.7, Sodium Level 135, Potassium Level 4.2, Chloride Level 92L, Carbon Dioxide Level 35H, Anion Gap 8, Blood Urea Nitrogen 20, Creatinine 0.3L, Estimat Glomerular Filtration Rate , Glucose Level 121H, Calcium Level 8.0L, Magnesium Level 1.9, Total Bilirubin 0.6, Aspartate Amino Transf (AST/SGOT) 39, Alanine Aminotransferase (ALT/SGPT) 31, Alkaline Phosphatase 74, Total Protein 6.0L, Albumin 2.5L, Globulin 3.5, Albumin/ Globulin Ratio 0.7L Height (Feet): 6 Height (Inches): 1.00 Weight (Pounds): 185 Objective General Appearance: WD/WN, lethargic, confused Neck: supple Cardiovascular: normal rate, regular rhythm Respiratory/Chest: rhonchi - bilaterally Edema: no edema noted Arm (L), no edema noted Arm (R), no edema noted Leg (L), no edema noted Leg (R), no edema noted Pedal (L), no edema noted Pedal (R), no edema noted Generalized KAPIL ALVARADO March 09, 2017 13:36
[2017-03-09] MEDS ORDERED: Sterile Water Irrig 1000ml IRRIG ONE (13:44)
[2017-03-09] MEDS ORDERED: NS 275ml ONE (13:44)
--- NOTE | 2017-03-10 12:52 | Discharge Summary ---
Discharge Summary Hospital Course Date of Admission Mar 03, 2017 at 23:58 Date of Discharge March 09, 2017 at 13:45 Admitting Diagnosis dyspnea, tracheostomy HPI Padmini Martinez is a 72 year old male who was admitted on Mar 03, 2017 at 23:58 for Dyspnea,Tracheostomy Hospital Course [id number] Discharge Discharge Disposition Patient was discharged to SNF/Subacute Facility(03) Discharge Diagnoses: Zina Dior NP March 10, 2017 12:52
--- NOTE | 2017-03-11 06:08 | Discharge Summary 2 SIG ---
DATE OF ADMISSION: 03/03/2017 DATE OF DISCHARGE: 03/09/2017 CONSULTANTS: 1. Praveen Gold M.D. 2. Livan Dallas M.D. BRIEF HOSPITAL COURSE: The patient is a 72-year-old male with history of chronic respiratory failure, spinal cord injury, anemia, and CHF presented from residential facility with hypoxemia and shortness of breath. The patient was noted to be hypoxic with low oxygen saturation in the 80s. He was suctioned and was given breathing treatment, but still did not improve. He was taken to the emergency department and on evaluation, x-ray showed evidence of pneumonia. He was pancultured and was started on broad-spectrum antibiotics and was admitted for further care. He was given respiratory treatment and ventilatory support. He was followed by Dr. Dallas from Infectious Disease specialist and the patient was given vancomycin and meropenem. Culture showed Klebsiella pneumoniae ESBL in urine. Wound culture showed Klebsiella ESBL and Morganella. He came in with stage IV/unstageable pressure ulcer on the sacral, left ischial tuberosity and right lower lateral leg. Wound care was rendered. He was given [id number] mattress with AP-200 and with offloading off site and frequent turning and repositioning. He had an episode of acute anemia, hemoglobin went down to 7.9 and hematocrit of 24. He received two units packed RBC blood transfusion. He had episodes of cough and fever. T-max 101.7. He eventually defervesced. Leukocytosis resolved. He was then discharged to [facility] for additional 7 more days of antibiotics. FINAL DIAGNOSES: 1. Sepsis. 2. Urinary tract infection with Klebsiella. 3. Functional quadriplegia. 4. Pneumonia. 5. Acute anemia requiring transfusion. 6. Chronic respiratory failure. 7. Spinal cord injury. 8. Acute on chronic congestive heart failure, diastolic in nature. 9. Multiple decubitus pressure ulcer, stage IV present on admission. Rio Charles M.D. I have been assigned to dictate discharge summary on this account and I was not involved in the patient's management. Zina Dior N.P. DR: Kamar JOB#: [id number] CC:
== END 2017-03-09 13:45 | DRG 870 ==
LOC: EDBD 22:39 → EMR 22:56 → 2W 23:58 → EDBEDREQ 03-04 00:49 → 2W 03-04 01:57
PROC: 5A1955Z Respiratory Ventilation, Greater than 96 Consecutive Hours (ICD-10-PCS; principal; 2017-03-03)
PROC: 30233N1 Transfusion of Nonautologous Red Blood Cells into Peripheral Vein, Percutaneous Approach (ICD-10-PCS; 2017-03-08)
DX: A41.9 Sepsis, unspecified organism (principal); J18.9 Pneumonia, unspecified organism; I50.33 Acute on chronic diastolic (congestive) heart failure; Z99.11 Dependence on respirator [ventilator] status; L89.154 Pressure ulcer of sacral region, stage 4; L89.324 Pressure ulcer of left buttock, stage 4; L89.894 Pressure ulcer of other site, stage 4; R53.2 Functional quadriplegia; J96.11 Chronic respiratory failure with hypoxia; N39.0 Urinary tract infection, site not specified; Z43.1 Encounter for attention to gastrostomy; Z43.0 Encounter for attention to tracheostomy; Z98.1 Arthrodesis status; B96.1 Klebsiella pneumoniae [K. pneumoniae] as the cause of diseases classified elsewhere; D64.9 Anemia, unspecified; Z16.12 Extended spectrum beta lactamase (ESBL) resistance; T14.8 Other injury of unspecified body region; X58.XXXS Exposure to other specified factors, sequela
CPT/HCPCS: 36415; 71010; 80048; 80053; 80162; 80202; 81003; 82550; 82553; 82962; 83036; 83605; 83690; 83735; 83880; 84484; 85007; 85025; 86850; 86900; 86901; 86920; 87040; 87070; 87081; 87086; 87181; 87205; 93005; 94002; 94003; J1815

== ENCOUNTER 2017-03-26 22:46 | Inpatient (IN) | payer MEDICARE ==
[~2017-03-26] VITALS: Ht 182.9 cm; Wt 90.7 kg
[~2017-03-26 22:46] MED LIST changes: +AMIKACIN S1000 MG/4 IJ; +ARTIFICIAL TEAR15 ML BOTH EYES; +NORCO 5-325 TA1 EACH GT; +SIMETHICONE80 MG GT
--- NOTE | 2017-03-26 23:02 | Emergency Room Report ---
History of Present Illness General Chief Complaint: Dyspnea/Respdistress Source: Medical Record Present Illness HPI Patient presents by paramedics for reports of shortness of breath Patient himself is a tracheostomy is vent dependent history is not able to be obtained from the patient No reports of vomiting or diarrhea Unknown regarding fever Patient has a tracheostomy and is vent dependent, unclear regarding rash Unclear regarding specific episode Patient however was found to be short of breath and breathing faster than usual Allergies: Coded Allergies: No Known Allergies (Unverified , 02/04/17) Patient History Past Medical History: see triage record Pertinent Family History: none Reviewed Nursing Documentation: PMH: Agreed, PSxH: Agreed Nursing Documentation-PMH Hx Cardiac Problems: Yes - Thrombocytopenia, A Fib., HF, Cardiomegaly Hx Hypertension: Yes Hx Diabetes: Yes Hx Cancer: No Review of Systems All Other Systems: limited - Other than the ones mentioned in the history of present illness all others are reviewed however they do stay limited due to the patient's mental status Physical Exam Vital Signs Date Time Temp Pulse Resp B/P Pulse Ox O2 Delivery O2 Flow Rate FiO2 03/26/17 22:38 99.0 74 12 122/72 100 Trach Collar 7.0 03/26/17 22:47 40 Sp02 EP Interpretation: reviewed, normal General Appearance: no apparent distress Head: normocephalic, atraumatic Eyes: bilateral eye PERRL ENT: normal pharynx, no angioedema Neck: supple, thyroid normal, other - Tracheostomy in place no crepitus Respiratory: crackles - Diffusely in both lower lobes Cardiovascular #1: irregularly irregular Gastrointestinal: non tender, soft, other - feeding tube in place Musculoskeletal: other - Patient appears chronically debilitated, no obvious muscle tone in the extremities Neurologic: responsive - To verbal stimuli Skin: other - Edematous in the bilateral lower extremity right forearm also appears swollen Medical Decision Making Diagnostic Impression: Primary Impression: Pleural effusion Additional Impressions: Hypoxia UTI (urinary tract infection) ER Course Patient is a fairly complex patient with multiple differential to consideration including but not limited to cardiac cardiopulmonary and vascular emergencies Patient has been saturating appropriately on the ventilator X-ray imaging shows questionable worsening of the effusion on the right side There is continued evidence of the bladder infection Patient was written for pharmacy dosing antibiotic Diuretics and admitted for further care Labs Test 03/26/17 22:45 White Blood Count 8.4 K/UL (4.8-10.8) Red Blood Count 2.70 M/UL (4.70-6.10) Hemoglobin 8.2 G/DL (14.2-18.0) Hematocrit 25.3 % (42.0-52.0) Mean Corpuscular Volume 94 FL (80-99) Mean Corpuscular Hemoglobin 30.5 PG (27.0-31.0) Mean Corpuscular Hemoglobin Concent 32.6 G/DL (32.0-36.0) Red Cell Distribution Width 15.0 % (11.6-14.8) Platelet Count 124 K/UL (150-450) Mean Platelet Volume 7.2 FL (6.5-10.1) Neutrophils (%) (Auto) % (45.0-75.0) Lymphocytes (%) (Auto) % (20.0-45.0) Monocytes (%) (Auto) % (1.0-10.0) Eosinophils (%) (Auto) % (0.0-3.0) Basophils (%) (Auto) % (0.0-2.0) Prothrombin Time 12.2 SEC (9.30-11.50) Prothromb Time International Ratio 1.2 (0.9-1.1) Activated Partial Thromboplast Time 32 SEC (23-33) Urine Color Brown Urine Appearance Slightly cloudy Urine pH 5 (4.5-8.0) Urine Specific [place] 1.025 (1.005-1.035) Urine Protein 3+ (NEGATIVE) Urine Glucose (UA) Negative (NEGATIVE) Urine Ketones Negative (NEGATIVE) Urine Occult Blood 5+ (NEGATIVE) Urine Nitrite Positive (NEGATIVE) Urine Bilirubin 1+ (NEGATIVE) Urine Ictotest Urine Urobilinogen 8 MG/DL (0.0-1.0) Urine Leukocyte Esterase 3+ (NEGATIVE) Urine RBC Tntc /HPF (0 - 0) Urine WBC 60-80 /HPF (0 - 0) Urine Squamous Epithelial Cells Few /LPF (NONE/OCC) Urine Bacteria Many /HPF (NONE) Sodium Level 139 mEQ/L (135-145) Potassium Level 3.6 mEQ/L (3.4-4.9) Chloride Level 95 mEQ/L (98-107) Carbon Dioxide Level 38 mEQ/L (20-30) Anion Gap 6 (5-15) Blood Urea Nitrogen 25 mg/dL (7-23) Creatinine 0.5 mg/dL (0.7-1.2) Estimat Glomerular Filtration Rate mL/min (>60) Glucose Level 131 mg/dL (74-106) Lactic Acid Level 0.70 mmol/L (0.66-2.22) Calcium Level 8.8 mg/dL (8.6-10.2) Total Bilirubin 0.5 mg/dL (0.0-1.2) Aspartate Amino Transf (AST/SGOT) 18 U/L (5-40) Alanine Aminotransferase (ALT/SGPT) 13 U/L (3-41) Alkaline Phosphatase 83 U/L (40-129) Total Creatine Kinase 24 U/L (38-174) Creatine Kinase MB < 1.5 ng/mL (< 6.7) Troponin I < 0.30 ng/mL (<=0.30) Pro-B-Type Natriuretic Peptide 3196 pg/mL (0-125) Total Protein 6.5 g/dL (6.6-8.7) Albumin 2.8 g/dL (3.5-5.2) Globulin 3.7 g/dL Albumin/Globulin Ratio 0.7 (1.0-2.7) Lipase 38 U/L (< 60) Rhythm Strip Diag. Results EP Interpretation: yes Rate: 65 Rhythm: no PVC's, no ectopy, other - irregularly irregular Chest X-Ray Diagnostic Results EP Interpretation: Yes Findings: no pneumothorax, other - Right-sided effusion, left-sided atelectasis versus effusion, cardiomegaly Number of Views: 1 Last Vital Signs Date Time Temp Pulse Resp B/P Pulse Ox O2 Delivery O2 Flow Rate FiO2 03/26/17 22:53 79 15 40 03/26/17 22:47 Mechanical Ventilator 7.0 03/26/17 22:38 99.0 122/72 100 Status: improved Disposition: ADMITTED INPATIENT Condition: Critical FREDDIE ESTRELLA D.O. March 26, 2017 23:02
[2017-03-26 23:22] LABS: APPEARANCE,URINE SLIGHTLY CLOUDY; KETONES,URINE NEGATIVE (NEGATIVE); LEUKOCYTE ESTERASE ,URINE 3+ (NEGATIVE); NITRITE,URINE POSITIVE (NEGATIVE); PH,URINE 5 (4.5-8.0); PROTEIN,URINE 3+ (NEGATIVE); UROBILINOGEN,URINE 8 MG/DL (0.0-1.0)
[2017-03-26] MEDS ORDERED: NOVOLOG100 UNIT/3 SUBQ (23:24)
[2017-03-26] MEDS ORDERED: PRO-STAT LIQUID30 ML ORAL (23:24)
[2017-03-26] MEDS ORDERED: EQ GENTLE30 ML OP (23:24)
[2017-03-26] MEDS ORDERED: VANCOMYCIN1 GM/2502 IVPB (23:24)
[2017-03-26] MEDS ORDERED: XARELTO10 MG GT (23:24)
[2017-03-26] MEDS ORDERED: ZINC SULFATE220 M1 GT (23:24)
[2017-03-26] MEDS ORDERED: LANSOPRAZOLE30 MG GT (23:24)
[2017-03-26] MEDS ORDERED: DEXTROSE 40% IV (23:24)
[2017-03-26 23:26] LABS: INR 1.2 (0.9-1.1); PROTHROMBIN TIME 12.2 SEC (9.30-11.50)
[2017-03-26 23:31] LABS: ALANINE AMINOTRANSFERASE 13 U/L (3-41); ALBUMIN/GLOBULIN RATIO 0.7 (1.0-2.7); ANION GAP 6 (5-15); ASPARTATE AMINO TRANSFERASE 18 U/L (5-40); CALCIUM 8.8 mg/dL (8.6-10.2); CARBON DIOXIDE 38 mEQ/L (20-30); CHLORIDE 95 mEQ/L (98-107); CREATININE 0.5 mg/dL (0.7-1.2); HEMOLYSIS 3; LIPASE 38 U/L (< 60); POTASSIUM 3.6 mEQ/L (3.4-4.9); SODIUM 139 mEQ/L (135-145); TOTAL PROTEIN 6.5 g/dL (6.6-8.7); TROPONIN I < 0.30 ng/mL (<=0.30)
[2017-03-26 23:35] LABS: MEAN CORPUSCULAR HEMOGLOBIN 30.5 PG (27.0-31.0); MEAN CORPUSCULAR HGB CONC 32.6 G/DL (32.0-36.0); MEAN CORPUSCULAR VOLUME 94 FL (80-99); MEAN PLATELET VOLUME 7.2 FL (6.5-10.1); PLATELET COUNT 124 K/UL (150-450); WHITE BLOOD COUNT 8.4 K/UL (4.8-10.8)
[2017-03-26 23:42] LABS: CKMB < 1.5 ng/mL (< 6.7)
[2017-03-26 23:44] LABS: BACTERIA,URINE MANY /HPF; RBC,URINE TNTC /HPF (0 - 0); SQUAMOUS EPITHELIAL CELL,UR FEW /LPF (NONE/OCC); WBC,URINE 60-80 /HPF (0 - 0)
[2017-03-27] VITALS (10 sets, daily range): BP systolic 122–163; BP diastolic 76–95
[2017-03-27] MEDS ORDERED: Amikacin Rx to dose MISC PRN (01:15)
[2017-03-27] MEDS ORDERED: Tubing IV Cassette IV ONE (08:12)
[2017-03-27] MEDS ORDERED: Amikacin 500mg/2mL Inj ONE (08:12)
[2017-03-27] MEDS ORDERED: Acetaminophen 650 MG SUPP RECTAL PRN (08:15)
[2017-03-27 08:21] LABS: ANISOCYTOSIS 1+; BAND NEUTROPHILS % (MANUAL) 0 % (0-8); BASOPHILS % (MANUAL) 0 % (0-2); EOSINOPHILS % (MANUAL) 2 % (0-3); HYPOCHROMASIA 1+; LYMPHOCYTES % (MANUAL) 3 % (20-45); NEUTROPHILS % (MANUAL) 93 % (45-75); PLATELET ESTIMATE DECREASED; PLATELET MORPHOLOGY NORMAL; TOTAL CELLS COUNTED 100
[2017-03-27] MEDS ORDERED: Amikacin 1,000 MG in NS 110 ML IV ONE (08:30)
[2017-03-27] MEDS ORDERED: Artificial Tears 1.4% Op Soln BOTH EYES PRN (10:00)
--- NOTE | 2017-03-27 10:19 | Diagnostic Imaging Report ---
Indication: SOB Technique: One view of the chest Comparison: 03/08/2017 Findings: Left lateral lung base using exam. Bilateral pleural effusions persist, perhaps slightly increased on the right. Interstitial congestion persists. The heart remains enlarged. Left chest unifocal pacemaker, tracheostomy remain Impression: Bilateral right greater left pleural effusions, slightly increased from 03/08/2017 Mild interstitial congestive changes Cardiomegaly This agrees with the preliminary interpretation provided overnight by [facility] teleradiology service.
[2017-03-27] MEDS: Xarelto 10mg tab GT SCH (11:01)
[2017-03-27] MEDS: Zinc Sulfate 220mg cap GT SCH (11:01)
[2017-03-27] MEDS: Sucralfate 1gm tab GT SCH ×4 (11:03→21:22)
[2017-03-27] MEDS: Ascorbic Acid 500mg tab GT SCH (11:03)
[2017-03-27] MEDS: Digoxin 0.125mg tab GT SCH (11:04)
--- NOTE | 2017-03-27 16:34 | Diagnostic Imaging Report ---
Indication: S/P THORA postthoracentesis Technique: One view of the chest Comparison: 03/26/2017 Findings: Interim resolution of previously described right-sided pleural effusion, status post thoracentesis. No gross pneumothorax demonstrated. A left-sided pleural effusion persists. Heart remains enlarged. Tracheostomy, left chest pacemaker remain Impression: Resolved right-sided pleural effusion, status post thoracentesis. No radiographically evident complication
[2017-03-27] MEDS: Piperacillin/Tazobactam 3.375 GM in D5W 110 ML IVPB SCH ×2 (16:57→23:32)
--- NOTE | 2017-03-27 23:30 | History and Physical Report ---
DATE OF ADMISSION: 03/27/2017 CHIEF COMPLAINT: Pneumonia and sepsis. HISTORY OF PRESENT ILLNESS: The patient is a pleasant, but unfortunate 72-year-old male with a history of chronic respiratory failure. He has a history of functional quadriplegia secondary to spinal stenosis. He has a history of chronic obstructive pulmonary disease, sepsis, pleural effusion, congestive heart failure, and DVT. He was transferred from the shelter facility with complaints of hypoxemia and shortness of breath. According to the patient's son, he was well until the day prior to admission. He noted that the patient had mild shortness of breath. Symptoms improved, but when the patient's family returned the next morning, he was more dyspneic and short of breath. He apparently had an episode of altered mentation with his eyes rolled back. He was temporarily poorly responsive. He was maintained on the ventilator with otherwise normal vital signs. He was transferred to the emergency room for further evaluation. On evaluation there, the patient was alert and awake. He followed commands. His vital signs were otherwise stable. Workup at that time showed hemoglobin of 8.2 and natriuretic peptide level of 3000. Urine showed WBCs and too numerous to count RBCs. Chest x-ray showed right-sided pleural effusion, which has improved as well as left-sided pleural effusion. The patient has been started on broad-spectrum IV antibiotics. He is now admitted for further evaluation and care. PAST MEDICAL HISTORY: As above. PAST SURGICAL HISTORY: Includes neck surgery, G-tube, and tracheostomy. CURRENT MEDICATIONS: Reconciled and reviewed. ALLERGIES: None. FAMILY HISTORY: None. SOCIAL HISTORY: There is no known history of tobacco, ethanol, or drugs. The patient is DNR. REVIEW OF SYSTEMS: General: No fevers or chills. HEENT: No headaches. Cardiopulmonary: No chest pain. Mild shortness of breath. Gastrointestinal: No nausea or vomiting. Genitourinary: No urgency or frequency. Musculoskeletal: No joint pain. Neurologic: No evidence of seizures. PHYSICAL EXAMINATION: VITAL SIGNS: Temperature 98.1 degrees, pulse 65, respirations 18, and blood pressure 123/76. GENERAL: The patient is a well-developed male, in no apparent distress, and awake. NECK: Supple. Trach site was clean. There is no jugular venous distention. HEART: Regular rate and rhythm. LUNGS: Clear to auscultation bilaterally. ABDOMEN: Soft, nontender, and nondistended. EXTREMITIES: Without clubbing, cyanosis, or edema. LABORATORY DATA: White count 8, hemoglobin 8.2, and platelet count of 1.4. INR was 1.2. Sodium 139, potassium 3.6, and creatinine of 0.5. Natriuretic peptide level is 3000. UA showed 6 to 8 WBCs. ASSESSMENT: This is a pleasant, but unfortunate male with history of chronic respiratory failure, pleural effusion, deep venous thrombosis, functional quadriplegia, and chronic respiratory failure, admitted with sepsis secondary to urinary tract infection, cannot rule out the underlying pneumonia. PLAN: Continue vent support, respiratory treatments, and intravenous antibiotics. Follow up pending cultures. Pulmonary consultation. We will continue G-tube feeds. Continue wound care. Plan of care was discussed at bedside with the patient's son. Praveen Gold M.D. DR: ELTON JOB#: [id number] CC:
[2017-03-28] VITALS: BP 128/68
[2017-03-28 04:00] VITALS: BP 142/88
[2017-03-28 05:33] LABS: BASOPHILS % (AUTO) 0.4 % (0.0-2.0); EOSINOPHILS % (AUTO) 2.7 % (0.0-3.0); LYMPHOCYTES % (AUTO) 6.7 % (20.0-45.0); MEAN CORPUSCULAR HEMOGLOBIN 30.1 PG (27.0-31.0); MEAN CORPUSCULAR HGB CONC 32.6 G/DL (32.0-36.0); MEAN CORPUSCULAR VOLUME 92 FL (80-99); MEAN PLATELET VOLUME 6.8 FL (6.5-10.1); MONOCYTES % (AUTO) 6.1 % (1.0-10.0); NEUTROPHILS % (AUTO) 84.1 % (45.0-75.0); PLATELET COUNT 122 K/UL (150-450); RED BLOOD COUNT 2.99 M/UL (4.70-6.10); RED CELL DISTRIBUTION WIDTH 15.2 % (11.6-14.8)
[2017-03-28 06:08] LABS: ANION GAP 10 (5-15); CALCIUM 8.4 mg/dL (8.6-10.2); CARBON DIOXIDE 34 mEQ/L (20-30); CHLORIDE 96 mEQ/L (98-107); CREATININE 0.4 mg/dL (0.7-1.2); HEMOLYSIS 3; POTASSIUM 3.1 mEQ/L (3.4-4.9); SODIUM 140 mEQ/L (135-145)
--- NOTE | 2017-03-28 07:01 | Consultation ---
DATE OF CONSULTATION: 03/27/2017 PULMONARY CONSULTATION REASON FOR CONSULTATION: Respiratory failure. HISTORY OF PRESENT ILLNESS: This is a 72-year-old unfortunate male, who was brought in emergently by paramedics for shortness of breath. The patient is now ventilator dependent and tracheostomy dependent. The patient was admitted and evaluated in the emergency room. X-ray showing worsening effusion on the right side. The patient is now being admitted for further optimization of pulmonary care. PAST MEDICAL HISTORY: Notable for PE, atrial fibrillation, thrombocytopenia, heart failure, and cardiomegaly. MEDICATIONS: Reviewed. ALLERGIES: Reviewed. REVIEW OF SYSTEMS: Noted. The patient is mostly bedbound at present. PHYSICAL EXAMINATION: GENERAL: The patient is a well-developed male, currently ill. VITAL SIGNS: Noted and reviewed. HEENT: Negative. NECK: Supple. No adenopathy, tracheostomy in midline. Carotid 2+. LUNGS: Decreased breath sounds especially at the base. CARDIOVASCULAR: S1 and S2. Regular rate and rhythm. ABDOMEN: Soft. Nontender. EXTREMITIES: No cyanosis or clubbing. No significant edema. NEUROLOGICAL: Grossly nonfocal. LABORATORY DATA: Lab data reviewed. IMPRESSION: 1. Pleural effusion. 2. Worsening congestive heart failure. 3. Respiratory failure. 4. Respiratory distress. 5. History of pulmonary embolism. 6. History of congestive heart failure. 7. Diabetes. RECOMMENDATIONS: Resume medications from nursing facility. diurese; thoracentesis; no clear need for antibiotics. The patient's prognosis is guarded at this time and we will continue to optimize pending evaluation. Rio Charles M.D. DR: Ally JOB#: [id number] CC: TAYLOR
--- NOTE | 2017-03-28 07:41 | General Progress Note ---
Assessment/Plan Problem List: (1) Dyspnea ICD Codes: R06.00 - Dyspnea, unspecified SNOMED: 405817184 (2) Hypoxia ICD Codes: R09.02 - Hypoxemia SNOMED: 640873139, 00005345 (3) UTI (urinary tract infection) ICD Codes: N39.0 - Urinary tract infection, site not specified SNOMED: 26727731, 53353902 (4) Septicemia ICD Codes: A41.9 - Sepsis, unspecified organism SNOMED: 515596170 (5) Dyspnea and respiratory abnormalities ICD Codes: R06.00 - Dyspnea, unspecified; R06.89 - Other abnormalities of breathing SNOMED: 758811680, 977638178 (6) Pleural effusion ICD Codes: J90 - Pleural effusion, not elsewhere classified SNOMED: 60535012 (7) Respiratory distress ICD Codes: R06.00 - Dyspnea, unspecified SNOMED: 283159366 Status: stable, progressing Assessment/Plan iv abx follow up cultures vent resp rx gt feeds wound care replace k monitor cxr Subjective ROS Limited/Unobtainable: No Constitutional: Reports: malaise, weakness HEENT: Reports: no symptoms Respiratory: Reports: cough, shortness of breath Gastrointestinal/Abdominal: Reports: difficulty swallowing Neurologic/Psychiatric: Reports: pre-existing deficit Endocrine: Reports: no symptoms Hematologic/Lymphatic: Reports: anemia Allergies: Coded Allergies: No Known Allergies (Unverified , 02/04/17) All Systems: reviewed and negative except above Subjective no events. w/o complaints. less sob. family at the bedside. on the vent. on iv abx. on gt feeds. no new complaints. Objective Last 24 Hour Vital Signs Date Time Temp Pulse Resp B/P Pulse Ox O2 Delivery O2 Flow Rate FiO2 03/28/17 06:38 70 18 40 03/28/17 05:46 84 17 40 03/28/17 04:00 74 03/28/17 04:00 40 03/28/17 04:00 98.4 75 18 142/88 100 Mechanical Ventilator 40 03/28/17 03:25 72 18 40 03/28/17 01:27 66 16 40 03/28/17 00:00 40 03/28/17 00:00 98.7 65 16 128/68 100 Simple Mask 03/28/17 00:00 71 03/27/17 23:02 67 18 40 03/27/17 21:22 67 122/67 03/27/17 20:40 64 17 40 03/27/17 20:00 98.1 67 16 122/77 100 Mechanical Ventilator 40 03/27/17 20:00 40 03/27/17 20:00 66 03/27/17 17:14 68 18 40 03/27/17 16:00 98.1 65 18 123/76 100 Mechanical Ventilator 40 03/27/17 15:51 40 03/27/17 15:50 70 03/27/17 15:18 65 17 40 03/27/17 13:24 66 17 40 03/27/17 12:14 98.9 03/27/17 12:01 7.0 40 03/27/17 12:00 78 03/27/17 12:00 98.1 63 18 138/78 100 Mechanical Ventilator 40 03/27/17 11:14 70 18 40 03/27/17 11:04 79 03/27/17 11:02 79 147/89 03/27/17 10:53 100.2 03/27/17 10:00 100.2 79 18 147/89 100 Mechanical Ventilator 40 03/27/17 08:54 62 15 40 03/27/17 08:39 101.1 73 16 153/95 100 Mechanical Ventilator 7.0 40 03/27/17 08:00 101.1 73 16 153/95 100 Mechanical Ventilator 40 Intake and Output 03/27/17 03/28/17 19:00 07:00 Intake Total 255 ml 465.00 ml Output Total 3000 ml 1000 ml Balance -2745 ml -535.00 ml Intake Free Water 200 ml 300 ml IV Total 55 ml 165.00 ml Tube Feeding 0 ml Output Urine Total 1800 ml 1000 ml Other 1200 ml # Bowel Movements 1 Laboratory Tests 03/28/17 04:15: White Blood Count 8.0, Red Blood Count 2.99L, Hemoglobin 9.0L, Hematocrit 27.5L , Mean Corpuscular Volume 92, Mean Corpuscular Hemoglobin 30.1, Mean Corpuscular Hemoglobin Concent 32.6, Red Cell Distribution Width 15.2H, Platelet Count 122L, Mean Platelet Volume 6.8, Neutrophils (%) (Auto) 84.1H, Lymphocytes (%) (Auto) 6.7L, Monocytes (%) (Auto) 6.1, Eosinophils (%) (Auto) 2.7, Basophils (%) (Auto) 0.4, Sodium Level 140, Potassium Level 3.1L, Chloride Level 96L, Carbon Dioxide Level 34H, Anion Gap 10, Blood Urea Nitrogen 22, Creatinine 0.4L, Estimat Glomerular Filtration Rate , Glucose Level 128H, Calcium Level 8.4L Height (Feet): 6 Height (Inches): 0.00 Weight (Pounds): 200 General Appearance: WD/WN, alert Neck: non-tender, normal alignment, supple Cardiovascular: normal peripheral pulses, normal rate, regular rhythm Respiratory/Chest: normal breath sounds, no respiratory distress, no accessory muscle use Abdomen: normal bowel sounds, non tender, soft, no organomegaly Edema: trace edema Neurologic: motor weakness KAPIL ALVARADO March 28, 2017 07:41
[2017-03-28] MEDS ORDERED: KCl 10% 40mEq/30ml liquid NG ONE ×2 (07:45→08:15)
[2017-03-28 08:00] VITALS: BP 141/94
--- NOTE | 2017-03-28 08:17 | Pulmonology Progress Note ---
Assessment/Plan Assessment/Plan IMPRESSION: 1. Pleural effusion. 2. Worsening congestive heart failure. 3. Respiratory failure. 4. Respiratory distress. 5. History of pulmonary embolism. 6. History of congestive heart failure. 7. Diabetes. PLAN dc back to snf clinically stable nontoxic no real need for antibiotics monitor for change chest xr nearly clear Subjective Allergies: Coded Allergies: No Known Allergies (Unverified , 02/04/17) Subjective overall nontoxic nad had thoracentesis Objective Last 24 Hour Vital Signs Date Time Temp Pulse Resp B/P Pulse Ox O2 Delivery O2 Flow Rate FiO2 03/28/17 08:09 76 03/28/17 08:09 40 03/28/17 06:38 70 18 40 03/28/17 05:46 84 17 40 03/28/17 04:00 74 03/28/17 04:00 40 03/28/17 04:00 98.4 75 18 142/88 100 Mechanical Ventilator 40 03/28/17 03:25 72 18 40 03/28/17 01:27 66 16 40 03/28/17 00:00 40 03/28/17 00:00 98.7 65 16 128/68 100 Simple Mask 03/28/17 00:00 71 03/27/17 23:02 67 18 40 03/27/17 21:22 67 122/67 03/27/17 20:40 64 17 40 03/27/17 20:00 98.1 67 16 122/77 100 Mechanical Ventilator 40 03/27/17 20:00 40 03/27/17 20:00 66 03/27/17 17:14 68 18 40 03/27/17 16:00 98.1 65 18 123/76 100 Mechanical Ventilator 40 03/27/17 15:51 40 03/27/17 15:50 70 03/27/17 15:18 65 17 40 03/27/17 13:24 66 17 40 03/27/17 12:14 98.9 03/27/17 12:01 7.0 40 03/27/17 12:00 78 03/27/17 12:00 98.1 63 18 138/78 100 Mechanical Ventilator 40 03/27/17 11:14 70 18 40 03/27/17 11:04 79 03/27/17 11:02 79 147/89 03/27/17 10:53 100.2 03/27/17 10:00 100.2 79 18 147/89 100 Mechanical Ventilator 40 03/27/17 08:54 62 15 40 03/27/17 08:39 101.1 73 16 153/95 100 Mechanical Ventilator 7.0 40 Intake and Output 03/27/17 03/28/17 19:00 07:00 Intake Total 255 ml 465.00 ml Output Total 3000 ml 1000 ml Balance -2745 ml -535.00 ml Intake Free Water 200 ml 300 ml IV Total 55 ml 165.00 ml Tube Feeding 0 ml Output Urine Total 1800 ml 1000 ml Other 1200 ml # Bowel Movements 1 Objective WDWN NAD clear breath sounds bilaterally without rhonchi or wheeze [id number] without MRG NABS nontender no HSM no CC; edema nonfocal trach and gt on vent Microbiology Date/Time Source Procedure Growth Status 03/26/17 22:50 Blood Blood Culture - Preliminary NO GROWTH AFTER 24 HOURS Resulted 03/26/17 22:45 Blood Blood Culture - Preliminary NO GROWTH AFTER 24 HOURS Resulted 03/26/17 22:45 Urine,Clean Catch Urine Culture - Preliminary Gram Negative Bacillus 1 Resulted Laboratory Tests 03/28/17 04:15: White Blood Count 8.0, Red Blood Count 2.99L, Hemoglobin 9.0L, Hematocrit 27.5L , Mean Corpuscular Volume 92, Mean Corpuscular Hemoglobin 30.1, Mean Corpuscular Hemoglobin Concent 32.6, Red Cell Distribution Width 15.2H, Platelet Count 122L, Mean Platelet Volume 6.8, Neutrophils (%) (Auto) 84.1H, Lymphocytes (%) (Auto) 6.7L, Monocytes (%) (Auto) 6.1, Eosinophils (%) (Auto) 2.7, Basophils (%) (Auto) 0.4, Sodium Level 140, Potassium Level 3.1L, Chloride Level 96L, Carbon Dioxide Level 34H, Anion Gap 10, Blood Urea Nitrogen 22, Creatinine 0.4L, Estimat Glomerular Filtration Rate , Glucose Level 128H, Calcium Level 8.4L Current Medications Medications (Trade) Dose Ordered Sig/Kiet Route PRN Reason Start Time Stop Time Status Last Admin Dose Admin Acetaminophen (Tylenol) 325 mg Q6H PRN ORAL MILD PAIN / T>100.5 03/27/17 08:30 04/26/17 08:29 03/27/17 11:02 Artificial Tears (Akwa-Tears) 1 drop Q6H PRN BOTH EYES dry eyes 03/27/17 10:00 04/26/17 09:59 03/27/17 11:03 Ascorbic Acid (Vitamin C) 500 mg DAILY GT 03/27/17 09:00 04/26/17 08:59 03/27/17 11:03 Bisacodyl (Dulcolax) 10 mg DAILYPRN PRN RECTAL Constipation 03/27/17 08:45 04/26/17 08:44 Carvedilol (Coreg) 3.125 mg Q12HR GT 03/27/17 09:00 04/26/17 08:59 03/27/17 21:22 Digoxin (Lanoxin) 0.125 mg DAILY GT 03/27/17 09:00 04/26/17 08:59 03/27/17 11:04 Furosemide (Lasix) 20 mg Q12HR GT 03/27/17 09:00 04/26/17 08:59 03/27/17 21:23 Lansoprazole (Prevacid) 30 mg DAILY GT 03/27/17 09:00 04/26/17 08:59 03/27/17 11:03 Piperacillin Sod/ Tazobactam Sod/ Dextrose (Zosyn/D5W) 110 ml @ 27.5 mls/hr Q8HR@0000,0800,1600 IVPB 03/27/17 16:00 04/03/17 15:59 03/27/17 23:32 Potassium Chloride (KCl 10% 40mEq Oral solution) 40 meq ONCE ONCE NG 03/28/17 08:15 03/28/17 08:16 Rivaroxaban (Xarelto) 20 mg DAILY GT 03/27/17 09:00 04/26/17 08:59 03/27/17 11:01 Sucralfate (Carafate) 1 gm QID GT 03/27/17 09:00 04/26/17 08:59 03/27/17 21:22 Zinc Sulfate 220 mg 220 mg DAILY GT 03/27/17 09:00 04/26/17 08:59 03/27/17 11:01 MARGARETH VALENTINE March 28, 2017 08:17
[2017-03-28] MEDS: Ascorbic Acid 500mg tab GT SCH (08:42)
[2017-03-28] MEDS: Xarelto 10mg tab GT SCH (08:42)
[2017-03-28] MEDS: Sucralfate 1gm tab GT SCH ×3 (08:42→18:00)
[2017-03-28] MEDS: Piperacillin/Tazobactam 3.375 GM in D5W 110 ML IVPB SCH ×2 (08:42→16:08)
[2017-03-28] MEDS: Zinc Sulfate 220mg cap GT SCH (08:42)
[2017-03-28] MEDS: Digoxin 0.125mg tab GT SCH (08:43)
--- NOTE | 2017-03-28 09:15 | Diagnostic Imaging Report ---
Indications: Pleural effusion Technique: Ultrasound used to localize optimal puncture site. Sterile prepping and draping right chest. Local anesthesia with 1% lidocaine. Under real-time ultrasound guidance, puncture pleural space using thoracentesis needle. Stylet removed. Catheter placed to vacuum bottle suction. Total 1200 milliliters of fluid aspirated. Patient tolerated procedure well, without immediate complication. Findings: Followup sonography demonstrates complete resolution of pleural fluid. Impression: Successful ultrasound-guided thoracentesis, yielding 1200 milliliters of fluid
--- NOTE | 2017-03-28 10:41 | Diagnostic Imaging Report ---
Indication: SOB Technique: One view of the chest Comparison: 03/27/2017 Findings: There is suggestion of increased pleural fluid on the left. Right pleural space remains clear. Hazy retrocardiac and left perihilar opacity likely represent combination of pleural fluid and atelectasis. The heart remains enlarged. Tracheostomy, left chest pacemaker remain Impression: Increasing left-sided pleural effusion, over one day Other findings as noted
[2017-03-28 11:29] VITALS: BP 128/88
--- NOTE | 2017-03-28 13:57 | Wound Care Consultation ---
Wound Assessment Wound Assessment #1: Wound Present on Admission: Yes New Wound: No Status Change of Wound: No Wound Location Body Site Modif: mid Wound Location Body Site: sacral Wound Type: pressure ulcer Myrna Test: Does not Myrna Pressure Ulcer Stage: IV/unstageable Wound Thickness: Full Thickness Wound Length: 9.0 Wound Width: 9.0 Wound Depth: utd Percent of Wound [place]/Red: 30 Percent of Wound Bed Yellow/Wh: 50 Percent of Wound Purple/Maroon: 20 Wound Drainage Description: Serosanguineous Wound Drainage Amount: Copious Wound Drainage Odor: None/Absent Tissue Surrounding Wound: Macerated Wound General Appearance: Draining, Necrotic Wound Assessment #2: Wound Number: #2 Wound Present on Admission: Yes New Wound: No Status Change of Wound: No Wound Location Body Site Modif: right, lower, lateral Wound Location Body Site: leg Wound Type: pressure ulcer Myrna Test: Does not Myrna Pressure Ulcer Stage: IV/unstageable Wound Thickness: Full Thickness Wound Length: 3.5 Wound Width: 2.0 Wound Depth: 0.2 Percent of Wound [place]/Red: 100 Wound Drainage Description: Serosanguineous Wound Drainage Amount: Scant Wound Drainage Odor: None/Absent Tissue Surrounding Wound: Erythemic Wound General Appearance: Reddened, Draining Wound Assessment #3: Wound Number: #3 Wound Present on Admission: Yes New Wound: No Status Change of Wound: No Wound Location Body Site Modif: left Wound Location Body Site: ischial tuberosity Wound Type: pressure ulcer Myrna Test: Does not Myrna Wound Thickness: Full Thickness - scar tissue Wound Length: 3.0 Wound Width: 3.0 Wound Depth: utd Percent of Wound [place]/Red: 100 Wound Drainage Amount: None Wound Drainage Odor: None/Absent Tissue Surrounding Wound: Intact Wound General Appearance: Asymptomatic, Reddened Wound Comment #1 Sacral IV/unstageable pressure ulcer #2 Right lower lateral leg unstageable pressure ulcer #3 Left ischial tuberosity DTI full thickness scar tissue pressure ulcer Recommendation -Sacral and right lower lateral leg pressure ulcer Cleanse with saline, pat dry, apply Therahoney Gel to wound bed, cover with calcium alginate, secure with bordered gauze daily and PRN soiled/dislodged -Optimize nutrition -Keep clean and dry -Turn and reposition -Low air loss mattress -Offload both heels -Heel protector on both heels -Assess and f/u accordingly for any changes VICK RODRIGUEZ RN March 28, 2017 13:56
[2017-03-28 15:59] VITALS: BP 108/73
--- NOTE | 2017-03-28 19:16 | Consultation ---
DATE OF CONSULTATION: 03/28/2017 INFECTIOUS DISEASES CONSULTATION CONSULTING PHYSICIAN: Livan Dallas M.D. REFERRING PHYSICIAN: Rio Charles M.D. REASON FOR CONSULTATION: Urinary tract infection. HISTORY OF PRESENTING ILLNESS: This is a 72-year-old gentleman with history of respiratory failure, status post tracheostomy chronic obstructive pulmonary disease, quadriplegia who comes in with shortness of breath. He was found to have a urinary tract infection and an Infectious Diseases consultation has been obtained for antibiotics. PAST MEDICAL HISTORY: 1. History of respiratory failure, status post tracheostomy. 2. Quadriplegia secondary to spinal stenosis. 3. Chronic obstructive pulmonary disease. 4. Pleural effusion. 5. Congestive heart failure. 6. DVT. 7. Status post G-tube placement. 8. Status post neck surgery. SOCIAL HISTORY: No history of smoking, alcohol, or drug use. FAMILY HISTORY: Unknown. REVIEW OF SYSTEMS: Unable to obtain currently. MEDICATIONS: As an inpatient, the patient is on Zosyn, ascorbic acid, Coreg, digoxin, Lasix, Prevacid, Xarelto, sucralfate, zinc sulfate, bisacodyl, and Tylenol. ALLERGIES: No known drug allergies. PHYSICAL EXAMINATION: VITAL SIGNS: Temperature of 98.7, T-max of 98.9, pulse of 69, respiratory rate of 36, blood pressure 141/94, O2 saturation of 99%. HEENT: Pupils are equally reactive to light and accommodation. Mouth appears clean without thrush. NECK: Supple. No adenopathy. No JVD. CARDIOVASCULAR: Regular rate and rhythm. No murmurs. LUNGS: Clear to auscultation bilaterally. No crackles. No wheezes. ABDOMEN: Soft and nontender. G-tube site appears clean. EXTREMITIES: No cyanosis, no clubbing, no edema. LABORATORY DATA: White count of 8, hemoglobin 9, hematocrit 27.5, MCV 92, platelet count of 122,000. Neutrophils of 84%. Sodium 140, potassium 3.1, chloride 96, bicarb 34, BUN 22, creatinine 0.4, glucose 128. Calcium 8.4. Total bilirubin of on 03/26/2017 was 0.5. AST 18, ALT 13, and alkaline phosphatase 83. CK of 24 and CK-MB less than 1.5. Troponin less than 0.3. Total protein 6.5. Albumin 2.8. Lipase of 38. UA showing 60 to 80 white cells, RBC too numerous to count. Blood cultures are negative from 03/26/2017. On 03/26/2017, urine culture growing gram-negative rods. Chest x-ray showing left-sided pleural effusion. ASSESSMENT: This is a 72-year-old gentleman with history of respiratory failure, status post tracheostomy who comes in with. 1. Gram-negative urinary tract infection. 2. Pleural effusion status post thoracentesis. 3. Respiratory failure. PLAN: 1. Continue Zosyn. 2. We will follow up cultures and adjust antibiotics accordingly. I would like to thank, Dr. Charles, for this consultation. Livan Dallas M.D. DR: Katelin JOB#: [id number] CC: Neftali Mendez M.D.; Fax#: [phone]
--- NOTE | 2017-03-30 13:33 | Discharge Summary ---
Discharge Summary Hospital Course Date of Admission March 27, 2017 at 02:53 Date of Discharge March 28, 2017 at 19:35 Admitting Diagnosis dyspnea , trach/vent dep HPI Padmini Martinez is a 72 year old male who was admitted on March 27, 2017 at 02:53 for Dypnea,Trach/Vent Dep Hospital Course [id number] Discharge Discharge Disposition Patient was discharged sub acute Discharge Diagnoses: Zina Dior NP March 30, 2017 13:33
--- NOTE | 2017-03-30 22:48 | Discharge Summary 2 SIG ---
DATE OF ADMISSION: 03/27/2017 DATE OF DISCHARGE: 03/28/2017 CONSULTANTS: 1. Praveen Gold M.D. 2. Livan Dallas M.D. BRIEF HOSPITAL COURSE: The patient is a 72-year-old male with a history of respiratory failure, functional quadriplegia secondary to spinal stenosis, COPD, sepsis, pleural effusion, CHF and DVT. He was transferred from the intermediate facility secondary to hypoxemia and shortness of breath. According to the patient's son, he was well until a day prior to admission when the patient was noted with shortness of breath. When the family returned following morning he was more dyspneic. He was transferred to emergency room. Workup showed hemoglobin of 8.2. BNP was 3000. Urine WBC too numerous to count and chest x-ray showed right-sided pleural effusion. He was started on broad-spectrum antibiotics and was admitted for further evaluation and care. He was given respiratory treatments and underwent thoracentesis yielding 1 to 100 mL of fluid. At ED, chest x-ray done post thoracentesis showed resolution of the right-sided pleural effusion with no radiographically evident complication. He was pancultured. Urine culture showed gram-negative rods and was continued on Zosyn. The patient was eventually discharged back to [facility]. FINAL DIAGNOSES: 1. Acute on chronic respiratory failure with worsening pleural effusion. 2. Status post thoracentesis. 3. Worsening congestive heart failure, diastolic in nature. 4. Diabetes. 5. Urinary tract infection. 6. Sacral stage IV/unstageable pressure ulcer, right lower lateral leg unstageable pressure ulcer, and left ischial tuberosity deep tissue injury, present on admission. Rio Charles M.D. I have been assigned to dictate discharge summary on this account and I was not involved in the patient's management. Zina Dior N.P. DR: JUMANA JOB#: [id number] CC:
== END 2017-03-28 19:35 | DRG 871 ==
LOC: ENRESERV → ENRESERVDT → ENRESERVTM → EDBD 22:46 → EMR 23:23 → EDBEDREQSVC 03-27 00:08 → EDBEDREQ 03-27 02:32 → 2W 03-27 02:53
PROC: 5A1945Z Respiratory Ventilation, 24-96 Consecutive Hours (ICD-10-PCS; principal; 2017-03-27)
PROC: 0W993ZZ Drainage of Right Pleural Cavity, Percutaneous Approach (ICD-10-PCS; principal; 2017-03-27)
DX: A41.9 Sepsis, unspecified organism (principal); J96.91 Respiratory failure, unspecified with hypoxia; J90 Pleural effusion, not elsewhere classified; R53.2 Functional quadriplegia; J44.9 Chronic obstructive pulmonary disease, unspecified; Z43.0 Encounter for attention to tracheostomy; N39.0 Urinary tract infection, site not specified; B96.89 Other specified bacterial agents as the cause of diseases classified elsewhere; I50.9 Heart failure, unspecified; Z86.711 Personal history of pulmonary embolism; E11.9 Type 2 diabetes mellitus without complications; M48.00 Spinal stenosis, site unspecified; Z86.718 Personal history of other venous thrombosis and embolism; Z66 Do not resuscitate
CPT/HCPCS: 36415; 71010; 76942; 80048; 80053; 81003; 82550; 82553; 83605; 83690; 83880; 84484; 85007; 85025; 85610; 85730; 87040; 87070; 87081; 87086; 87181; 87205; 93005; 94002; 94003; 97803

== ENCOUNTER 2017-05-09 02:20 | Inpatient (IN) | payer MEDICARE ==
[~2017-05-09] VITALS: Ht 177.8 cm; Wt 72.6 kg
[2017-05-09] VITALS (10 sets, daily range): BP systolic 90–113; BP diastolic 47–81
[~2017-05-09 02:20] MED LIST changes: +DEXTROSE 40% IV; +EQ GENTLE30 ML OP; +LANSOPRAZOLE30 MG GT; +NOVOLOG100 UNIT/3 SUBQ; +PRO-STAT LIQUID30 ML ORAL; +VANCOMYCIN1 GM/2502 IVPB; +XARELTO10 MG GT; +ZINC SULFATE220 M1 GT
[2017-05-09 03:03] LABS: MEAN CORPUSCULAR HEMOGLOBIN 31.7 PG (27.0-31.0); MEAN CORPUSCULAR HGB CONC 32.9 G/DL (32.0-36.0); MEAN CORPUSCULAR VOLUME 96 FL (80-99); MEAN PLATELET VOLUME 6.9 FL (6.5-10.1); PLATELET COUNT 176 K/UL (150-450); RED BLOOD COUNT 2.45 M/UL (4.70-6.10); RED CELL DISTRIBUTION WIDTH 15.7 % (11.6-14.8); WHITE BLOOD COUNT 9.7 K/UL (4.8-10.8)
[2017-05-09] MEDS ORDERED: PREVACID30 M2 GT (03:11)
[2017-05-09] MEDS ORDERED: CARAFATE1 G1 GT (03:11)
[2017-05-09] MEDS ORDERED: XARELTO20 MG GT (03:11)
[2017-05-09] MEDS ORDERED: ARTIFICIAL TEAR15 ML BOTH EYES (03:18)
[2017-05-09] MEDS ORDERED: ACETAMINOPHEN325 M1 ORAL (03:18)
[2017-05-09] MEDS ORDERED: ACETAMINOPHEN325 M1 GT (03:18)
[2017-05-09] MEDS ORDERED: ASCORBIC ACID500 MG GT (03:18)
[2017-05-09 03:19] LABS: KETONES,URINE NEGATIVE (NEGATIVE); NITRITE,URINE NEGATIVE (NEGATIVE); PH,URINE 5 (4.5-8.0); PROTEIN,URINE 3+ (NEGATIVE); UROBILINOGEN,URINE 4 MG/DL (0.0-1.0)
[2017-05-09 03:23] LABS: PROTHROMBIN TIME 10.7 SEC (9.30-11.50)
[2017-05-09] MEDS ORDERED: HUMULIN R100 UNIT/1 SUBQ (03:27)
[2017-05-09] MEDS ORDERED: NORCO 5-325 TA1 EACH GT ×2 (03:27→03:28)
[2017-05-09 03:29] LABS: ALANINE AMINOTRANSFERASE 12 U/L (3-41); ALBUMIN/GLOBULIN RATIO 0.7 (1.0-2.7); ANION GAP 9 (5-15); ASPARTATE AMINO TRANSFERASE 19 U/L (5-40); CALCIUM 8.5 mg/dL (8.6-10.2); CARBON DIOXIDE 33 mEQ/L (20-30); CHLORIDE 95 mEQ/L (98-107); CREATININE 0.6 mg/dL (0.7-1.2); HEMOLYSIS 4; SODIUM 137 mEQ/L (135-145); TOTAL PROTEIN 6.8 g/dL (6.6-8.7)
[2017-05-09 03:31] LABS: POTASSIUM 2.7 mEQ/L (3.4-4.9); TROPONIN I < 0.30 ng/mL (<=0.30)
[2017-05-09 03:32] LABS: APPEARANCE,URINE SLIGHTLY CLOUDY; LEUKOCYTE ESTERASE ,URINE 2+ (NEGATIVE)
[2017-05-09 03:35] LABS: BACTERIA,URINE MANY /HPF; SQUAMOUS EPITHELIAL CELL,UR FEW /LPF (NONE/OCC); WBC,URINE 40-60 /HPF (0 - 0)
[2017-05-09 03:36] LABS: CALCIUM OXALATE CRYSTALS,UR MODERATE /LPF; ICTOTEST NEGATIVE; MUCUS,URINE MANY /LPF (NONE/OCC)
[2017-05-09] MEDS ORDERED: Cefepime HCl 1 GM in D5W 55 ML IVPB ONE (03:45)
--- NOTE | 2017-05-09 03:45 | Emergency Room Report ---
History of Present Illness General Chief Complaint: Abnormal Labs Source: Patient, Medical Record Present Illness HPI The patient is sent from a long term facility for low potassium. His color so he called EMS to transport the patient. He is ventilator dependent. The patient is fully alert denies pain. He does complain of some shortness of breath at this time. He was recently admitted for a left-sided pleural effusion. In March he grew out resistant organism in his urine. The patient has functional quadriplegia secondary to spinal stenosis. He is COPD. History of congestive heart failure and DVT. These are his discharge dx in March: FINAL DIAGNOSES: 1. Acute on chronic respiratory failure with worsening pleural effusion. 2. Status post thoracentesis. 3. Worsening acute congestive heart failure, diastolic in nature. 4. Diabetes. 5. Urinary tract infection. 6. Sacral stage IV/unstageable pressure ulcer, right lower lateral leg unstageable pressure ulcer, and left ischial tuberosity deep tissue injury, present on admission. Allergies: Coded Allergies: No Known Allergies (Unverified , 02/04/17) Patient History Past Medical History: see triage record Social History Narrative snf Reviewed Nursing Documentation: PMH: Agreed, PSxH: Agreed Nursing Documentation-PMH Hx Cardiac Problems: Yes - PE, A. fib, thrombocytopenia, HF, cardiomegaly Hx COPD: Yes - Trach Hx Diabetes: Yes Hx Cancer: No Review of Systems All Other Systems: negative except mentioned in HPI Physical Exam Vital Signs Date Time Temp Pulse Resp B/P Pulse Ox O2 Delivery O2 Flow Rate FiO2 05/09/17 02:19 100.8 65 24 111/65 100 Ambu-Bag 10.0 05/09/17 02:23 40 Sp02 EP Interpretation: reviewed, normal General Appearance: no apparent distress, Chronically Ill Head: normocephalic, atraumatic Eyes: bilateral eye PERRL, bilateral eye normal inspection ENT: moist mucus membranes Neck: supple, tracheotomy Respiratory: lungs clear, normal breath sounds Cardiovascular #1: regular rate, rhythm Cardiovascular #2: 2+ radial (R) Gastrointestinal: normal inspection, normal bowel sounds, non tender, no mass, non-distended Musculoskeletal: back normal, swelling - LE with decreased ROM LE Neurologic: alert, sensory intact, motor weakness, oriented - cannot answer about date, but fully alert and follows commands except for weakness Psychiatric: mood/affect normal Skin: normal inspection, warm/dry, other - decubitus Medical Decision Making Diagnostic Impression: Primary Impression: Hypokalemia Additional Impressions: UTI (urinary tract infection) Qualified Codes: T83.511D - Infection and inflammatory reaction due to indwelling urethral catheter, subsequent encounter; N39.0 - Urinary tract infection, site not specified Ventilator dependence ER Course Patient here due to low potassium. Chronically ill patient needs evaluation with EKG, CXR, labs and UA. Treatment with gentle hydration. Denies pain. Due to chronic debility, very complex patient needing extensive evaluation. Labs significant for critically low potassium and pyuria. Improved with treatment. Admit angelica Dr. Pedraza (prior admit to Dr. Valentine.) Laboratory Tests Test 05/09/17 02:45 05/09/17 02:59 White Blood Count 9.7 K/UL (4.8-10.8) Red Blood Count 2.45 M/UL (4.70-6.10) L Hemoglobin 7.8 G/DL (14.2-18.0) L Hematocrit 23.6 % (42.0-52.0) L Mean Corpuscular Volume 96 FL (80-99) Mean Corpuscular Hemoglobin 31.7 PG (27.0-31.0) H Mean Corpuscular Hemoglobin Concent 32.9 G/DL (32.0-36.0) Red Cell Distribution Width 15.7 % (11.6-14.8) H Platelet Count 176 K/UL (150-450) Mean Platelet Volume 6.9 FL (6.5-10.1) Neutrophils (%) (Auto) % (45.0-75.0) Lymphocytes (%) (Auto) % (20.0-45.0) Monocytes (%) (Auto) % (1.0-10.0) Eosinophils (%) (Auto) % (0.0-3.0) Basophils (%) (Auto) % (0.0-2.0) Prothrombin Time 10.7 SEC (9.30-11.50) Prothrombin Time INR 1.0 (0.9-1.1) PTT 30 SEC (23-33) Sodium Level 137 mEQ/L (135-145) Potassium Level 2.7 mEQ/L (3.4-4.9) *L Chloride Level 95 mEQ/L (98-107) L Carbon Dioxide Level 33 mEQ/L (20-30) H Anion Gap 9 (5-15) Blood Urea Nitrogen 26 mg/dL (7-23) H Creatinine 0.6 mg/dL (0.7-1.2) L Estimate Glomerular Filtration Rate mL/min (>60) Glucose Level 119 mg/dL (74-106) H Lactic Acid Level 1.00 mmol/L (0.66-2.22) Calcium Level 8.5 mg/dL (8.6-10.2) L Total Bilirubin 0.7 mg/dL (0.0-1.2) Aspartate Amino Transferase (AST) 19 U/L (5-40) Alanine Aminotransferase (ALT) 12 U/L (3-41) Alkaline Phosphatase 75 U/L (40-129) Total Creatine Kinase 59 U/L (38-174) Troponin I < 0.30 ng/mL (<=0.30) Pro-B-Type Natriuretic Peptide 3396 pg/mL (0-125) H Total Protein 6.8 g/dL (6.6-8.7) Albumin 2.9 g/dL (3.5-5.2) L Globulin 3.9 g/dL Albumin/Globulin Ratio 0.7 (1.0-2.7) L Urine Color Yellow Urine Appearance Slightly cloudy Urine pH 5 (4.5-8.0) Urine Specific [place] 1.015 (1.005-1.035) Urine Protein 3+ (NEGATIVE) H Urine Glucose (UA) Negative (NEGATIVE) Urine Ketones Negative (NEGATIVE) Urine Occult Blood 3+ (NEGATIVE) H Urine Nitrite Negative (NEGATIVE) Urine Bilirubin 1+ (NEGATIVE) H Urine Ictotest Negative Urine Urobilinogen 4 MG/DL (0.0-1.0) H Urine Leukocyte Esterase 2+ (NEGATIVE) H Urine RBC 10-15 /HPF (0 - 0) H Urine WBC 40-60 /HPF (0 - 0) H Urine Squamous Epithelial Cells Few /LPF (NONE/OCC) Urine Calcium Oxalate Crystals Moderate /LPF (NONE) Urine Bacteria Many /HPF (NONE) H Urine Mucus Many /LPF (NONE/OCC) H EKG Diagnostic Results Rate: normal Rhythm: other - Atrial fibrillation ST Segments: no acute changes - M. LOC Rhythm Strip Diag. Results EP Interpretation: yes Rhythm: no ectopy, other - PVCs Chest X-Ray Diagnostic Results Chest X-Ray Diagnostic Results : Chest X-Ray Ordered: Yes # of Views/Limited/Complete: 1 View Indication: Other EP Interpretation: Yes Interpretation: no pneumothorax, other - L effusion, trach, increased salter with some atelectasis Impression: Other Interpreting ER Provider: Electronically signed by Cristobal Palm MD Last Vital Signs Date Time Temp Pulse Resp B/P Pulse Ox O2 Delivery O2 Flow Rate FiO2 05/09/17 02:30 66 16 40 05/09/17 02:19 100.8 111/65 100 Ambu-Bag 10.0 Status: improved Disposition: ADMITTED INPATIENT Condition: Serious Referrals: MARGARETH VALENTINE (PCP) Cristobal Palm M.D. May 09, 2017 03:45
[2017-05-09] MEDS ORDERED: Cefepime 1gm vial ONE (03:49)
[2017-05-09] MEDS ORDERED: Morphine Sulfate 4mg/ml Inj IVP PRN (06:45)
[2017-05-09] MEDS ORDERED: DuoNeb 0.5-3(2.5)mg/3ml neb HHN PRN (06:45)
[2017-05-09] MEDS ORDERED: Miralax 17gm pkt ORAL PRN (06:45)
[2017-05-09] MEDS ORDERED: LORazepam Inj 2mg/ml 1ml IV PRN (06:45)
--- NOTE | 2017-05-09 08:53 | History and Physical ---
History of Present Illness General Date patient seen: May 09, 2017 Reason for Hospitalization: Abnormal Labs Present Illness HPI 72 year old male with hx of chronic trach/vent/peg, pace maker, [facility] resident brought in with CC of worsening pleural effusion and hypokalemia Allergies: Coded Allergies: No Known Allergies (Unverified , 02/04/17) Medication History Scheduled Ascorbic Acid* (Ascorbic Acid*), 500 MG GT DAILY, (Reported) Carvedilol* (Carvedilol*), 3.125 MG GT TWICE A DAY, (Reported) Dextran 70/Hypromellose (Artificial Tears Eye Drops*), 1 DROP BOTH EYES EVERY 6 HOURS, (Reported) Digoxin* (Digoxin*), 125 MCG GT DAILY, (Reported) Furosemide* (Lasix*), 20 MG GT TWICE A DAY, (Reported) Lansoprazole* (Prevacid*), 30 MG GT DAILY, (Reported) Multivitamin Liquid* (Multi-Delyn*), 5 ML GT DAILY, (Reported) Rivaroxaban (Xarelto), 20 MG GT DAILY, (Reported) Sucralfate* (Carafate*), 1 GM GT FOUR TIMES A DAY, (Reported) Scheduled PRN Acetaminophen* (Acetaminophen 325MG Tablet*), 650 MG GT Q6H PRN for For Pain, ( Reported) Acetaminophen* (Acetaminophen 325MG Tablet*), 650 MG ORAL Q6H PRN for TEMP>100.5 , (Reported) Bisacodyl* (Dulcolax*), 10 MG RECTAL PRN PRN for Constipation, (Reported) Hydrocodone Bit/Acetaminophen 5-325* ([place] 5-325*), 1 TAB GT Q6H PRN for For Pain, (Reported) Hydrocodone Bit/Acetaminophen 5-325* ([place] 5-325*), 0.5 TAB GT IN AM PRN for For Pain, (Reported) Miscellaneous Medications Insulin Regular, Human (Humulin R), 0 SUBQ, (Reported) Discontinued Medications Acetaminophen* (Acetaminophen 325MG Tablet*), 325 MG GT Q6H PRN for For Pain, ( Reported) Discontinued Reason: Therapy completed Amino Acids/Protein Hydrolys (Pro-Stat Liquid), 30 ML ORAL TWICE A DAY, ( Reported) Discontinued Reason: Therapy completed Ascorbic Acid* (Vitamin C*), 500 MG GT DAILY, (Reported) Discontinued Reason: Therapy completed Dextran 70/Hypromellose (Artificial Tears Eye Drops*), 1 DROP BOTH EYES, ( Reported) Discontinued Reason: Therapy completed Dextrose 40 % In Water (Dextrose 40%-Water Iv Soln), 500 ML IV, (Reported) Discontinued Reason: Therapy completed Epoetin [place] (Epogen), 10,000 UNIT SUBQ 3XW, (Reported) Discontinued Reason: Therapy completed Ferrous Sulfate (Ferrous Sulfate), 7.5 ML GT THREE TIMES A DAY, (Reported) Discontinued Reason: Therapy completed Hypromellose (Eq Gentle), 30 ML OP Q12HR, (Reported) Discontinued Reason: Therapy completed Insulin Aspart* (Novolog*), 0 SUBQ, (Reported) Discontinued Reason: Therapy completed Lansoprazole* (Lansoprazole*), 30 MG GT DAILY, (Reported) Discontinued Reason: Therapy completed Pantoprazole* (Protonix*), 40 MG GT DAILY, (Reported) Discontinued Reason: Therapy completed Rivaroxaban (Xarelto*), 15 MG GT DAILY, (Reported) Discontinued Reason: Therapy completed Sucralfate* (Carafate*), 1 GM GT ACHS, (Reported) Discontinued Reason: Therapy completed Vancomycin Hcl/D5w (Vancomycin-D5w 1 G/250 Ml), 1 GM IVPB Q24H, (Reported) Discontinued Reason: Therapy completed Zinc Sulfate (Zinc Sulfate*), 220 MG GT DAILY, (Reported) Discontinued Reason: Therapy completed Patient History Healthcare decision maker Resuscitation status Advanced Directive on File Past Medical/Surgical History Past Medical/Surgical History: (1) History of CVA (cerebrovascular accident) (2) Ventilator dependence Review of Systems All Other Systems: negative except mentioned in HPI Physical Exam General Appearance: cachetic Lines, tubes and drains: peripheral, trach HEENT: normocephalic, atraumatic Neck: non-tender, normal alignment Respiratory/Chest: chest wall non-tender, lungs clear Cardiovascular/Chest: normal peripheral pulses, normal rate Abdomen: normal bowel sounds, non tender Genitourinary/Rectal: normal genital exam, heme negative stool Extremities: normal range of motion Skin Exam: normal pigmentation Neurologic: edge polisher II-XII grossly normal Last 24 Hour Vital Signs Date Time Temp Pulse Resp B/P Pulse Ox O2 Delivery O2 Flow Rate FiO2 05/09/17 08:15 98.7 64 16 90/53 100 Mechanical Ventilator 40 05/09/17 08:00 40 05/09/17 07:45 97.2 62 16 101/66 10 Room Air 10.0 40 05/09/17 07:43 97.2 62 16 101/66 10 Room Air 10.0 40 05/09/17 07:02 64 17 40 05/09/17 06:04 97.2 61 16 101/70 100 Room Air 05/09/17 04:53 60 17 40 05/09/17 04:41 10.0 40 05/09/17 04:00 65 17 100/65 100 Mechanical Ventilator 40 05/09/17 02:30 66 16 40 05/09/17 02:23 62 16 40 05/09/17 02:19 100.8 65 24 111/65 100 Ambu-Bag 10.0 Intake and Output 05/08/17 05/09/17 19:00 07:00 Intake Total 0 ml Balance 0 ml Intake Oral 0 ml Laboratory Tests Test 05/09/17 02:45 05/09/17 02:59 White Blood Count 9.7 K/UL (4.8-10.8) Red Blood Count 2.45 M/UL (4.70-6.10) L Hemoglobin 7.8 G/DL (14.2-18.0) L Hematocrit 23.6 % (42.0-52.0) L Mean Corpuscular Volume 96 FL (80-99) Mean Corpuscular Hemoglobin 31.7 PG (27.0-31.0) H Mean Corpuscular Hemoglobin Concent 32.9 G/DL (32.0-36.0) Red Cell Distribution Width 15.7 % (11.6-14.8) H Platelet Count 176 K/UL (150-450) Mean Platelet Volume 6.9 FL (6.5-10.1) Neutrophils (%) (Auto) % (45.0-75.0) Lymphocytes (%) (Auto) % (20.0-45.0) Monocytes (%) (Auto) % (1.0-10.0) Eosinophils (%) (Auto) % (0.0-3.0) Basophils (%) (Auto) % (0.0-2.0) Prothrombin Time 10.7 SEC (9.30-11.50) Prothromb Time International Ratio 1.0 (0.9-1.1) Activated Partial Thromboplast Time 30 SEC (23-33) Sodium Level 137 mEQ/L (135-145) Potassium Level 2.7 mEQ/L (3.4-4.9) *L Chloride Level 95 mEQ/L (98-107) L Carbon Dioxide Level 33 mEQ/L (20-30) H Anion Gap 9 (5-15) Blood Urea Nitrogen 26 mg/dL (7-23) H Creatinine 0.6 mg/dL (0.7-1.2) L Estimat Glomerular Filtration Rate mL/min (>60) Glucose Level 119 mg/dL (74-106) H Lactic Acid Level 1.00 mmol/L (0.66-2.22) Calcium Level 8.5 mg/dL (8.6-10.2) L Total Bilirubin 0.7 mg/dL (0.0-1.2) Aspartate Amino Transf (AST/SGOT) 19 U/L (5-40) Alanine Aminotransferase (ALT/SGPT) 12 U/L (3-41) Alkaline Phosphatase 75 U/L (40-129) Total Creatine Kinase 59 U/L (38-174) Troponin I < 0.30 ng/mL (<=0.30) Pro-B-Type Natriuretic Peptide 3396 pg/mL (0-125) H Total Protein 6.8 g/dL (6.6-8.7) Albumin 2.9 g/dL (3.5-5.2) L Globulin 3.9 g/dL Albumin/Globulin Ratio 0.7 (1.0-2.7) L Urine Color Yellow Urine Appearance Slightly cloudy Urine pH 5 (4.5-8.0) Urine Specific [place] 1.015 (1.005-1.035) Urine Protein 3+ (NEGATIVE) H Urine Glucose (UA) Negative (NEGATIVE) Urine Ketones Negative (NEGATIVE) Urine Occult Blood 3+ (NEGATIVE) H Urine Nitrite Negative (NEGATIVE) Urine Bilirubin 1+ (NEGATIVE) H Urine Ictotest Negative Urine Urobilinogen 4 MG/DL (0.0-1.0) H Urine Leukocyte Esterase 2+ (NEGATIVE) H Urine RBC 10-15 /HPF (0 - 0) H Urine WBC 40-60 /HPF (0 - 0) H Urine Squamous Epithelial Cells Few /LPF (NONE/OCC) Urine Calcium Oxalate Crystals Moderate /LPF (NONE) Urine Bacteria Many /HPF (NONE) H Urine Mucus Many /LPF (NONE/OCC) H Height (Feet): 5 Height (Inches): 10.00 Weight (Pounds): 160 Medications Current Medications Medications (Trade) Dose Ordered Sig/Kiet Route PRN Reason Start Time Stop Time Status Last Admin Dose Admin Acetaminophen (Tylenol) 650 mg Q4H PRN ORAL FEVER 05/09/17 06:45 06/08/17 06:44 Albuterol/ Ipratropium (DuoNeb 0.5-3(2.5)mg/3ml) 3 ml Q4H PRN HHN Shortness of Breath 05/09/17 06:45 05/14/17 06:44 Carvedilol (Coreg) 3.125 mg TWICE A DAY GT 05/09/17 09:00 06/08/17 08:59 Dextrose (Dextrose 50%) STAT PRN IV Hypoglycemia 05/09/17 06:45 06/08/17 06:44 Digoxin (Lanoxin) 0.125 mg DAILY GT 05/09/17 09:00 06/08/17 08:59 Heparin Sodium (Porcine) (Heparin 5000 units/ml) 5,000 units EVERY 12 HOURS SUBQ 05/09/17 09:00 06/08/17 08:59 Lorazepam (Ativan 2mg/ml 1ml) 2 mg Q2H PRN IV For Anxiety 05/09/17 06:45 05/16/17 06:44 Morphine Sulfate (Morphine Sulfate) 4 mg Q4H PRN IVP Severe Pain (Pain Scale 7-10) 05/09/17 06:45 05/16/17 06:44 Ondansetron HCl (Zofran) 4 mg Q6H PRN IVP Nausea & Vomiting 05/09/17 06:45 06/08/17 06:44 Polyethylene Glycol (Miralax) 17 gm DAILYPRN PRN ORAL Constipation 05/09/17 06:45 06/08/17 06:44 Assessment/Plan Problem List: (1) Respiratory distress ICD Codes: R06.00 - Dyspnea, unspecified SNOMED: 719077402 (2) Hypokalemia ICD Codes: E87.6 - Hypokalemia SNOMED: 95532170 (3) CHF (congestive heart failure) ICD Codes: I50.9 - Heart failure, unspecified SNOMED: 62134591 (4) Pleural effusion ICD Codes: J90 - Pleural effusion, not elsewhere classified SNOMED: 20729342 (5) Pacemaker ICD Codes: Z95.0 - Presence of cardiac pacemaker SNOMED: 357936582, 181492193 (6) History of CVA (cerebrovascular accident) ICD Codes: Z86.73 - Personal history of transient ischemic attack (TIA), and cerebral infarction without residual deficits SNOMED: 988302895 Respiratory: monitor respiratory rate, adjust FIO2 Cardiac: continue to monitor HR/BP Renal: F/U I&O Infectious Disease: check cultures Gastrointestinal: continue feedings/current rate Endocrine: monitor blood sugar, check TSH Hematologic: monitor H/H, transfuse if hgb<8.5 Neurologic: PRN Ativan, keep patient comfortable Affect: PRN ativan Notes Reviewed: cardio, renal Discussed with: nurses, consultants, oil field caser JUDSON MURRELL May 09, 2017 08:53
[2017-05-09] MEDS: Digoxin 0.125mg tab GT SCH (09:31)
[2017-05-09] MEDS: Heparin 5000 units/ml inj SUBQ SCH ×2 (09:33→21:00)
[2017-05-09] MEDS ORDERED: NovoLOG Insulin Flexpen SUBQ SCH (11:30)
--- NOTE | 2017-05-09 11:45 | Consultation ---
Consult Note Consult Note asked to eval for Oliguria and electrolyte imbalances HPI The patient is sent from a detention facility for low potassium. His color so he called EMS to transport the patient. He is ventilator dependent. The patient is fully alert denies pain. He does complain of some shortness of breath at this time. He was recently admitted for a left-sided pleural effusion. In March he grew out resistant organism in his urine. The patient has functional quadriplegia secondary to spinal stenosis. He is COPD. History of congestive heart failure and DVT. Allergies: No Known Allergies (Unverified , 02/04/17) Hx Cardiac Problems: Yes - PE, A. fib, thrombocytopenia, HF, cardiomegaly Hx COPD: Yes - Trach Hx Diabetes: Yes Hx Cancer: No Assessment/Plan Status: HypoKalemia- Hypotension leading to low Urine out put and renal failure- Severe Anemia possible sepsis- Vent dependent- Pacemaker previous conditions: 1. Acute on chronic respiratory failure with worsening pleural effusion. 2. Status post thoracentesis. 3. Worsening acute congestive heart failure, diastolic in nature. 4. Diabetes. 5. Urinary tract infection. 6. Sacral stage IV/ unstageable pressure ulcer, right lower lateral leg unstageable pressure ulcer, and left ischial tuberosity deep tissue injury, present on admission. Plan; Antibiotics- Transfusion as needed- K supplement- optimize cardiac and pulmonary status Per orders ASA COSME May 09, 2017 11:45
[2017-05-09] MEDS: NovoLOG Insulin Flexpen SUBQ SCH ×2 (12:30→17:41)
[2017-05-09] MEDS ORDERED: KCl 10% 40mEq/30ml liquid NG ONE (12:30)
[2017-05-09] MEDS: Pantoprazole Inj IVP SCH ×2 (13:07→21:00)
--- NOTE | 2017-05-09 13:58 | Cardiology Progress Note ---
Assessment/Plan Assessment/Plan perm afib lv syustokic dysfucntion hs mr fucntion quad anemia electolyte abn watch stool ob may need to hoel santi if positive for gi brasher may need ivf or prbc tx [id number] Objective Last 24 Hour Vital Signs Date Time Temp Pulse Resp B/P Pulse Ox O2 Delivery O2 Flow Rate FiO2 05/09/17 12:39 71 18 40 05/09/17 12:00 40 05/09/17 12:00 64 05/09/17 12:00 97.9 64 18 90/47 100 Mechanical Ventilator 40 05/09/17 11:00 64 17 93/58 100 Mechanical Ventilator 40 05/09/17 10:46 66 15 40 05/09/17 10:00 63 18 99/67 100 Mechanical Ventilator 40 05/09/17 09:31 63 05/09/17 09:31 62 99/62 05/09/17 09:12 67 17 40 05/09/17 09:00 64 17 95/56 100 Mechanical Ventilator 40 05/09/17 08:23 64 05/09/17 08:15 98.7 64 16 90/53 100 Mechanical Ventilator 40 05/09/17 08:00 40 05/09/17 07:45 97.2 62 16 101/66 10 Room Air 10.0 40 05/09/17 07:43 97.2 62 16 101/66 10 Room Air 10.0 40 05/09/17 07:02 64 17 40 05/09/17 06:04 97.2 61 16 101/70 100 Room Air 05/09/17 04:53 60 17 40 05/09/17 04:41 10.0 40 05/09/17 04:00 65 17 100/65 100 Mechanical Ventilator 40 05/09/17 02:30 66 16 40 05/09/17 02:23 62 16 40 05/09/17 02:19 100.8 65 24 111/65 100 Ambu-Bag 10.0 Intake and Output 05/08/17 05/09/17 19:00 07:00 Intake Total 0 ml Balance 0 ml Intake Oral 0 ml Laboratory Tests Test 05/09/17 02:45 05/09/17 02:59 White Blood Count 9.7 K/UL (4.8-10.8) Red Blood Count 2.45 M/UL (4.70-6.10) L Hemoglobin 7.8 G/DL (14.2-18.0) L Hematocrit 23.6 % (42.0-52.0) L Mean Corpuscular Volume 96 FL (80-99) Mean Corpuscular Hemoglobin 31.7 PG (27.0-31.0) H Mean Corpuscular Hemoglobin Concent 32.9 G/DL (32.0-36.0) Red Cell Distribution Width 15.7 % (11.6-14.8) H Platelet Count 176 K/UL (150-450) Mean Platelet Volume 6.9 FL (6.5-10.1) Neutrophils (%) (Auto) % (45.0-75.0) Lymphocytes (%) (Auto) % (20.0-45.0) Monocytes (%) (Auto) % (1.0-10.0) Eosinophils (%) (Auto) % (0.0-3.0) Basophils (%) (Auto) % (0.0-2.0) Prothrombin Time 10.7 SEC (9.30-11.50) Prothromb Time International Ratio 1.0 (0.9-1.1) Activated Partial Thromboplast Time 30 SEC (23-33) Sodium Level 137 mEQ/L (135-145) Potassium Level 2.7 mEQ/L (3.4-4.9) *L Chloride Level 95 mEQ/L (98-107) L Carbon Dioxide Level 33 mEQ/L (20-30) H Anion Gap 9 (5-15) Blood Urea Nitrogen 26 mg/dL (7-23) H Creatinine 0.6 mg/dL (0.7-1.2) L Estimat Glomerular Filtration Rate mL/min (>60) Glucose Level 119 mg/dL (74-106) H Lactic Acid Level 1.00 mmol/L (0.66-2.22) Calcium Level 8.5 mg/dL (8.6-10.2) L Total Bilirubin 0.7 mg/dL (0.0-1.2) Aspartate Amino Transf (AST/SGOT) 19 U/L (5-40) Alanine Aminotransferase (ALT/SGPT) 12 U/L (3-41) Alkaline Phosphatase 75 U/L (40-129) Total Creatine Kinase 59 U/L (38-174) Troponin I < 0.30 ng/mL (<=0.30) Pro-B-Type Natriuretic Peptide 3396 pg/mL (0-125) H Total Protein 6.8 g/dL (6.6-8.7) Albumin 2.9 g/dL (3.5-5.2) L Globulin 3.9 g/dL Albumin/Globulin Ratio 0.7 (1.0-2.7) L Urine Color Yellow Urine Appearance Slightly cloudy Urine pH 5 (4.5-8.0) Urine Specific [place] 1.015 (1.005-1.035) Urine Protein 3+ (NEGATIVE) H Urine Glucose (UA) Negative (NEGATIVE) Urine Ketones Negative (NEGATIVE) Urine Occult Blood 3+ (NEGATIVE) H Urine Nitrite Negative (NEGATIVE) Urine Bilirubin 1+ (NEGATIVE) H Urine Ictotest Negative Urine Urobilinogen 4 MG/DL (0.0-1.0) H Urine Leukocyte Esterase 2+ (NEGATIVE) H Urine RBC 10-15 /HPF (0 - 0) H Urine WBC 40-60 /HPF (0 - 0) H Urine Squamous Epithelial Cells Few /LPF (NONE/OCC) Urine Calcium Oxalate Crystals Moderate /LPF (NONE) Urine Bacteria Many /HPF (NONE) H Urine Mucus Many /LPF (NONE/OCC) H BRIDGER CONDON May 09, 2017 13:58
--- NOTE | 2017-05-09 14:36 | Consultation ---
Consult Note Consult Note [id number] ENID DEVI M.D. May 09, 2017 14:36
[2017-05-09] MEDS: Cefepime HCl 2 GM in D5W 110 ML IVPB SCH (15:24)
--- NOTE | 2017-05-09 20:45 | Consultation ---
DATE OF CONSULTATION: INFECTIOUS DISEASE CONSULTATION CONSULTING PHYSICIAN: Benjamin Siu M.D. REFERRING PHYSICIAN: Keegan Pedraza M.D. REASON FOR CONSULTATION: Evaluation of the patient for possible UTI, sepsis, antibiotic management. HISTORY OF PRESENT ILLNESS: The patient is a 72-year-old male with multiple medical problems as listed below, who was admitted to this medical center due to worsening of pleural effusion, electrolyte imbalance. The patient also was found to have pyuria and being consulted for possible urinary tract infection and sepsis. An Infectious Disease consultation has been requested for further evaluation of the patient. PAST MEDICAL HISTORY: 1. History of quadriplegia. 2. History of atrial fibrillation. 3. History of PE. 4. History of pacemaker. 5. History of hypertension. 6. History of COPD. 7. Status post trach and PEG placement. 8. Gout. 9. Diabetes. MEDICATIONS: Currently off of antibiotics. The patient received one dose of cefepime today. ALLERGIES: No known drug allergies. SOCIAL HISTORY: The patient is a resident of [facility]. FAMILY HISTORY: Unavailable. REVIEW OF SYSTEMS: Limited. Most of the information has been gathered from the patient's effectively communicate. PHYSICAL EXAMINATION: VITAL SIGNS: Temperature 97.9 degrees, blood pressure 90/47, pulse , respiratory rate 18 and T-max of 100.8 degrees. HEENT: No icterus. Mild pale conjunctivae. NECK: No adenopathy. Trach in place. CHEST: Coarse breathing sounds. HEART: S1 and S2. ABDOMEN: Soft. PEG tube in place. Obese and nontender. EXTREMITIES: No cyanosis. GENITOURINARY: Parkinson catheter in place. LABORATORY AND DIAGNOSTIC DATA: White blood cell , hemoglobin 7.8 and platelet 176,000. Urinalysis, 4-6 white blood cells. BUN 23 and creatinine 0.6. ALT, AST and alkaline phosphatase unremarkable. Chest x-ray pending. ASSESSMENT: The patient is a 72-year-old male with multiple medical problems as listed above who has 1. Low-grade fever. 2. Pyuria/probable urinary tract infection. 3. Rule out pneumonia. 4. Pleural effusion. 5. Sacral decubitus, not grossly infected. PLAN: 1. We will continue the patient on cefepime day #1. 2. Monitor CBC. 3. Monitor BMP. 4. Monitor cultures (blood, urine, and sputum). 5. Monitor chest x-ray. 6. Based on the patient's clinical course and labs, we will do further recommendations. Thank you, Dr. Pedraza, for allowing me to participate in the care of this patient. I will follow the patient with you during this hospitalization. Benjamin Siu M.D. DR: RITA JOB#: [id number] CC:
[2017-05-10] VITALS (13 sets, daily range): BP systolic 118–134; BP diastolic 66–88
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
[2017-05-10 05:31] LABS: MEAN CORPUSCULAR HEMOGLOBIN 31.8 PG (27.0-31.0); MEAN CORPUSCULAR HGB CONC 32.3 G/DL (32.0-36.0); MEAN CORPUSCULAR VOLUME 98 FL (80-99); MEAN PLATELET VOLUME 7.1 FL (6.5-10.1); PLATELET COUNT 165 K/UL (150-450); RED BLOOD COUNT 2.25 M/UL (4.70-6.10); RED CELL DISTRIBUTION WIDTH 16.2 % (11.6-14.8); WHITE BLOOD COUNT 7.5 K/UL (4.8-10.8)
[2017-05-10] MEDS: NovoLOG Insulin Flexpen SUBQ SCH ×4 (06:00→17:07)
[2017-05-10 06:04] LABS: ALANINE AMINOTRANSFERASE 10 U/L (3-41); ALBUMIN/GLOBULIN RATIO 0.6 (1.0-2.7); ANION GAP 8 (5-15); ASPARTATE AMINO TRANSFERASE 16 U/L (5-40); CALCIUM 8.9 mg/dL (8.6-10.2); CARBON DIOXIDE 32 mEQ/L (20-30); CHLORIDE 99 mEQ/L (98-107); CHOLESTEROL 94 mg/dL (< 200); CHOLESTEROL/HDL RATIO 4.1 (3.3-4.4); CREATININE 0.6 mg/dL (0.7-1.2); HEMOLYSIS 2; LDL CHOLESTEROL (CALC.) 49 mg/dL (60-99); MAGNESIUM 2.2 mg/dL (1.7-2.5); PHOSPHORUS 3.7 mg/dL (2.5-4.8); POTASSIUM 3.3 mEQ/L (3.4-4.9); SODIUM 139 mEQ/L (135-145); TOTAL PROTEIN 6.7 g/dL (6.6-8.7)
[2017-05-10 06:17] LABS: FERRITIN 528 ng/mL (10-230)
[2017-05-10] MEDS: Pantoprazole Inj IVP SCH ×2 (09:03→21:28)
[2017-05-10] MEDS: Heparin 5000 units/ml inj SUBQ SCH ×2 (09:05→21:27)
[2017-05-10] MEDS: Digoxin 0.125mg tab GT SCH (09:06)
[2017-05-10] MEDS ORDERED: KCl 10% 40mEq/30ml liquid NG ONE (09:30)
--- NOTE | 2017-05-10 10:02 | Diagnostic Imaging Report ---
Indication: CP Technique: XRAY CHEST 1 V. Comparison: 03/28/2017 Findings: The heart remains enlarged. The aorta is elongated. There is density in the left base obscures left hemidiaphragm. Air bronchograms are present. Blunting of the costophrenic angles is noted bilaterally. A pacemaker remains. Tracheostomy remains. There is pulmonary vascular redistribution. Impression: Cardiomegaly. Pulmonary vascular redistribution consistent with congestive heart failure. Bilateral pleural effusions. Volume loss or airspace disease in the left medial base. No significant change from prior examination.
[2017-05-10 11:19] LABS: CRP QUANT 3.4 mg/dL (< 0.5); HEMOLYSIS 3; IRON 35 ug/dL (59-158); TOTAL IRON BINDING CAPACITY 164 ug/dL (250-400); URIC ACID 8.7 mg/dL (3.0-7.5)
[2017-05-10 11:35] LABS: HEMOGLOBIN A1C 4.9 % (< 6.0)
[2017-05-10 11:40] LABS: ABG ALLEN TEST POSITIVE; ABG BASE EXCESS 7.3; ABG PCO2 37.9 mmHg (35.0-45.0)
--- NOTE | 2017-05-10 11:50 | Pulmonology Progress Note ---
Assessment/Plan Problems: (1) Respiratory distress (2) Hypokalemia (3) CHF (congestive heart failure) (4) Pleural effusion (5) Pacemaker (6) History of CVA (cerebrovascular accident) Respiratory: monitor respiratory rate, adjust FIO2, CXR Cardiac: stop pressors, continue to monitor HR/BP Renal: keep IV fluid Infectious Disease: check cultures, continue antibiotics Gastrointestinal: continue feedings/current rate Endocrine: monitor blood sugar, check TSH, check HgA1C Hematologic: monitor H/H, transfuse if hgb<8.5 Neurologic: PRN Ativan, PRN Morphine, keep patient comfortable Prophylaxis: Protonix, Heparin Notes Reviewed: commercial construction estimator, cardio, renal Discussed with: nurses, consultants, case aide Subjective ROS Limited/Unobtainable: No Constitutional: Reports: no symptoms HEENT: Repors: no symptoms Respiratory: Reports: no symptoms Allergies: Coded Allergies: No Known Allergies (Unverified , 02/04/17) Objective Last 24 Hour Vital Signs Date Time Temp Pulse Resp B/P Pulse Ox O2 Delivery O2 Flow Rate FiO2 05/10/17 11:06 66 17 35 05/10/17 09:07 76 122/82 05/10/17 09:06 76 05/10/17 08:56 70 18 35 05/10/17 08:00 98.2 76 18 122/82 100 Mechanical Ventilator 35 05/10/17 08:00 40 05/10/17 07:49 60 05/10/17 06:58 61 19 35 05/10/17 04:56 74 19 35 05/10/17 04:00 67 05/10/17 04:00 40 05/10/17 04:00 99.1 92 19 128/67 98 Mechanical Ventilator 40 05/10/17 03:11 67 17 35 05/10/17 01:10 66 22 35 05/10/17 00:00 99.8 86 21 128/75 100 Mechanical Ventilator 40 05/10/17 00:00 40 05/10/17 00:00 71 05/09/17 23:11 69 23 35 05/09/17 21:20 71 18 35 05/09/17 20:00 40 05/09/17 20:00 68 05/09/17 20:00 99.3 68 21 113/81 100 Mechanical Ventilator 40 05/09/17 19:25 70 18 35 05/09/17 17:41 72 99/72 05/09/17 16:38 72 20 35 05/09/17 16:00 40 05/09/17 16:00 98.1 67 18 99/72 100 Mechanical Ventilator 40 05/09/17 16:00 63 05/09/17 14:59 69 19 35 05/09/17 12:39 71 18 40 05/09/17 12:00 40 05/09/17 12:00 64 05/09/17 12:00 97.9 64 18 90/47 100 Mechanical Ventilator 40 Intake and Output 05/09/17 05/10/17 19:00 07:00 Intake Total 400 ml 360 ml Output Total 300 ml 500 ml Balance 100 ml -140 ml IV Total 310 ml Tube Feeding 90 ml 360 ml Output Urine Total 300 ml 500 ml # Bowel Movements 1 General Appearance: cachetic HEENT: normocephalic, atraumatic Respiratory/Chest: chest wall non-tender, lungs clear Cardiovascular: normal peripheral pulses, normal rate, regularly irregular Abdomen: normal bowel sounds, soft, non tender Genitourinary: normal external genitalia Extremities: no cyanosis Skin: no rash Neurologic/Psychiatric: picture frames inspector II-XII grossly normal, no motor/sensory deficits Lymphatic: no neck adenopathy Microbiology Date/Time Source Procedure Growth Status 05/09/17 03:00 Blood Blood Culture - Preliminary Resulted 05/09/17 02:45 Blood Blood Culture - Preliminary Resulted 05/09/17 09:30 Sputum Gram Stain - Final Resulted 05/09/17 09:30 Sputum Sputum Culture Pending Resulted 05/09/17 02:59 Urine,Clean Catch Urine Culture - Preliminary Gram Negative Bacillus 1 Resulted Laboratory Tests 05/10/17 04:00: White Blood Count 7.5, Red Blood Count 2.25L, Hemoglobin 7.2L, Hematocrit 22.1L , Mean Corpuscular Volume 98, Mean Corpuscular Hemoglobin 31.8H, Mean Corpuscular Hemoglobin Concent 32.3, Red Cell Distribution Width 16.2H, Platelet Count 165, Mean Platelet Volume 7.1, Neutrophils (%) (Auto) , Lymphocytes (%) (Auto) , Monocytes (%) (Auto) , Eosinophils (%) (Auto) , Basophils (%) (Auto) , Arterial Blood pH 7.525H, Arterial Blood Partial Pressure CO2 37.9, Arterial Blood Partial Pressure O2 135.2H, Arterial Blood HCO3 30.6H, Arterial Blood Oxygen Saturation 98.1H, Arterial Blood Base Excess 7.3, Reyes Test Positive, Sodium Level 139, Potassium Level 3.3L, Chloride Level 99, Carbon Dioxide Level 32H, Anion Gap 8, Blood Urea Nitrogen 27H, Creatinine 0.6L, Estimat Glomerular Filtration Rate , Glucose Level 99, Hemoglobin A1c 4.9, Uric Acid 8.7H, Calcium Level 8.9, Phosphorus Level 3.7, Magnesium Level 2.2, Iron Level 35L, Total Iron Binding Capacity 164L, Percent Iron Saturation 21, Unsaturated Iron Binding 129, Ferritin 528H, Total Bilirubin 0.9, Gamma Glutamyl Transpeptidase 21, Aspartate Amino Transf (AST/ SGOT) 16, Alanine Aminotransferase (ALT/SGPT) 10, Alkaline Phosphatase 73, Total Creatine Kinase 44, C-Reactive Protein, Quantitative 3.4H, Pro-B-Type Natriuretic Peptide 2350H, Total Protein 6.7, Albumin 2.7L, Globulin 4.0, Albumin/Globulin Ratio 0.6L, Triglycerides Level 110, Cholesterol Level 94, LDL Cholesterol 49L, HDL Cholesterol 23, Cholesterol/HDL Ratio 4.1, Vitamin B12 Level 874, Folate [Pending], Thyroid Stimulating Hormone (TSH) 2.550, Cortisol [ Pending] Current Medications Medications (Trade) Dose Ordered Sig/Kiet Route PRN Reason Start Time Stop Time Status Last Admin Dose Admin Acetaminophen (Tylenol) 650 mg Q4H PRN ORAL FEVER 05/09/17 06:45 06/08/17 06:44 Albuterol/ Ipratropium (DuoNeb 0.5-3(2.5)mg/3ml) 3 ml Q4H PRN HHN Shortness of Breath 05/09/17 06:45 05/14/17 06:44 Carvedilol (Coreg) 3.125 mg TWICE A DAY GT 05/09/17 09:00 06/08/17 08:59 05/10/17 09:07 Cefepime HCl/ Dextrose (Maxipime/D5W) 110 ml @ 220 mls/hr Q24H IVPB 05/09/17 16:00 05/16/17 15:59 05/09/17 15:24 Dextrose (Dextrose 50%) STAT PRN IV Hypoglycemia 05/09/17 06:45 06/08/17 06:44 Digoxin (Lanoxin) 0.125 mg DAILY GT 05/09/17 09:00 06/08/17 08:59 05/10/17 09:06 Heparin Sodium (Porcine) (Heparin 5000 units/ml) 5,000 units EVERY 12 HOURS SUBQ 05/09/17 09:00 06/08/17 08:59 05/10/17 09:05 Insulin Aspart (NovoLOG) EVERY 6 HOURS SUBQ 05/09/17 12:30 06/08/17 12:29 05/09/17 17:41 Lorazepam (Ativan 2mg/ml 1ml) 2 mg Q2H PRN IV For Anxiety 05/09/17 06:45 05/16/17 06:44 Morphine Sulfate (Morphine Sulfate) 4 mg Q4H PRN IVP Severe Pain (Pain Scale 7-10) 05/09/17 06:45 05/16/17 06:44 05/09/17 09:30 Ondansetron HCl (Zofran) 4 mg Q6H PRN IVP Nausea & Vomiting 05/09/17 06:45 06/08/17 06:44 Pantoprazole 40 mg 40 mg EVERY 12 HOURS IVP 05/09/17 12:30 06/08/17 12:29 05/10/17 09:03 Polyethylene Glycol (Miralax) 17 gm DAILYPRN PRN ORAL Constipation 05/09/17 06:45 06/08/17 06:44 JUDSON MURRELL May 10, 2017 11:50
--- NOTE | 2017-05-10 12:07 | Diagnostic Imaging Report ---
Indication: Dyspnea Comparison: 05/09/70 A single view chest radiograph was obtained. Findings: Small bilateral pleural effusions again noted. Cardiomegaly is moderate. Tracheostomy and pacemaker are again noted. No definite interstitial edema present at this time. Impression: Small bilateral pleural effusions
--- NOTE | 2017-05-10 14:45 | General Progress Note ---
Assessment/Plan Status: stable - from renal stand Assessment/Plan HypoKalemia- improved Hypotension leading to low Urine out put and renal failure- Severe Anemia possible sepsis- Vent dependent- Pacemaker previous conditions: 1. Acute on chronic respiratory failure with worsening pleural effusion. 2. Status post thoracentesis. 3. Worsening acute congestive heart failure, diastolic in nature. 4. Diabetes. 5. Urinary tract infection. 6. Sacral stage IV/ unstageable pressure ulcer, right lower lateral leg unstageable pressure ulcer, and left ischial tuberosity deep tissue injury, present on admission. Plan; Antibiotics- Transfusion as needed- more K supplement- optimize cardiac and pulmonary status Per orders Subjective ROS Limited/Unobtainable: Yes Allergies: Coded Allergies: No Known Allergies (Unverified , 02/04/17) Objective Last 24 Hour Vital Signs Date Time Temp Pulse Resp B/P Pulse Ox O2 Delivery O2 Flow Rate FiO2 05/10/17 13:04 70 17 35 05/10/17 12:00 40 05/10/17 11:43 99.1 70 20 118/86 100 Mechanical Ventilator 30 05/10/17 11:38 60 05/10/17 11:20 98.2 62 21 134/73 98 Mechanical Ventilator 35 05/10/17 11:06 66 17 35 05/10/17 09:07 76 122/82 05/10/17 09:06 76 05/10/17 08:56 70 18 35 05/10/17 08:00 98.2 76 18 122/82 100 Mechanical Ventilator 35 05/10/17 08:00 40 05/10/17 07:49 60 05/10/17 06:58 61 19 35 05/10/17 04:56 74 19 35 05/10/17 04:00 67 05/10/17 04:00 40 05/10/17 04:00 99.1 92 19 128/67 98 Mechanical Ventilator 40 05/10/17 03:11 67 17 35 05/10/17 01:10 66 22 35 05/10/17 00:00 99.8 86 21 128/75 100 Mechanical Ventilator 40 05/10/17 00:00 40 05/10/17 00:00 71 05/09/17 23:11 69 23 35 05/09/17 21:20 71 18 35 05/09/17 20:00 40 05/09/17 20:00 68 05/09/17 20:00 99.3 68 21 113/81 100 Mechanical Ventilator 40 05/09/17 19:25 70 18 35 05/09/17 17:41 72 99/72 05/09/17 16:38 72 20 35 05/09/17 16:00 40 05/09/17 16:00 98.1 67 18 99/72 100 Mechanical Ventilator 40 05/09/17 16:00 63 05/09/17 14:59 69 19 35 Intake and Output 05/09/17 05/10/17 19:00 07:00 Intake Total 400 ml 360 ml Output Total 300 ml 500 ml Balance 100 ml -140 ml IV Total 310 ml Tube Feeding 90 ml 360 ml Output Urine Total 300 ml 500 ml # Bowel Movements 1 Laboratory Tests 05/10/17 04:00: White Blood Count 7.5, Red Blood Count 2.25L, Hemoglobin 7.2L, Hematocrit 22.1L , Mean Corpuscular Volume 98, Mean Corpuscular Hemoglobin 31.8H, Mean Corpuscular Hemoglobin Concent 32.3, Red Cell Distribution Width 16.2H, Platelet Count 165, Mean Platelet Volume 7.1, Neutrophils (%) (Auto) , Lymphocytes (%) (Auto) , Monocytes (%) (Auto) , Eosinophils (%) (Auto) , Basophils (%) (Auto) , Arterial Blood pH 7.525H, Arterial Blood Partial Pressure CO2 37.9, Arterial Blood Partial Pressure O2 135.2H, Arterial Blood HCO3 30.6H, Arterial Blood Oxygen Saturation 98.1H, Arterial Blood Base Excess 7.3, Reyes Test Positive, Sodium Level 139, Potassium Level 3.3L, Chloride Level 99, Carbon Dioxide Level 32H, Anion Gap 8, Blood Urea Nitrogen 27H, Creatinine 0.6L, Estimat Glomerular Filtration Rate , Glucose Level 99, Hemoglobin A1c 4.9, Uric Acid 8.7H, Calcium Level 8.9, Phosphorus Level 3.7, Magnesium Level 2.2, Iron Level 35L, Total Iron Binding Capacity 164L, Percent Iron Saturation 21, Unsaturated Iron Binding 129, Ferritin 528H, Total Bilirubin 0.9, Gamma Glutamyl Transpeptidase 21, Aspartate Amino Transf (AST/ SGOT) 16, Alanine Aminotransferase (ALT/SGPT) 10, Alkaline Phosphatase 73, Total Creatine Kinase 44, C-Reactive Protein, Quantitative 3.4H, Pro-B-Type Natriuretic Peptide 2350H, Total Protein 6.7, Albumin 2.7L, Globulin 4.0, Albumin/Globulin Ratio 0.6L, Triglycerides Level 110, Cholesterol Level 94, LDL Cholesterol 49L, HDL Cholesterol 23, Cholesterol/HDL Ratio 4.1, Vitamin B12 Level 874, Folate [Pending], Thyroid Stimulating Hormone (TSH) 2.550, Cortisol [ Pending], Cortisol AM Sample 10.1 Height (Feet): 5 Height (Inches): 10.00 Weight (Pounds): 160 General Appearance: no apparent distress Objective no change ASA COSME May 10, 2017 14:45
[2017-05-10] MEDS: Cefepime HCl 2 GM in D5W 110 ML IVPB SCH (17:38)
[2017-05-10] MEDS ORDERED: Tubing IV Secondary IV ONE (17:45)
[2017-05-10] MEDS ORDERED: NS 275ml ONE (17:45)
--- NOTE | 2017-05-10 19:10 | Cardiology Progress Note ---
Assessment/Plan Assessment/Plan perm afib lv syustokic dysfucntion hs mr fucntion quad anemia electolyte abn watch stool ob s/p prbc tx bp improved xarelto on hold to reeume if no gi bleeding watch respiration may need diuretic if develops chf d/w son d/w speech language pathologist prn noted Subjective ROS Limited/Unobtainable: Yes Cardiovascular: Denies: chest pain, lightheadedness, palpitations Respiratory: Denies: shortness of breath Gastrointestinal/Abdominal: Denies: abdominal pain Genitourinary: Denies: burning Subjective on the vent Objective Last 24 Hour Vital Signs Date Time Temp Pulse Resp B/P Pulse Ox O2 Delivery O2 Flow Rate FiO2 05/10/17 17:30 98.9 61 21 127/77 100 Mechanical Ventilator 30 05/10/17 17:19 64 128/87 05/10/17 16:47 64 16 35 05/10/17 16:00 99.5 63 17 128/87 100 Mechanical Ventilator 40 05/10/17 16:00 40 05/10/17 15:35 98.4 64 20 124/76 100 Mechanical Ventilator 30 05/10/17 15:08 62 05/10/17 14:50 98.3 61 20 120/72 100 Mechanical Ventilator 30 05/10/17 14:41 65 16 35 05/10/17 14:15 98.4 63 21 128/82 100 Mechanical Ventilator 30 05/10/17 13:04 70 17 35 05/10/17 12:28 98.6 69 20 124/84 100 Mechanical Ventilator 30 05/10/17 12:00 40 05/10/17 11:43 99.1 70 20 118/86 100 Mechanical Ventilator 30 05/10/17 11:38 60 05/10/17 11:20 98.2 62 21 134/73 98 Mechanical Ventilator 35 05/10/17 11:06 66 17 35 05/10/17 09:07 76 122/82 05/10/17 09:06 76 05/10/17 08:56 70 18 35 05/10/17 08:00 98.2 76 18 122/82 100 Mechanical Ventilator 35 05/10/17 08:00 40 05/10/17 07:49 60 05/10/17 06:58 61 19 35 05/10/17 04:56 74 19 35 05/10/17 04:00 67 05/10/17 04:00 40 05/10/17 04:00 99.1 92 19 128/67 98 Mechanical Ventilator 40 05/10/17 03:11 67 17 35 05/10/17 01:10 66 22 35 05/10/17 00:00 99.8 86 21 128/75 100 Mechanical Ventilator 40 05/10/17 00:00 40 05/10/17 00:00 71 05/09/17 23:11 69 23 35 05/09/17 21:20 71 18 35 05/09/17 20:00 40 05/09/17 20:00 68 05/09/17 20:00 99.3 68 21 113/81 100 Mechanical Ventilator 40 05/09/17 19:25 70 18 35 General Appearance: alert Neck: supple Cardiovascular: normal rate, regular rhythm Respiratory/Chest: lungs clear - anteriroly Abdomen: normal bowel sounds, non tender, soft Extremities: no swelling Intake and Output 05/09/17 05/10/17 19:00 07:00 Intake Total 400 ml 360 ml Output Total 300 ml 500 ml Balance 100 ml -140 ml IV Total 310 ml Tube Feeding 90 ml 360 ml Output Urine Total 300 ml 500 ml # Bowel Movements 1 Laboratory Tests Test 05/10/17 04:00 White Blood Count 7.5 K/UL (4.8-10.8) Red Blood Count 2.25 M/UL (4.70-6.10) L Hemoglobin 7.2 G/DL (14.2-18.0) L Hematocrit 22.1 % (42.0-52.0) L Mean Corpuscular Volume 98 FL (80-99) Mean Corpuscular Hemoglobin 31.8 PG (27.0-31.0) H Mean Corpuscular Hemoglobin Concent 32.3 G/DL (32.0-36.0) Red Cell Distribution Width 16.2 % (11.6-14.8) H Platelet Count 165 K/UL (150-450) Mean Platelet Volume 7.1 FL (6.5-10.1) Neutrophils (%) (Auto) % (45.0-75.0) Lymphocytes (%) (Auto) % (20.0-45.0) Monocytes (%) (Auto) % (1.0-10.0) Eosinophils (%) (Auto) % (0.0-3.0) Basophils (%) (Auto) % (0.0-2.0) Arterial Blood pH 7.525 (7.350-7.450) Arterial Blood Partial Pressure CO2 37.9 mmHg (35.0-45.0) Arterial Blood Partial Pressure O2 135.2 mmHg (75.0-100.0) H Arterial Blood HCO3 30.6 mmol/L (22.0-26.0) H Arterial Blood Oxygen Saturation 98.1 % (92.0-98.0) H Arterial Blood Base Excess 7.3 Reyes Test Positive Sodium Level 139 mEQ/L (135-145) Potassium Level 3.3 mEQ/L (3.4-4.9) L Chloride Level 99 mEQ/L (98-107) Carbon Dioxide Level 32 mEQ/L (20-30) H Anion Gap 8 (5-15) Blood Urea Nitrogen 27 mg/dL (7-23) H Creatinine 0.6 mg/dL (0.7-1.2) L Estimat Glomerular Filtration Rate mL/min (>60) Glucose Level 99 mg/dL (74-106) Hemoglobin A1c 4.9 % (< 6.0) Uric Acid 8.7 mg/dL (3.0-7.5) H Calcium Level 8.9 mg/dL (8.6-10.2) Phosphorus Level 3.7 mg/dL (2.5-4.8) Magnesium Level 2.2 mg/dL (1.7-2.5) Iron Level 35 ug/dL (59-158) L Total Iron Binding Capacity 164 ug/dL (250-400) L Percent Iron Saturation 21 % (15-50) Unsaturated Iron Binding 129 ug/dL (112-346) Ferritin 528 ng/mL (10-230) H Total Bilirubin 0.9 mg/dL (0.0-1.2) Gamma Glutamyl Transpeptidase 21 U/L (8-61) Aspartate Amino Transf (AST/SGOT) 16 U/L (5-40) Alanine Aminotransferase (ALT/SGPT) 10 U/L (3-41) Alkaline Phosphatase 73 U/L (40-129) Total Creatine Kinase 44 U/L (38-174) C-Reactive Protein, Quantitative 3.4 mg/dL (< 0.5) H Pro-B-Type Natriuretic Peptide 2350 pg/mL (0-125) H Total Protein 6.7 g/dL (6.6-8.7) Albumin 2.7 g/dL (3.5-5.2) L Globulin 4.0 g/dL Albumin/Globulin Ratio 0.6 (1.0-2.7) L Triglycerides Level 110 mg/dL (< 150) Cholesterol Level 94 mg/dL (< 200) LDL Cholesterol 49 mg/dL (60-99) L HDL Cholesterol 23 mg/dL (> 60) Cholesterol/HDL Ratio 4.1 (3.3-4.4) Vitamin B12 Level 874 pg/mL (211-946) Folate Pending Thyroid Stimulating Hormone (TSH) 2.550 uIU/mL (0.300-4.500) Cortisol 10.1 ug/dL Microbiology Date/Time Source Procedure Growth Status 05/09/17 03:00 Blood Blood Culture - Preliminary Resulted 05/09/17 02:45 Blood Blood Culture - Preliminary Resulted 05/09/17 09:30 Sputum Gram Stain - Final Resulted 05/09/17 09:30 Sputum Sputum Culture Pending Resulted 05/09/17 02:59 Urine,Clean Catch Urine Culture - Preliminary Gram Negative Bacillus 1 Resulted BRIDGER CONDON May 10, 2017 19:10
--- NOTE | 2017-05-10 20:18 | Infectious Diseases Prog Note ---
Assessment/Plan Assessment/Plan A: Low-grade fever, SP Bacteremia : GPC may need to ro PPM infection by RONA Pyuria/probable urinary tract infection UCx : GNR Rule out pneumonia. Pleural effusion. Sacral decubitus, not grossly infected. quadriplegia Atrial fibrillation PE History of pacemaker HTN COPD Status post trach and PEG placement Gout Diabetes PLAN: continue the patient on cefepime d# 2 , add IV Vanco day #1. Monitor CBC. Monitor BMP. Monitor cultures (blood, urine, and sputum). Monitor chest x-ray. repeat Blood cx may need RONA Subjective Allergies: Coded Allergies: No Known Allergies (Unverified , 02/04/17) Subjective pt is sleeping most of the day Objective Vital Signs Last 24 Hour Vital Signs Date Time Temp Pulse Resp B/P Pulse Ox O2 Delivery O2 Flow Rate FiO2 05/10/17 19:58 99.4 60 17 118/88 100 Mechanical Ventilator 05/10/17 17:30 98.9 61 21 127/77 100 Mechanical Ventilator 30 05/10/17 17:19 64 128/87 05/10/17 16:47 64 16 35 05/10/17 16:00 99.5 63 17 128/87 100 Mechanical Ventilator 40 05/10/17 16:00 40 05/10/17 15:35 98.4 64 20 124/76 100 Mechanical Ventilator 30 05/10/17 15:08 62 05/10/17 14:50 98.3 61 20 120/72 100 Mechanical Ventilator 30 05/10/17 14:41 65 16 35 05/10/17 14:15 98.4 63 21 128/82 100 Mechanical Ventilator 30 05/10/17 13:04 70 17 35 05/10/17 12:28 98.6 69 20 124/84 100 Mechanical Ventilator 30 05/10/17 12:00 40 05/10/17 11:43 99.1 70 20 118/86 100 Mechanical Ventilator 30 05/10/17 11:38 60 05/10/17 11:20 98.2 62 21 134/73 98 Mechanical Ventilator 35 05/10/17 11:06 66 17 35 05/10/17 09:07 76 122/82 05/10/17 09:06 76 05/10/17 08:56 70 18 35 05/10/17 08:00 98.2 76 18 122/82 100 Mechanical Ventilator 35 05/10/17 08:00 40 05/10/17 07:49 60 05/10/17 06:58 61 19 35 05/10/17 04:56 74 19 35 05/10/17 04:00 67 05/10/17 04:00 40 05/10/17 04:00 99.1 92 19 128/67 98 Mechanical Ventilator 40 05/10/17 03:11 67 17 35 05/10/17 01:10 66 22 35 05/10/17 00:00 99.8 86 21 128/75 100 Mechanical Ventilator 40 05/10/17 00:00 40 05/10/17 00:00 71 05/09/17 23:11 69 23 35 05/09/17 21:20 71 18 35 Height (Feet): 5 Height (Inches): 10.00 Weight (Pounds): 160 HEENT: anicteric Respiratory/Chest: no respiratory distress, no accessory muscle use Cardiovascular: regular rhythm Abdomen: no organomegaly Microbiology Date/Time Source Procedure Growth Status 05/09/17 03:00 Blood Blood Culture - Preliminary Resulted 05/09/17 02:45 Blood Blood Culture - Preliminary Resulted 05/09/17 09:30 Sputum Gram Stain - Final Resulted 05/09/17 09:30 Sputum Sputum Culture Pending Resulted 05/09/17 02:59 Urine,Clean Catch Urine Culture - Preliminary Gram Negative Bacillus 1 Resulted Laboratory Tests Test 05/10/17 04:00 05/10/17 18:20 White Blood Count 7.5 K/UL (4.8-10.8) Red Blood Count 2.25 M/UL (4.70-6.10) L Hemoglobin 7.2 G/DL (14.2-18.0) L Hematocrit 22.1 % (42.0-52.0) L Mean Corpuscular Volume 98 FL (80-99) Mean Corpuscular Hemoglobin 31.8 PG (27.0-31.0) H Mean Corpuscular Hemoglobin Concent 32.3 G/DL (32.0-36.0) Red Cell Distribution Width 16.2 % (11.6-14.8) H Platelet Count 165 K/UL (150-450) Mean Platelet Volume 7.1 FL (6.5-10.1) Neutrophils (%) (Auto) % (45.0-75.0) Lymphocytes (%) (Auto) % (20.0-45.0) Monocytes (%) (Auto) % (1.0-10.0) Eosinophils (%) (Auto) % (0.0-3.0) Basophils (%) (Auto) % (0.0-2.0) Arterial Blood pH 7.525 (7.350-7.450) Arterial Blood Partial Pressure CO2 37.9 mmHg (35.0-45.0) Arterial Blood Partial Pressure O2 135.2 mmHg (75.0-100.0) H Arterial Blood HCO3 30.6 mmol/L (22.0-26.0) H Arterial Blood Oxygen Saturation 98.1 % (92.0-98.0) H Arterial Blood Base Excess 7.3 Reyes Test Positive Sodium Level 139 mEQ/L (135-145) Potassium Level 3.3 mEQ/L (3.4-4.9) L Chloride Level 99 mEQ/L (98-107) Carbon Dioxide Level 32 mEQ/L (20-30) H Anion Gap 8 (5-15) Blood Urea Nitrogen 27 mg/dL (7-23) H Creatinine 0.6 mg/dL (0.7-1.2) L Estimat Glomerular Filtration Rate mL/min (>60) Glucose Level 99 mg/dL (74-106) Hemoglobin A1c 4.9 % (< 6.0) Uric Acid 8.7 mg/dL (3.0-7.5) H Calcium Level 8.9 mg/dL (8.6-10.2) Phosphorus Level 3.7 mg/dL (2.5-4.8) Magnesium Level 2.2 mg/dL (1.7-2.5) Iron Level 35 ug/dL (59-158) L Total Iron Binding Capacity 164 ug/dL (250-400) L Percent Iron Saturation 21 % (15-50) Unsaturated Iron Binding 129 ug/dL (112-346) Ferritin 528 ng/mL (10-230) H Total Bilirubin 0.9 mg/dL (0.0-1.2) Gamma Glutamyl Transpeptidase 21 U/L (8-61) Aspartate Amino Transf (AST/SGOT) 16 U/L (5-40) Alanine Aminotransferase (ALT/SGPT) 10 U/L (3-41) Alkaline Phosphatase 73 U/L (40-129) Total Creatine Kinase 44 U/L (38-174) C-Reactive Protein, Quantitative 3.4 mg/dL (< 0.5) H Pro-B-Type Natriuretic Peptide 2350 pg/mL (0-125) H Total Protein 6.7 g/dL (6.6-8.7) Albumin 2.7 g/dL (3.5-5.2) L Globulin 4.0 g/dL Albumin/Globulin Ratio 0.6 (1.0-2.7) L Triglycerides Level 110 mg/dL (< 150) Cholesterol Level 94 mg/dL (< 200) LDL Cholesterol 49 mg/dL (60-99) L HDL Cholesterol 23 mg/dL (> 60) Cholesterol/HDL Ratio 4.1 (3.3-4.4) Vitamin B12 Level 874 pg/mL (211-946) Folate Pending Thyroid Stimulating Hormone (TSH) 2.550 uIU/mL (0.300-4.500) Cortisol 10.1 ug/dL Stool Occult Blood Pending Current Medications Medications (Trade) Dose Ordered Sig/Kiet Route PRN Reason Start Time Stop Time Status Last Admin Dose Admin Acetaminophen (Tylenol) 650 mg Q4H PRN ORAL FEVER 05/09/17 06:45 06/08/17 06:44 Albuterol/ Ipratropium (DuoNeb 0.5-3(2.5)mg/3ml) 3 ml Q4H PRN HHN Shortness of Breath 05/09/17 06:45 05/14/17 06:44 Carvedilol (Coreg) 3.125 mg TWICE A DAY GT 05/09/17 09:00 06/08/17 08:59 05/10/17 17:19 Cefepime HCl/ Dextrose (Maxipime/D5W) 110 ml @ 220 mls/hr Q24H IVPB 05/09/17 16:00 05/16/17 15:59 05/10/17 17:38 Dextrose (Dextrose 50%) STAT PRN IV Hypoglycemia 05/09/17 06:45 06/08/17 06:44 Digoxin (Lanoxin) 0.125 mg DAILY GT 05/09/17 09:00 06/08/17 08:59 05/10/17 09:06 Heparin Sodium (Porcine) (Heparin 5000 units/ml) 5,000 units EVERY 12 HOURS SUBQ 05/09/17 09:00 06/08/17 08:59 05/10/17 09:05 Insulin Aspart (NovoLOG) EVERY 6 HOURS SUBQ 05/09/17 12:30 06/08/17 12:29 05/10/17 17:07 Lorazepam (Ativan 2mg/ml 1ml) 2 mg Q2H PRN IV For Anxiety 05/09/17 06:45 05/16/17 06:44 Morphine Sulfate (Morphine Sulfate) 4 mg Q4H PRN IVP Severe Pain (Pain Scale 7-10) 05/09/17 06:45 05/16/17 06:44 05/09/17 09:30 Ondansetron HCl (Zofran) 4 mg Q6H PRN IVP Nausea & Vomiting 05/09/17 06:45 06/08/17 06:44 Pantoprazole 40 mg 40 mg EVERY 12 HOURS IVP 05/09/17 12:30 06/08/17 12:29 05/10/17 09:03 Polyethylene Glycol (Miralax) 17 gm DAILYPRN PRN ORAL Constipation 05/09/17 06:45 06/08/17 06:44 ENID DEVI M.D. May 10, 2017 20:18
[2017-05-10] MEDS ORDERED: VANCOMYCIN IVPB ONE (22:00)
[2017-05-10] MEDS ORDERED: D5W IVPB ONE (22:00)
[2017-05-11] MEDS: NovoLOG Insulin Flexpen SUBQ SCH ×3 (00:01→12:49)
--- NOTE | 2017-05-11 00:56 | Wound Care Consultation ---
Wound Assessment Wound Assessment #1: Wound Present on Admission: Yes New Wound: No Status Change of Wound: No Wound Location Body Site Modif: mid Wound Location Body Site: sacral Wound Type: pressure ulcer Myrna Test: Does not Myrna Pressure Ulcer Stage: IV/unstageable Wound Thickness: Full Thickness Wound Length: 8.5 Wound Width: 8.5 Wound Depth: 2.5 Percent of Wound Mov[place]/Red: 100 Wound Drainage Description: Serosanguineous Wound Drainage Amount: Moderate Wound Drainage Odor: None/Absent Tissue Surrounding Wound: Macerated Wound Undermining at 12:00: 2.0 Wound Undermining at 3:00: 3.5 Wound General Appearance: Reddened, Draining, Bone Palpable Wound Assessment #2: Wound Number: #2 Wound Present on Admission: Yes New Wound: No Status Change of Wound: No Wound Location Body Site Modif: right, lower, lateral Wound Location Body Site: leg Wound Type: pressure ulcer Myrna Test: Does not Myrna Pressure Ulcer Stage: III Wound Thickness: Full Thickness Wound Length: 3.5 Wound Width: 1.5 Wound Depth: 0.2 Percent of Wound Movico/Red: 100 Wound Drainage Description: Serosanguineous Wound Drainage Amount: Scant Wound Drainage Odor: None/Absent Tissue Surrounding Wound: Indurated Wound General Appearance: Reddened, Draining Wound Assessment #3: Wound Number: #3 Wound Present on Admission: Yes New Wound: No Status Change of Wound: No Wound Location Body Site Modif: left Wound Location Body Site: ischial tuberosity Wound Type: pressure ulcer Myrna Test: Does not Myrna Wound Thickness: Full Thickness - scar tissue Wound Length: 3.0 Wound Width: 3.0 Percent of Wound Movico/Red: 100 Wound Drainage Amount: None Wound Drainage Odor: None/Absent Tissue Surrounding Wound: Intact Wound General Appearance: Asymptomatic, Reddened Wound Comment #1 Sacral IV pressure ulcer #2 Right lower lateral leg stage III pressure ulcer #3 Left ischial tuberosity full thickness scar tissue pressure ulcer Recommendation -Sacral pressure ulcer Cleanse with saline, pat dry, apply hydrogel to wound bed, cover with calcium alginate, secure with Biatain silicone drg daily and PRN soiled/dislodged -Right lower lateral leg Cleanse with saline pat dry apply Triad cream cover with bordered gauze daily and PRN soiled/dislodged -Optimize nutrition -Keep clean and dry -Turn and reposition -Low air loss mattress -Offload both heels -Heel protector on both heels -Assess and f/u accordingly for any changes VICK RODRIGUEZ RN May 11, 2017 00:56
[2017-05-11 04:00] VITALS: BP 127/78
[2017-05-11 05:03] LABS: BASOPHILS % (AUTO) 0.9 % (0.0-2.0); EOSINOPHILS % (AUTO) 9.9 % (0.0-3.0); MEAN CORPUSCULAR HEMOGLOBIN 31.5 PG (27.0-31.0); MEAN CORPUSCULAR HGB CONC 32.5 G/DL (32.0-36.0); MEAN CORPUSCULAR VOLUME 97 FL (80-99); MEAN PLATELET VOLUME 6.7 FL (6.5-10.1); MONOCYTES % (AUTO) 8.3 % (1.0-10.0); NEUTROPHILS % (AUTO) 70.9 % (45.0-75.0); PLATELET COUNT 174 K/UL (150-450); RED BLOOD COUNT 2.88 M/UL (4.70-6.10); RED CELL DISTRIBUTION WIDTH 16.4 % (11.6-14.8); WHITE BLOOD COUNT 7.8 K/UL (4.8-10.8)
[2017-05-11 05:34] LABS: ALANINE AMINOTRANSFERASE 8 U/L (3-41); ALBUMIN/GLOBULIN RATIO 0.5 (1.0-2.7); ANION GAP 11 (5-15); ASPARTATE AMINO TRANSFERASE 16 U/L (5-40); CALCIUM 8.6 mg/dL (8.6-10.2); CARBON DIOXIDE 30 mEQ/L (20-30); CHLORIDE 100 mEQ/L (98-107); CREATININE 0.6 mg/dL (0.7-1.2); HEMOLYSIS 7; PHOSPHORUS 3.4 mg/dL (2.5-4.8); POTASSIUM 3.6 mEQ/L (3.4-4.9); SODIUM 141 mEQ/L (135-145); TOTAL PROTEIN 7.1 g/dL (6.6-8.7)
[2017-05-11 08:36] VITALS: BP 143/85
[2017-05-11] MEDS: Pantoprazole Inj IVP SCH (08:37)
[2017-05-11] MEDS: Digoxin 0.125mg tab GT SCH (08:38)
[2017-05-11] MEDS: Heparin 5000 units/ml inj SUBQ SCH (08:41)
--- NOTE | 2017-05-11 09:53 | General Progress Note ---
Assessment/Plan Status: stable - from renal stand Assessment/Plan status: HypoKalemia- improved Hypotension leading to low Urine out put and renal failure- Severe Anemia possible sepsis- Vent dependent- Pacemaker previous conditions: 1. Acute on chronic respiratory failure with worsening pleural effusion. 2. Status post thoracentesis. 3. Worsening acute congestive heart failure, diastolic in nature. 4. Diabetes. 5. Urinary tract infection. 6. Sacral stage IV/ unstageable pressure ulcer, right lower lateral leg unstageable pressure ulcer, and left ischial tuberosity deep tissue injury, present on admission. Plan; Antibiotics- Transfusion as needed- more K supplement- optimize cardiac and pulmonary status Per orders Subjective ROS Limited/Unobtainable: No Constitutional: Reports: malaise Allergies: Coded Allergies: No Known Allergies (Unverified , 02/04/17) Objective Last 24 Hour Vital Signs Date Time Temp Pulse Resp B/P Pulse Ox O2 Delivery O2 Flow Rate FiO2 05/11/17 08:38 69 05/11/17 08:38 69 143/85 05/11/17 08:36 98.2 69 18 143/85 100 Mechanical Ventilator 05/11/17 08:32 62 20 30 05/11/17 07:27 63 17 30 05/11/17 05:05 60 17 30 05/11/17 04:00 40 05/11/17 04:00 99.2 65 17 127/78 99 Mechanical Ventilator 05/11/17 04:00 71 05/11/17 03:04 61 17 30 05/11/17 01:30 60 32 30 05/11/17 00:00 65 05/11/17 00:00 40 05/10/17 23:50 99.1 68 18 119/66 100 Mechanical Ventilator 05/10/17 23:30 65 17 30 05/10/17 22:33 68 17 Mechanical Ventilator 30 05/10/17 21:30 62 19 30 05/10/17 20:00 40 05/10/17 20:00 64 05/10/17 19:58 99.4 60 17 118/88 100 Mechanical Ventilator 05/10/17 19:30 63 17 30 05/10/17 17:30 98.9 61 21 127/77 100 Mechanical Ventilator 30 05/10/17 17:19 64 128/87 05/10/17 16:47 64 16 35 05/10/17 16:00 99.5 63 17 128/87 100 Mechanical Ventilator 40 05/10/17 16:00 40 05/10/17 15:35 98.4 64 20 124/76 100 Mechanical Ventilator 30 05/10/17 15:08 62 05/10/17 14:50 98.3 61 20 120/72 100 Mechanical Ventilator 30 05/10/17 14:41 65 16 35 05/10/17 14:15 98.4 63 21 128/82 100 Mechanical Ventilator 30 05/10/17 13:04 70 17 35 05/10/17 12:28 98.6 69 20 124/84 100 Mechanical Ventilator 30 05/10/17 12:00 40 05/10/17 11:43 99.1 70 20 118/86 100 Mechanical Ventilator 30 05/10/17 11:38 60 05/10/17 11:20 98.2 62 21 134/73 98 Mechanical Ventilator 35 05/10/17 11:06 66 17 35 Intake and Output 05/10/17 05/11/17 19:00 07:00 Intake Total 1217 ml 785.0 ml Output Total 650 ml 400 ml Balance 567 ml 385.0 ml Free Water 180 ml 50 ml IV Total 110 ml 325.0 ml Tube Feeding 390 ml 360 ml Blood Product 537 ml Other 50 ml Output Urine Total 650 ml 400 ml # Bowel Movements 5 Laboratory Tests 05/10/17 18:20: Stool Occult Blood [Pending] 05/11/17 03:45: White Blood Count 7.8, Red Blood Count 2.88L, Hemoglobin 9.1L, Hematocrit 27.9L , Mean Corpuscular Volume 97, Mean Corpuscular Hemoglobin 31.5H, Mean Corpuscular Hemoglobin Concent 32.5, Red Cell Distribution Width 16.4H, Platelet Count 174, Mean Platelet Volume 6.7, Neutrophils (%) (Auto) 70.9, Lymphocytes (%) (Auto) 10.0L, Monocytes (%) (Auto) 8.3, Eosinophils (%) (Auto) 9.9H, Basophils (%) (Auto) 0.9, Sodium Level 141, Potassium Level 3.6, Chloride Level 100, Carbon Dioxide Level 30, Anion Gap 11, Blood Urea Nitrogen 22, Creatinine 0.6L, Estimat Glomerular Filtration Rate , Glucose Level 110H, Calcium Level 8.6, Phosphorus Level 3.4, Magnesium Level 2.0, Total Bilirubin 1.0, Aspartate Amino Transf (AST/SGOT) 16, Alanine Aminotransferase (ALT/SGPT) 8 , Alkaline Phosphatase 80, Total Protein 7.1, Albumin 2.6L, Globulin 4.5, Albumin/Globulin Ratio 0.5L Height (Feet): 5 Height (Inches): 10.00 Weight (Pounds): 160 General Appearance: no apparent distress Objective no change ASA COSME May 11, 2017 09:53
[2017-05-11] MEDS ORDERED: Vancomycin 750mg/D5W 275ml IVPB SCH ×2 (10:00)
[2017-05-11 11:18] VITALS: BP 154/81
--- NOTE | 2017-05-11 12:00 | Pulmonology Progress Note ---
Assessment/Plan Problems: (1) Respiratory distress (2) Hypokalemia (3) CHF (congestive heart failure) (4) Pleural effusion (5) Pacemaker (6) History of CVA (cerebrovascular accident) Respiratory: monitor respiratory rate Cardiac: start pressors, stop pressors Renal: keep IV fluid Infectious Disease: check cultures Gastrointestinal: continue feedings/current rate, hold feedings Endocrine: check TSH Hematologic: monitor H/H Affect: PRN ativan Prophylaxis: Heparin Subjective ROS Limited/Unobtainable: No Constitutional: Reports: no symptoms HEENT: Repors: no symptoms Respiratory: Reports: no symptoms Allergies: Coded Allergies: No Known Allergies (Unverified , 02/04/17) Objective Last 24 Hour Vital Signs Date Time Temp Pulse Resp B/P Pulse Ox O2 Delivery O2 Flow Rate FiO2 05/11/17 11:18 97.8 63 17 154/81 100 Mechanical Ventilator 05/11/17 10:53 60 16 30 05/11/17 08:38 69 05/11/17 08:38 69 143/85 05/11/17 08:36 98.2 69 18 143/85 100 Mechanical Ventilator 05/11/17 08:32 62 20 30 05/11/17 08:00 40 05/11/17 07:46 64 05/11/17 07:27 63 17 30 05/11/17 05:05 60 17 30 05/11/17 04:00 40 05/11/17 04:00 99.2 65 17 127/78 99 Mechanical Ventilator 05/11/17 04:00 71 05/11/17 03:04 61 17 30 05/11/17 01:30 60 32 30 05/11/17 00:00 65 05/11/17 00:00 40 05/10/17 23:50 99.1 68 18 119/66 100 Mechanical Ventilator 05/10/17 23:30 65 17 30 05/10/17 22:33 68 17 Mechanical Ventilator 30 05/10/17 21:30 62 19 30 05/10/17 20:00 40 05/10/17 20:00 64 05/10/17 19:58 99.4 60 17 118/88 100 Mechanical Ventilator 05/10/17 19:30 63 17 30 05/10/17 17:30 98.9 61 21 127/77 100 Mechanical Ventilator 30 05/10/17 17:19 64 128/87 05/10/17 16:47 64 16 35 05/10/17 16:00 99.5 63 17 128/87 100 Mechanical Ventilator 40 05/10/17 16:00 40 05/10/17 15:35 98.4 64 20 124/76 100 Mechanical Ventilator 30 05/10/17 15:08 62 05/10/17 14:50 98.3 61 20 120/72 100 Mechanical Ventilator 30 05/10/17 14:41 65 16 35 05/10/17 14:15 98.4 63 21 128/82 100 Mechanical Ventilator 30 05/10/17 13:04 70 17 35 05/10/17 12:28 98.6 69 20 124/84 100 Mechanical Ventilator 30 05/10/17 12:00 40 Intake and Output 05/10/17 05/11/17 19:00 07:00 Intake Total 1217 ml 785.0 ml Output Total 650 ml 400 ml Balance 567 ml 385.0 ml Free Water 180 ml 50 ml IV Total 110 ml 325.0 ml Tube Feeding 390 ml 360 ml Blood Product 537 ml Other 50 ml Output Urine Total 650 ml 400 ml # Bowel Movements 5 General Appearance: WD/WN HEENT: normocephalic, atraumatic Respiratory/Chest: chest wall non-tender, normal breath sounds Cardiovascular: normal peripheral pulses, regular rhythm Abdomen: soft, non tender, no organomegaly Genitourinary: normal external genitalia Skin: no rash, no lesions Microbiology Date/Time Source Procedure Growth Status 05/09/17 03:00 Blood Blood Culture - Preliminary Staphylococcus Sp Coag Neg Resulted 05/09/17 02:45 Blood Blood Culture - Preliminary Staphylococcus Sp Coag Neg Resulted 05/09/17 09:30 Sputum Gram Stain - Final Resulted 05/09/17 09:30 Sputum Culture - Preliminary Gram Negative Bacillus 1 Gram Negative Bacillus 2 Resulted 05/09/17 07:00 Nasal Nares MRSA Culture - Final NO METHICILLIN RESISTANT STAPH AUREUS... Complete 05/09/17 02:59 Urine,Clean Catch Urine Culture - Preliminary Klebsiella Pneumoniae Esbl Gram Negative Bacillus 2 Resulted 05/09/17 21:00 Sacral Wound Gram Stain Pending Resulted 05/09/17 21:00 Sacral Wound Wound Culture - Preliminary Resulted 05/09/17 07:00 Rectum VRE Culture - Final Enterococcus Faecalis - Vre Complete Laboratory Tests 05/10/17 18:20: Stool Occult Blood [Pending] 05/11/17 03:45: White Blood Count 7.8, Red Blood Count 2.88L, Hemoglobin 9.1L, Hematocrit 27.9L , Mean Corpuscular Volume 97, Mean Corpuscular Hemoglobin 31.5H, Mean Corpuscular Hemoglobin Concent 32.5, Red Cell Distribution Width 16.4H, Platelet Count 174, Mean Platelet Volume 6.7, Neutrophils (%) (Auto) 70.9, Lymphocytes (%) (Auto) 10.0L, Monocytes (%) (Auto) 8.3, Eosinophils (%) (Auto) 9.9H, Basophils (%) (Auto) 0.9, Sodium Level 141, Potassium Level 3.6, Chloride Level 100, Carbon Dioxide Level 30, Anion Gap 11, Blood Urea Nitrogen 22, Creatinine 0.6L, Estimat Glomerular Filtration Rate , Glucose Level 110H, Calcium Level 8.6, Phosphorus Level 3.4, Magnesium Level 2.0, Total Bilirubin 1.0, Aspartate Amino Transf (AST/SGOT) 16, Alanine Aminotransferase (ALT/SGPT) 8 , Alkaline Phosphatase 80, Total Protein 7.1, Albumin 2.6L, Globulin 4.5, Albumin/Globulin Ratio 0.5L Current Medications Medications (Trade) Dose Ordered Sig/Kiet Route PRN Reason Start Time Stop Time Status Last Admin Dose Admin Acetaminophen (Tylenol) 650 mg Q4H PRN ORAL FEVER 05/09/17 06:45 06/08/17 06:44 Albuterol/ Ipratropium (DuoNeb 0.5-3(2.5)mg/3ml) 3 ml Q4H PRN HHN Shortness of Breath 05/09/17 06:45 05/14/17 06:44 Carvedilol (Coreg) 3.125 mg TWICE A DAY GT 05/09/17 09:00 06/08/17 08:59 05/11/17 08:38 Cefepime HCl/ Dextrose (Maxipime/D5W) 110 ml @ 220 mls/hr Q24H IVPB 05/09/17 16:00 05/16/17 15:59 05/10/17 17:38 Dextrose (Dextrose 50%) STAT PRN IV Hypoglycemia 05/09/17 06:45 06/08/17 06:44 Digoxin (Lanoxin) 0.125 mg DAILY GT 05/09/17 09:00 06/08/17 08:59 05/11/17 08:38 Heparin Sodium (Porcine) (Heparin 5000 units/ml) 5,000 units EVERY 12 HOURS SUBQ 05/09/17 09:00 06/08/17 08:59 05/11/17 08:41 Insulin Aspart (NovoLOG) EVERY 6 HOURS SUBQ 05/09/17 12:30 06/08/17 12:29 05/11/17 00:01 Lorazepam (Ativan 2mg/ml 1ml) 2 mg Q2H PRN IV For Anxiety 05/09/17 06:45 05/16/17 06:44 Morphine Sulfate (Morphine Sulfate) 4 mg Q4H PRN IVP Severe Pain (Pain Scale 7-10) 05/09/17 06:45 05/16/17 06:44 05/09/17 09:30 Ondansetron HCl (Zofran) 4 mg Q6H PRN IVP Nausea & Vomiting 05/09/17 06:45 06/08/17 06:44 Pantoprazole 40 mg 40 mg EVERY 12 HOURS IVP 05/09/17 12:30 06/08/17 12:29 05/11/17 08:37 Polyethylene Glycol (Miralax) 17 gm DAILYPRN PRN ORAL Constipation 05/09/17 06:45 06/08/17 06:44 Vancomycin HCl 1 ea 1 ea DAILY PRN MISC Per rx protocol 05/10/17 20:30 06/09/17 20:29 Vancomycin HCl/ Dextrose (Vancomycin/D5W) 275 ml @ 183.708 mls/hr Q12HR@1000,2200 IVPB 05/11/17 10:00 05/16/17 09:59 05/11/17 10:00 JUDSON MURRELL May 11, 2017 12:00
--- NOTE | 2017-05-11 12:20 | Infectious Diseases Prog Note ---
Assessment/Plan Assessment/Plan A: High grade coag negative staph bacteremia in setting of PPM and ESBL Klebsiella cystitis. Low-grade fever, SP Bacteremia : high grade coag neg staph may need to ro PPM infection by RONA ESBL Klebsiella cystitis, pending 2nd GNR in urine. Pleural effusion, looks very small on Sacral decubitus, not grossly infected, continue to monitor. quadriplegia Atrial fibrillation PE History of pacemaker HTN COPD Status post trach and PEG placement Gout Diabetes PLAN: continue IV Vanco day #2. d/c cefepime. Start Ertapenem 1gm IV q24hr x3 days for ESBL Kleb cystitis. surveillance blood cx now. Monitor CBC. Monitor BMP. Monitor cultures (blood, urine, and sputum). Monitor chest x-ray. Recommend RONA to r/o Pacemaker lead infection. I am covering for Dr. Siu. Subjective Allergies: Coded Allergies: No Known Allergies (Unverified , 02/04/17) Objective Vital Signs Last 24 Hour Vital Signs Date Time Temp Pulse Resp B/P Pulse Ox O2 Delivery O2 Flow Rate FiO2 05/11/17 11:18 97.8 63 17 154/81 100 Mechanical Ventilator 05/11/17 10:53 60 16 30 05/11/17 08:38 69 05/11/17 08:38 69 143/85 05/11/17 08:36 98.2 69 18 143/85 100 Mechanical Ventilator 05/11/17 08:32 62 20 30 05/11/17 08:00 40 05/11/17 07:46 64 05/11/17 07:27 63 17 30 05/11/17 05:05 60 17 30 05/11/17 04:00 40 05/11/17 04:00 99.2 65 17 127/78 99 Mechanical Ventilator 05/11/17 04:00 71 05/11/17 03:04 61 17 30 05/11/17 01:30 60 32 30 05/11/17 00:00 65 05/11/17 00:00 40 05/10/17 23:50 99.1 68 18 119/66 100 Mechanical Ventilator 05/10/17 23:30 65 17 30 05/10/17 22:33 68 17 Mechanical Ventilator 30 05/10/17 21:30 62 19 30 05/10/17 20:00 40 05/10/17 20:00 64 05/10/17 19:58 99.4 60 17 118/88 100 Mechanical Ventilator 05/10/17 19:30 63 17 30 05/10/17 17:30 98.9 61 21 127/77 100 Mechanical Ventilator 30 05/10/17 17:19 64 128/87 05/10/17 16:47 64 16 35 05/10/17 16:00 99.5 63 17 128/87 100 Mechanical Ventilator 40 05/10/17 16:00 40 05/10/17 15:35 98.4 64 20 124/76 100 Mechanical Ventilator 30 05/10/17 15:08 62 05/10/17 14:50 98.3 61 20 120/72 100 Mechanical Ventilator 30 05/10/17 14:41 65 16 35 05/10/17 14:15 98.4 63 21 128/82 100 Mechanical Ventilator 30 05/10/17 13:04 70 17 35 05/10/17 12:28 98.6 69 20 124/84 100 Mechanical Ventilator 30 Height (Feet): 5 Height (Inches): 10.00 Weight (Pounds): 160 General Appearance: no acute distress HEENT: anicteric Respiratory/Chest: lungs clear Cardiovascular: pacemaker/AICD - pacemaker site w/o warmth, erythema, or TTP, other Abdomen: soft, non tender Microbiology Date/Time Source Procedure Growth Status 05/09/17 03:00 Blood Blood Culture - Preliminary Staphylococcus Sp Coag Neg Resulted 05/09/17 02:45 Blood Blood Culture - Preliminary Staphylococcus Sp Coag Neg Resulted 05/09/17 09:30 Sputum Gram Stain - Final Resulted 05/09/17 09:30 Sputum Culture - Preliminary Gram Negative Bacillus 1 Gram Negative Bacillus 2 Resulted 05/09/17 07:00 Nasal Nares MRSA Culture - Final NO METHICILLIN RESISTANT STAPH AUREUS... Complete 05/09/17 02:59 Urine,Clean Catch Urine Culture - Preliminary Klebsiella Pneumoniae Esbl Gram Negative Bacillus 2 Resulted 05/09/17 21:00 Sacral Wound Gram Stain Pending Resulted 05/09/17 21:00 Sacral Wound Wound Culture - Preliminary Resulted 05/09/17 07:00 Rectum VRE Culture - Final Enterococcus Faecalis - Vre Complete Laboratory Tests Test 05/10/17 18:20 05/11/17 03:45 Stool Occult Blood Negative (NEGATIVE) White Blood Count 7.8 K/UL (4.8-10.8) Red Blood Count 2.88 M/UL (4.70-6.10) L Hemoglobin 9.1 G/DL (14.2-18.0) L Hematocrit 27.9 % (42.0-52.0) L Mean Corpuscular Volume 97 FL (80-99) Mean Corpuscular Hemoglobin 31.5 PG (27.0-31.0) H Mean Corpuscular Hemoglobin Concent 32.5 G/DL (32.0-36.0) Red Cell Distribution Width 16.4 % (11.6-14.8) H Platelet Count 174 K/UL (150-450) Mean Platelet Volume 6.7 FL (6.5-10.1) Neutrophils (%) (Auto) 70.9 % (45.0-75.0) Lymphocytes (%) (Auto) 10.0 % (20.0-45.0) L Monocytes (%) (Auto) 8.3 % (1.0-10.0) Eosinophils (%) (Auto) 9.9 % (0.0-3.0) H Basophils (%) (Auto) 0.9 % (0.0-2.0) Sodium Level 141 mEQ/L (135-145) Potassium Level 3.6 mEQ/L (3.4-4.9) Chloride Level 100 mEQ/L (98-107) Carbon Dioxide Level 30 mEQ/L (20-30) Anion Gap 11 (5-15) Blood Urea Nitrogen 22 mg/dL (7-23) Creatinine 0.6 mg/dL (0.7-1.2) L Estimat Glomerular Filtration Rate mL/min (>60) Glucose Level 110 mg/dL (74-106) H Calcium Level 8.6 mg/dL (8.6-10.2) Phosphorus Level 3.4 mg/dL (2.5-4.8) Magnesium Level 2.0 mg/dL (1.7-2.5) Total Bilirubin 1.0 mg/dL (0.0-1.2) Aspartate Amino Transf (AST/SGOT) 16 U/L (5-40) Alanine Aminotransferase (ALT/SGPT) 8 U/L (3-41) Alkaline Phosphatase 80 U/L (40-129) Total Protein 7.1 g/dL (6.6-8.7) Albumin 2.6 g/dL (3.5-5.2) L Globulin 4.5 g/dL Albumin/Globulin Ratio 0.5 (1.0-2.7) L Current Medications Medications (Trade) Dose Ordered Sig/Kiet Route PRN Reason Start Time Stop Time Status Last Admin Dose Admin Acetaminophen (Tylenol) 650 mg Q4H PRN ORAL FEVER 05/09/17 06:45 06/08/17 06:44 Albuterol/ Ipratropium (DuoNeb 0.5-3(2.5)mg/3ml) 3 ml Q4H PRN HHN Shortness of Breath 05/09/17 06:45 05/14/17 06:44 Carvedilol (Coreg) 3.125 mg TWICE A DAY GT 05/09/17 09:00 06/08/17 08:59 05/11/17 08:38 Cefepime HCl/ Dextrose (Maxipime/D5W) 110 ml @ 220 mls/hr Q24H IVPB 05/09/17 16:00 05/16/17 15:59 05/10/17 17:38 Dextrose (Dextrose 50%) STAT PRN IV Hypoglycemia 05/09/17 06:45 06/08/17 06:44 Digoxin (Lanoxin) 0.125 mg DAILY GT 05/09/17 09:00 06/08/17 08:59 05/11/17 08:38 Heparin Sodium (Porcine) (Heparin 5000 units/ml) 5,000 units EVERY 12 HOURS SUBQ 05/09/17 09:00 06/08/17 08:59 05/11/17 08:41 Insulin Aspart (NovoLOG) EVERY 6 HOURS SUBQ 05/09/17 12:30 06/08/17 12:29 05/11/17 00:01 Lorazepam (Ativan 2mg/ml 1ml) 2 mg Q2H PRN IV For Anxiety 05/09/17 06:45 05/16/17 06:44 Morphine Sulfate (Morphine Sulfate) 4 mg Q4H PRN IVP Severe Pain (Pain Scale 7-10) 05/09/17 06:45 05/16/17 06:44 05/09/17 09:30 Ondansetron HCl (Zofran) 4 mg Q6H PRN IVP Nausea & Vomiting 05/09/17 06:45 06/08/17 06:44 Pantoprazole 40 mg 40 mg EVERY 12 HOURS IVP 05/09/17 12:30 06/08/17 12:29 05/11/17 08:37 Polyethylene Glycol (Miralax) 17 gm DAILYPRN PRN ORAL Constipation 05/09/17 06:45 06/08/17 06:44 Vancomycin HCl 1 ea 1 ea DAILY PRN MISC Per rx protocol 05/10/17 20:30 06/09/17 20:29 Vancomycin HCl/ Dextrose (Vancomycin/D5W) 275 ml @ 183.708 mls/hr Q12HR@1000,2200 IVPB 05/11/17 10:00 05/16/17 09:59 05/11/17 10:00 Glenn Jacobs M.D. May 11, 2017 12:20
[2017-05-11] MEDS ORDERED: Ertapenem 1 GM in NS 55 ML IVPB SCH (14:00)
[2017-05-11] MEDS ORDERED: Tubing Blood Filter IV ONE (16:36)
[2017-05-11] MEDS ORDERED: Tubing IV Secondary IV ONE (16:36)
[2017-05-11] MEDS ORDERED: NS 275ml ONE (16:36)
--- NOTE | 2017-05-11 17:34 | Cardiology Report ---
APPROVED REPORT EXAM: Two-dimensional and M-mode echocardiogram with Doppler and color Doppler. INDICATION Left ventricular function M-Mode DIMENSIONS IVSd1.0 (0.7-1.1cm)Left Atrium (MM)4.2 (1.6-4.0cm) LVDd5.1 (3.5-5.6cm)Aortic Root3.1 (2.0-3.7cm) PWd1.0 (0.7-1.1cm)Aortic Cusp Exc.1.9 (1.5-2.0cm) LVDs3.8 (2.5-4.0cm) PWs0.9 cm Technically difficult study due to poor acoustic windows. Normal left ventricular chamber size, systolic function and wall motion. Left ventricular ejection fraction estimated to be 55-60%. No evidence of left ventricular hypertrophy. Pleural effusion. Small posterior pericardial effusion. Moderate left atrial enlargement by 2D. Mild right atrial enlargement by 2D. Focal aortic valve sclerosis with adequate cusp excursion Thickened mitral valve leaflets with normal excursion. Mitral annulus and aortic root calcification. Pulmonic valve not well visualized. Normal tricuspid valve structure. IVC is normal in size with physiologic collapse. Probable pacemaker wire present in the right side chambers. A color flow and spectral Doppler study was performed and revealed: No aortic regurgitation. Mild mitral regurgitation. Mitral inflow non diagnostic Mild tricuspid regurgitation. Tricuspid systolic velocities suggests peak right ventricular systolic pressure of 28 mmHg
--- NOTE | 2017-05-12 15:10 | Diagnostic Imaging Report ---
APPROVED REPORT CPT Code: 16073 Present Symptoms Lower Extremity Pain: Bilateral BILATERAL: Imaging reveals a patent deep venous system bilaterally. There is no evidence of thrombus within the femoral, popliteal or tibial segments. The greater saphenous veins are also within normal limits. Doppler indicates normal spontaneous flow within these segments.
--- NOTE | 2017-05-12 22:22 | Discharge Summary ---
Discharge Summary Hospital Course Date of Admission May 09, 2017 at 04:10 Date of Discharge May 11, 2017 at 16:37 Admitting Diagnosis HYPOKALEMIA,URINARY TRACT INFECTION HPI Padmini Martinez is a 72 year old male who was admitted on May 09, 2017 at 04:10 for Hypokalemia,Urinary Tract Infection Hospital Course [id number] Discharge Discharge Disposition Patient was discharged to SNF/Subacute Facility(03) Discharge Diagnoses: Zina Dior NP May 12, 2017 22:21
--- NOTE | 2017-05-13 06:30 | Discharge Summary 2 SIG ---
DATE OF ADMISSION: 05/09/2017 DATE OF DISCHARGE: 05/11/2017 CONSULTANTS: 1. Charles La M.D. 2. Keegan Pedraza M.D. 3. Benjamin Siu M.D. 4. Jordon Kim M.D. BRIEF HOSPITAL COURSE: The patient is a 72-year-old male with history of chronic trach, vent and PEG with pacemaker, [facility] resident, was brought in due to worsening pleural effusion and hypokalemia. The patient has a history of functional quadriplegia secondary to spinal stenosis, COPD, congestive heart failure and DVT. On evaluation at ED, potassium level was 2.7 and due to the patient being chronically ill will need evaluation and further management. Chest x-ray showed no pneumothorax with left effusion with pulmonary vascular consistent with congestive heart failure and bilateral pleural effusions. He was seen by Dr. Kim. ProBNP was 3396. EKG showed atrial fibrillation with V pacing. He is on chronic anticoagulation with Xarelto and did not appear to be on exacerbation of his chronic congestive heart failure. Digoxin and Coreg was continued for rate control. Echocardiogram done showed ejection fraction of 55% to 60%. Dr. La was consulted for oliguria and electrolyte imbalance and was given cefepime for leukocytosis. He had low-grade fever and vancomycin was added. Blood culture showed coagulase-negative Staph. Urine culture showed growth of Klebsiella, ESBL and Providencia. Sputum culture showed growth of Pseudomonas Acinetobacter and MDR. Wound culture with gram-negative and Staphylococcus. The patient will eventually need to rule out EPM infection by RONA as the patient has a high-grade coagulase negative Staph bacteremia and ESBL Klebsiella cystitis. He was eventually discharged to a contracted facility. FINAL DIAGNOSES: 1. Coagulase negative Staphylococcus bacteremia. 2. Extended Spectrum Beta-Lactamase Klebsiella cystitis. 3. Pleural effusion. 4. Sacral decubitus pressure ulcer stage IV, present on admission. 5. Right lower lateral leg stage III pressure ulcer, present on admission. 6. Atrial fibrillation. 7. Hypertension. 8. Chronic obstructive pulmonary disease. 9. Chronic tracheostomy and percutaneous endoscopic gastrostomy. 10. Gout. 11. Chronic systolic congestive heart failure. 12. Functional quadriplegia. 13. Mitral regurgitation. 14. Anemia. 15. Hypokalemia. 16. Anemia requiring two units of packed red blood cells blood transfusion (Xarelto was discontinued). Keegan Pedraza M.D. I have been assigned to dictate discharge summary on this account and I was not involved in the patient's management. Zina Dior N.P. DR: JUMANA JOB#: [id number] CC:
== END 2017-05-11 16:37 | disposition short-term general hospital (02) | DRG 640 ==
LOC: EDBD 02:20 → EMR 02:34 → ICU 04:10 → EDBEDREQ 05:49 → 2W 07:45 → ICU 08:00 → 2W 11:41
PROC: 5A1945Z Respiratory Ventilation, 24-96 Consecutive Hours (ICD-10-PCS; principal; 2017-05-09)
DX: E87.6 Hypokalemia (principal); R53.2 Functional quadriplegia; Z99.11 Dependence on respirator [ventilator] status; L89.154 Pressure ulcer of sacral region, stage 4; J90 Pleural effusion, not elsewhere classified; J96.10 Chronic respiratory failure, unspecified whether with hypoxia or hypercapnia; I11.0 Hypertensive heart disease with heart failure; I95.9 Hypotension, unspecified; I50.22 Chronic systolic (congestive) heart failure; L89.893 Pressure ulcer of other site, stage 3; N39.0 Urinary tract infection, site not specified; R78.81 Bacteremia; Z93.0 Tracheostomy status; Z86.73 Personal history of transient ischemic attack (TIA), and cerebral infarction without residual deficits; Z95.0 Presence of cardiac pacemaker; D64.9 Anemia, unspecified; M48.00 Spinal stenosis, site unspecified; B96.1 Klebsiella pneumoniae [K. pneumoniae] as the cause of diseases classified elsewhere; B95.8 Unspecified staphylococcus as the cause of diseases classified elsewhere; J44.9 Chronic obstructive pulmonary disease, unspecified; I34.0 Nonrheumatic mitral (valve) insufficiency; I48.2 Chronic atrial fibrillation; Z79.01 Long term (current) use of anticoagulants
CPT/HCPCS: 36415; 36600; 71010; 80053; 80061; 80162; 81003; 82270; 82533; 82550; 82607; 82728; 82746; 82803; 82962; 82977; 83036; 83540; 83550; 83605; 83735; 83880; 84100; 84443; 84484; 84550; 85025; 85610; 85730; 86140; 86850; 86900; 86901; 86920; 87040; 87070; 87081; 87086; 87181; 87205; 93005; 93306; 93970; 94002; 94003; 94664; J1815